=== PATIENT | female | born 1945 | race Caucasian/White ===

== ENCOUNTER 2016-03-05 17:52 | Emergency (ER) | payer MEDICARE ==
[2016-03-05 20:45] VITALS: TEMP 98.9
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
[2016-03-05] MEDS ORDERED: KETOROLAC TROMETHAMINE INJ 30 MG/ML VIAL IM ONE (21:00)
[2016-03-05] MEDS ORDERED: HYDROmorphone HCL INJ 2 MG/ML VIAL IM SCH (21:00)
--- NOTE | 2016-03-05 21:54 | ED.PDOC ---
History of Present Illness - General Chief Complaint: GI Problem Stated Complaint: LEFT GROIN PAIN Time Seen by Provider: 03/05/16 20:04 Source: patient Exam Limitations: no limitations - History of Present Illness Initial Comments: the patient is 70-year-old female presenting to the emergency room secondary to acute onset left inguinal and hip pain starting after she was trying to get from her wheelchair to her bed. She did not fall. The pain was immediate and excruciating. She now primarily has pain with attempting to adduct the left lower extremity. There is no crepitus. There is no bruising. There is no deformity. She does also have some discomfort with flexion at the knee at the hip. Timing/Duration: 1/2 hour Severity: severe Improving Factors: immobilization Worsening Factors: movement Associated Symptoms: denies symptoms Allergies/Adverse Reactions: Allergies Codeine Allergy (Verified 11/28/15 12:46) Home Medications: Ambulatory Orders Clonazepam 0.5 mg PO DAILY PRN 12/05/12 Losartan Potassium 50 mg PO BID #0 12/08/12 Metoprolol Tartrate 50 mg PO BID #0 12/08/12 Montelukast Sodium 10 mg PO HS #0 12/08/12 Venlafaxine HCl [Venlafaxine HCl ER] 150 mg PO BID #0 12/08/12 Atorvastatin Calcium [Lipitor] 10 mg PO BEDTIME 10/17/13 tiZANidine [Zanaflex] 4 mg PO TID PRN 10/17/13 HYDROcodone 5MG/APAP 325MG [[place] 5/325] 1 ea PO Q4H PRN 03/02/14 Folic Acid 1 mg PO DAILY 03/11/14 Furosemide 80 mg PO DAILY@1200 03/11/14 Immune Globulin (Human) IV or [Gammagard Liquid] 1 inj IJ WKLY 03/11/14 Levothyroxine Sodium 175 mcg PO ACBK 03/11/14 Mirtazapine 30 mg PO BEDTIME 03/11/14 [place]-3 Fatty Acids [Fish Oil 1200 mg] 1,200 mg PO BEDTIME 03/11/14 metOLazone [Zaroxolyn] 2.5 mg PO PRN PRN 03/11/14 Cholecalciferol [Vitamin D3] 1,000 unit PO DAILY 08/23/14 Metformin HCl 500 mg PO DAILYBK 08/23/14 Potassium Chloride [Micro-K] 40 meq PO DAILY 08/23/14 Vitamin E [E-400] 1,000 unit PO DAILY 08/23/14 Acetaminophen [Tylenol] 1 - 2 mg PO Q4H PRN 09/12/15 Albuterol Sulfate Nebs [Proventil Nebs] 2.5 mg INH Q1H PRN 09/12/15 Baclofen 5 mg PO TID PRN 09/12/15 Benzonatate 200 mg PO TID PRN 09/12/15 Cranberry-Vitamin C-Vitamin E [Cranberry Plus Vitamin C 140-100-3 mg-mg-Unit] 1 cap PO BID 09/12/15 Cyanocobalamin [B-12] 1,000 mcg PO DAILY 09/12/15 Diphenhydramine HCl 1 - 2 mg PO PRN PRN 09/12/15 Ipratropium Brom 0.03% Nasal [Atrovent Nasal [place] 0.03%] 1 spray BNAS Q4H PRN 09/12/15 Lidocaine 4% Topical [Xylocaine 4% Topical] 0 ml TOP PRN 09/12/15 Mirabegron [Myrbetriq] 25 mg PO DAILY 09/12/15 Mycostatin 30 gm TOP Q12H 09/12/15 Nitroglycerin 0.4 mg Tab [Nitrostat] 0.4 ea SL .Q5M PRN 09/12/15 Pantoprazole Sodium [Protonix] 40 mg PO ACBK 09/12/15 Potassium Chloride [Potassium Chloride ER] 30 meq PO 1200,2100 09/12/15 Prednisone 5 mg PO TID 09/12/15 Rizatriptan Benzoate 10 mg PO DAILY PRN 09/12/15 Sucralfate Tab [Carafate Tab] 1 gm PO AC 09/12/15 Triamcinolone Acetonide (Nasal [Nasacort Allergy 24Hr Chi] 2 spray NA DAILY PRN 09/12/15 Uloric 40 mg PO DAILY 09/12/15 Zaleplon [Sonata] 10 - 20 mg PO BEDTIME PRN 09/12/15 Albuterol Sulfate Nebs [Proventil Nebs] 2.5 mg INH QID #30 vial 09/15/15 Bumetanide [Bumex] 0.5 mg PO DAILY 11/28/15 Furosemide [Lasix Tab] 120 mg PO DAILY 11/28/15 Mupirocin Calcium (Topical) [Bactroban] 2 % EX BID 11/28/15 Pregabalin [Lyrica] 100 mg PO TID 11/28/15 Probiotic Product [Probiotic Daily] 1 cap PO BID 11/28/15 Guaifenesin [Mucinex] 600 mg PO BID 01/14/16 Insulin Lispro [Humalog] 0 u SUBCU ACHS #0 pen 01/19/16 Miconazole Nitrate Vag Supp [Monistat 7 Supp] 100 mg VAG BEDTIME #0 sup levoFLOXacin [Levaquin] 500 mg PO Q24H #27 tab 01/19/16 metroNIDAZOLE [Flagyl] 500 mg PO Q8H #81 tab 01/19/16 Xccomddxocsta-Bthl-Rfaspnofwe [Fioricet] 1 ea PO Q8H PRN #21 tab 03/05/16 Review of Systems - Review of Systems Review of Systems: 03/05/16 21:53 for new symptoms only Constitutional: States: no symptoms reported EENTM: States: no symptoms reported Respiratory: States: no symptoms reported Cardiology: States: no symptoms reported Gastrointestinal/Abdominal: States: no symptoms reported Genitourinary: States: no symptoms reported Musculoskeletal: States: see HPI Skin: States: no symptoms reported Neurological: States: no symptoms reported All other Systems: No Change from Baseline Past Medical History (General) - Patient Medical History Hx Seizures: No Hx Stroke: No Hx Dementia: No Hx Asthma: Yes Hx of COPD: Yes Hx Cardiac Disorders: Yes - CAD Hx Congestive Heart Failure: Yes Hx Pacemaker: No Hx Hypertension: Yes Hx Thyroid Disease: Yes - hypothyroidism Hx Diabetes: Yes Hx Gastroesophageal Reflux: Yes Hx Renal Disease: No Hx Cancer: No Hx of HIV: No Hx Hepatitis C: No Hx MRSA: Yes MRSA Source:: Wound - Vaccination History Hx Tetanus, Diphtheria Vaccination: No Hx Influenza Vaccination: Yes Hx Pneumococcal Vaccination: Yes - Social History Hx Tobacco Use: No Hx Chewing Tobacco Use: No Hx Alcohol Use: No Hx Substance Use: No Hx Substance Use Treatment: No Hx Depression: Yes Hx Physical Abuse: No Hx Emotional Abuse: No Hx Suspected Abuse: No - Female History Patient : No Family Medical History - Family History Father Living Status: Age at (years of age): 92 Cause of : [place], kidney failure Hx Family Hypertension: Yes Hx Family Diabetes: Yes Mother Family History: Unknown Living Status: Age at (years of age): 82 Cause of : leukemia and chf Hx Family Asthma: No Hx Family Congestive Heart Failure: Yes Hx Family Hypertension: Yes Hx Family Stroke: Yes Hx Cardiac Disease: Yes Hx Family Diabetes: No Hx Family Cancer: No Physical Exam - Physical Exam General Appearance: Alert, Anxious Eye Exam: bilateral normal Ears, Nose, Throat: normal ENT inspection, normal pharynx - nasal cannulas in place Neck: full range of motion, supple Respiratory: normal breath sounds, no respiratory distress, no accessory muscle use - nasal cannula in place Cardiovascular/Chest: normal peripheral pulses, no edema, other - regular rate Peripheral Pulses: radial,right: 2+, radial,left: 2+, dorsalis pedis,right: 2+, dorsalis pedis,left: 2+ Gastrointestinal/Abdominal: non tender, soft Rectal Exam: deferred Back Exam: normal inspection Extremity: normal inspection, no pedal edema, normal capillary refill, other - the patient has tenderness to palpation over the anterior proximal and medial thigh. On the left. No gross deformity. No bruising. Passive range of motion appears to be preserved. Active range of motion is severely limited due to pain. Neurologic: alert, normal mood/affect, oriented x 3 Skin Exam: normal color Comments: Vital Signs - 24 hr 03/05/16 03/05/16 20:40 21:10 Temperature 98.9 F Pulse Rate [LA] 93 H 84 Respiratory 20 24 Rate Blood Pressure 150/90 105/63 [LA] O2 Sat by Pulse 100 93 L Oximetry Progress - Progress Progress: 03/05/16 21:55 the patient is 70-year-old female that appears to have a left proximal thigh abductor muscle strain. [facility] this. She will be written for some additional Fioricet for pain control. She can otherwise use her chronic pain medications for this. She needs to not try and perform transfers on her own, she needs the help of the [facility] staff. ER warnings were given. - Results/Orders Results/Orders: x-ray of the pelvis and left hip are grossly within normal limits. Departure - Departure Clinical Impression: Injury of adductor muscle and tendon of left thigh Qualifiers: Encounter type: initial encounter Qualifier Code: (S76.202A) Unspecified injury of adductor muscle, fascia and tendon of left thigh, initial encounter Disposition: Discharge to Home or Self Care Condition: Fair Departure Forms: ED Discharge - Pt. Copy, Patient Portal Self Enrollment Instructions: Muscle Strain, DI for Muscle Strain Diet: diabetic diet Activity: increase activity as tolerated Referrals: Willard Butler MD [Primary Care Provider] - 1-2 Weeks Prescriptions: Odzlrdwwjwizh-Kklw-Fpexciayvy [Fioricet] 1 ea PO Q8H PRN #21 tab PRN Reason: Pain Home Medications: Ambulatory Orders Clonazepam 0.5 mg PO DAILY PRN 12/05/12 Losartan Potassium 50 mg PO BID #0 12/08/12 Metoprolol Tartrate 50 mg PO BID #0 12/08/12 Montelukast Sodium 10 mg PO HS #0 12/08/12 Venlafaxine HCl [Venlafaxine HCl ER] 150 mg PO BID #0 12/08/12 Atorvastatin Calcium [Lipitor] 10 mg PO BEDTIME 10/17/13 tiZANidine [Zanaflex] 4 mg PO TID PRN 10/17/13 HYDROcodone 5MG/APAP 325MG [[place] 5/325] 1 ea PO Q4H PRN 03/02/14 Folic Acid 1 mg PO DAILY 03/11/14 Furosemide 80 mg PO DAILY@1200 03/11/14 Immune Globulin (Human) IV or [Gammagard Liquid] 1 inj IJ WKLY 03/11/14 Levothyroxine Sodium 175 mcg PO ACBK 03/11/14 Mirtazapine 30 mg PO BEDTIME 03/11/14 [place]-3 Fatty Acids [Fish Oil 1200 mg] 1,200 mg PO BEDTIME 03/11/14 metOLazone [Zaroxolyn] 2.5 mg PO PRN PRN 03/11/14 Cholecalciferol [Vitamin D3] 1,000 unit PO DAILY 08/23/14 Metformin HCl 500 mg PO DAILYBK 08/23/14 Potassium Chloride [Micro-K] 40 meq PO DAILY 08/23/14 Vitamin E [E-400] 1,000 unit PO DAILY 08/23/14 Acetaminophen [Tylenol] 1 - 2 mg PO Q4H PRN 09/12/15 Albuterol Sulfate Nebs [Proventil Nebs] 2.5 mg INH Q1H PRN 09/12/15 Baclofen 5 mg PO TID PRN 09/12/15 Benzonatate 200 mg PO TID PRN 09/12/15 Cranberry-Vitamin C-Vitamin E [Cranberry Plus Vitamin C 140-100-3 mg-mg-Unit] 1 cap PO BID 09/12/15 Cyanocobalamin [B-12] 1,000 mcg PO DAILY 09/12/15 Diphenhydramine HCl 1 - 2 mg PO PRN PRN 09/12/15 Ipratropium Brom 0.03% Nasal [Atrovent Nasal [place] 0.03%] 1 spray BNAS Q4H PRN 09/12/15 Lidocaine 4% Topical [Xylocaine 4% Topical] 0 ml TOP PRN 09/12/15 Mirabegron [Myrbetriq] 25 mg PO DAILY 09/12/15 Mycostatin 30 gm TOP Q12H 09/12/15 Nitroglycerin 0.4 mg Tab [Nitrostat] 0.4 ea SL .Q5M PRN 09/12/15 Pantoprazole Sodium [Protonix] 40 mg PO ACBK 09/12/15 Potassium Chloride [Potassium Chloride ER] 30 meq PO 1200,2100 09/12/15 Prednisone 5 mg PO TID 09/12/15 Rizatriptan Benzoate 10 mg PO DAILY PRN 09/12/15 Sucralfate Tab [Carafate Tab] 1 gm PO AC 09/12/15 Triamcinolone Acetonide (Nasal [Nasacort Allergy 24Hr Chi] 2 spray NA DAILY PRN 09/12/15 Uloric 40 mg PO DAILY 09/12/15 Zaleplon [Sonata] 10 - 20 mg PO BEDTIME PRN 09/12/15 Albuterol Sulfate Nebs [Proventil Nebs] 2.5 mg INH QID #30 vial 09/15/15 Bumetanide [Bumex] 0.5 mg PO DAILY 11/28/15 Furosemide [Lasix Tab] 120 mg PO DAILY 11/28/15 Mupirocin Calcium (Topical) [Bactroban] 2 % EX BID 11/28/15 Pregabalin [Lyrica] 100 mg PO TID 11/28/15 Probiotic Product [Probiotic Daily] 1 cap PO BID 11/28/15 Guaifenesin [Mucinex] 600 mg PO BID 01/14/16 Insulin Lispro [Humalog] 0 u SUBCU ACHS #0 pen 01/19/16 Miconazole Nitrate Vag Supp [Monistat 7 Supp] 100 mg VAG BEDTIME #0 sup levoFLOXacin [Levaquin] 500 mg PO Q24H #27 tab 01/19/16 metroNIDAZOLE [Flagyl] 500 mg PO Q8H #81 tab 01/19/16 Qybytadhvlwtn-Ewoi-Ddrzsacfnc [Fioricet] 1 ea PO Q8H PRN #21 tab 03/05/16 Additional Instructions: the patient is 70-year-old female that appears to have a left proximal thigh abductor muscle strain. She [facility] to [facility] to work around this. She will be written for some additional Fioricet for pain control. She can otherwise use her chronic pain medications for this. She needs to not try and perform transfers on her own, she needs the help of the [facility] staff. ER warnings were given.
[2016-03-05] MEDS ORDERED: HYDROmorphone HCL INJ 2 MG/ML VIAL IM ONE (22:57)
[2016-03-05 23:23] VITALS: BP 123/80; O2SAT 99
== END 2016-03-05 23:20 ==
LOC: ER 17:52
DX: S76.202A Unspecified injury of adductor muscle, fascia and tendon of left thigh, initial encounter (principal); J44.9 Chronic obstructive pulmonary disease, unspecified; I11.0 Hypertensive heart disease with heart failure; I50.9 Heart failure, unspecified; I25.10 Atherosclerotic heart disease of native coronary artery without angina pectoris; E03.9 Hypothyroidism, unspecified; E11.9 Type 2 diabetes mellitus without complications; K21.9 Gastro-esophageal reflux disease without esophagitis; Z86.14 Personal history of Methicillin resistant Staphylococcus aureus infection; Z88.6 Allergy status to analgesic agent; Z79.899 Other long term (current) drug therapy; Z79.4 Long term (current) use of insulin; X58.XXXA Exposure to other specified factors, initial encounter; Y92.122 Bedroom in nursing home as the place of occurrence of the external cause
CPT/HCPCS: 72170; 73502; J1170; J1885

== ENCOUNTER 2016-03-08 16:52 | Emergency (ER) | payer MEDICARE ==
[2016-03-08 17:04] VITALS: TEMP 97.5
--- NOTE | 2016-03-08 17:14 | ED.PDOC ---
History of Present Illness - General Chief Complaint: Respiratory Problem Stated Complaint: shortness of breath Time Seen by Provider: 03/08/16 17:09 Source: patient, RN notes reviewed, Vital Signs reviewed, EMS, [facility] records Exam Limitations: no limitations - History of Present Illness Initial Comments: Patient reports that during physical therapy today she developed some chest tightness with SOB and her oxygen saturation dropped into the 50's. Reports it feels the same as when she has had pneumonia or fluid build up in her lungs in the past. EMS gave her a neb treatment and her O2 sats improved up tp 92% Timing/Duration: 4-6 hours Severity: moderate Activities at Onset: activity Possible Cause: chronic episodes Improving Factors: medication, rest Worsening Factors: movement Associated Symptoms: chest pain, cough, edema Respiratory Risk Factors: other - Hx of CHF and COPD Allergies/Adverse Reactions: Allergies Codeine Allergy (Verified 11/28/15 12:46) Home Medications: Ambulatory Orders Clonazepam 0.5 mg PO Q6H PRN 12/05/12 Montelukast Sodium 10 mg PO HS #0 12/08/12 Venlafaxine HCl [Venlafaxine HCl ER] 150 mg PO BID #0 12/08/12 tiZANidine [Zanaflex] 4 mg PO TID PRN 10/17/13 HYDROcodone 5MG/APAP 325MG [[place] 5/325] 1 ea PO Q4H PRN 03/02/14 Folic Acid 1 mg PO DAILY 03/11/14 Furosemide 80 mg PO NOON 03/11/14 Levothyroxine Sodium 175 mcg PO ACBK 03/11/14 Mirtazapine 30 mg PO BEDTIME 03/11/14 [place]-3 Fatty Acids [Fish Oil 1200 mg] 1,200 mg PO BEDTIME 03/11/14 metOLazone [Zaroxolyn] 2.5 mg PO PRN PRN 03/11/14 Metformin HCl 500 mg PO DAILYBK 08/23/14 Potassium Chloride [Micro-K] 40 meq PO DAILY 08/23/14 Vitamin E [E-400] 1,000 unit PO DAILY 08/23/14 Acetaminophen [Tylenol] 1 - 2 mg PO Q4H PRN 09/12/15 Albuterol Sulfate Nebs [Proventil Nebs] 2.5 mg INH Q4H PRN 09/12/15 Benzonatate 200 mg PO TID PRN 09/12/15 Cranberry-Vitamin C-Vitamin E [Cranberry Plus Vitamin C 140-100-3 mg-mg-Unit] 1 cap PO BID 09/12/15 Diphenhydramine HCl 1 - 2 mg PO PRN PRN 09/12/15 Ipratropium Brom 0.03% Nasal [Atrovent Nasal [place] 0.03%] 1 spray BNAS Q4H PRN 09/12/15 Mirabegron [Myrbetriq] 25 mg PO DAILY 09/12/15 Nitroglycerin 0.4 mg Tab [Nitrostat] 0.4 ea SL .Q5M PRN 09/12/15 Pantoprazole Sodium [Protonix] 40 mg PO ACBK 09/12/15 Potassium Chloride [Potassium Chloride ER] 30 meq PO 1200,2100 09/12/15 Prednisone 5 mg PO TID 09/12/15 Rizatriptan Benzoate 10 mg PO DAILY PRN 09/12/15 Sucralfate Tab [Carafate Tab] 1 gm PO .TIDAC 09/12/15 Triamcinolone Acetonide (Nasal [Nasacort Allergy 24Hr Chi] 2 spray NA DAILY PRN 09/12/15 Uloric 40 mg PO DAILY 09/12/15 Zaleplon [Sonata] 10 - 20 mg PO BEDTIME PRN 09/12/15 Albuterol Sulfate Nebs [Proventil Nebs] 2.5 mg INH QID #30 vial 09/15/15 Bumetanide [Bumex] 0.5 mg PO DAILY PRN 11/28/15 Furosemide [Lasix Tab] 120 mg PO DAILY 11/28/15 Pregabalin [Lyrica] 100 mg PO TID 11/28/15 Guaifenesin [Mucinex] 600 mg PO BID 01/14/16 Miconazole Nitrate Vag Supp [Monistat 7 Supp] 100 mg VAG BEDTIME #0 sup Azithromycin Tab [Zithromax] 250 mg PO QDPC #4 tab 03/08/16 Cholecalciferol [Vitamin D3] 1,000 unit PO DAILY 03/08/16 Cyanocobalamin [B12] 1,000 mcg PO DAILY 03/08/16 Lactobacillus [Acidophilus] 2 cap PO BID 03/08/16 Losartan Potassium 25 mg PO BID 03/08/16 Metoprolol Tartrate 25 mg PO BID 03/08/16 SITagliptin [Januvia] 50 mg PO DAILY 03/08/16 Review of Systems - Review of Systems Constitutional: Denies: chills, diaphoresis, fever, malaise, weakness EENTM: States: no symptoms reported Respiratory: States: see HPI, cough, short of breath. Denies: stridor, wheezing Cardiology: States: chest pain, edema. Denies: palpitations, syncope Gastrointestinal/Abdominal: States: diarrhea. Denies: abdominal pain, constipation, nausea, vomiting Genitourinary: States: no symptoms reported Musculoskeletal: States: no symptoms reported Skin: States: no symptoms reported Neurological: States: headache. Denies: numbness, paresthesia, tingling, tremors, weakness Endocrine: States: no symptoms reported Past Medical History (General) - Patient Medical History Hx Seizures: No Hx Stroke: No Hx Dementia: No Hx Asthma: Yes Hx of COPD: Yes Hx Cardiac Disorders: Yes - CAD Hx Congestive Heart Failure: Yes Hx Pacemaker: No Hx Hypertension: Yes Hx Thyroid Disease: Yes - hypothyroidism Hx Diabetes: Yes Hx Gastroesophageal Reflux: Yes Hx Renal Disease: No Hx Cancer: No Hx of HIV: No Hx Hepatitis C: No Hx MRSA: Yes MRSA Source:: Wound Surgical History: appendectomy, tonsillectomy, Hysterectomy - Vaccination History Hx Tetanus, Diphtheria Vaccination: No Hx Influenza Vaccination: Yes Hx Pneumococcal Vaccination: Yes - Social History Hx Tobacco Use: No Hx Chewing Tobacco Use: No Hx Alcohol Use: No Hx Substance Use: No Hx Substance Use Treatment: No Hx Depression: Yes Hx Physical Abuse: No Hx Emotional Abuse: No Hx Suspected Abuse: No - Activities of Daily Living [facility] (if applicable[facility]:: [facility] - Female History Patient : No Family Medical History - Family History Father Living Status: Age at (years of age): 92 Cause of : [place], kidney failure Hx Family Hypertension: Yes Hx Family Diabetes: Yes Mother Family History: Unknown Living Status: Age at (years of age): 82 Cause of : leukemia and chf Hx Family Asthma: No Hx Family Congestive Heart Failure: Yes Hx Family Hypertension: Yes Hx Family Stroke: Yes Hx Cardiac Disease: Yes Hx Family Diabetes: No Hx Family Cancer: No Physical Exam - Physical Exam General Appearance: Alert, Comfortable, No apparent distress, Well Developed, Well Groomed, Well Hydrated, Well Nourished Neck: non-tender, full range of motion, supple, normal inspection Respiratory: chest non-tender, no respiratory distress, decreased breath sounds - RLL, accessory muscle use, crackles - bilaterally, wheezing - LLL Cardiovascular/Chest: regular rate, rhythm, no gallop, no murmur Peripheral Pulses: dorsalis pedis,right: 2+, dorsalis pedis,left: 2+ Gastrointestinal/Abdominal: normal bowel sounds, non tender, soft Extremity: normal range of motion, non-tender, pedal edema - 2-3+ pitting edema Neurologic: no motor/sensory deficits, alert, normal mood/affect, oriented x 3 Skin Exam: normal color, warm/dry Lymphatic: no adenopathy Progress - Progress Progress: 03/08/16 19:27 Discussed results with patient. Overall things look good. Mildly elevated CK-MB and D Dimer can be explained by her recent fall. Elevated white count is most likely due to acute bronchitis and COPD exacerbation. She is maintaining her oxygen saturation much better here - consistently >92% on 3L. - EKG/XRAY/CT EKG: Sinus, no ST T wave changes Departure - Departure Clinical Impression: Acute bronchitis, COPD exacerbation Time of Disposition: 19:30 Disposition: Discharge to Rehab Facility Condition: Fair Departure Forms: ED Discharge - Pt. Copy, Patient Portal Self Enrollment Instructions: DI for Acute Bronchitis, DI for Chronic Obstructive Pulmonary Disease Diet: resume usual diet Activity: increase activity as tolerated Prescriptions: Azithromycin Tab [Zithromax] 250 mg PO QDPC #4 tab Home Medications: Ambulatory Orders Clonazepam 0.5 mg PO Q6H PRN 12/05/12 Montelukast Sodium 10 mg PO HS #0 12/08/12 Venlafaxine HCl [Venlafaxine HCl ER] 150 mg PO BID #0 12/08/12 tiZANidine [Zanaflex] 4 mg PO TID PRN 10/17/13 HYDROcodone 5MG/APAP 325MG [[place] 5/325] 1 ea PO Q4H PRN 03/02/14 Folic Acid 1 mg PO DAILY 03/11/14 Furosemide 80 mg PO NOON 03/11/14 Levothyroxine Sodium 175 mcg PO ACBK 03/11/14 Mirtazapine 30 mg PO BEDTIME 03/11/14 [place]-3 Fatty Acids [Fish Oil 1200 mg] 1,200 mg PO BEDTIME 03/11/14 metOLazone [Zaroxolyn] 2.5 mg PO PRN PRN 03/11/14 Metformin HCl 500 mg PO DAILYBK 08/23/14 Potassium Chloride [Micro-K] 40 meq PO DAILY 08/23/14 Vitamin E [E-400] 1,000 unit PO DAILY 08/23/14 Acetaminophen [Tylenol] 1 - 2 mg PO Q4H PRN 09/12/15 Albuterol Sulfate Nebs [Proventil Nebs] 2.5 mg INH Q4H PRN 09/12/15 Benzonatate 200 mg PO TID PRN 09/12/15 Cranberry-Vitamin C-Vitamin E [Cranberry Plus Vitamin C 140-100-3 mg-mg-Unit] 1 cap PO BID 09/12/15 Diphenhydramine HCl 1 - 2 mg PO PRN PRN 09/12/15 Ipratropium Brom 0.03% Nasal [Atrovent Nasal [place] 0.03%] 1 spray BNAS Q4H PRN 09/12/15 Mirabegron [Myrbetriq] 25 mg PO DAILY 09/12/15 Nitroglycerin 0.4 mg Tab [Nitrostat] 0.4 ea SL .Q5M PRN 09/12/15 Pantoprazole Sodium [Protonix] 40 mg PO ACBK 09/12/15 Potassium Chloride [Potassium Chloride ER] 30 meq PO 1200,2100 09/12/15 Prednisone 5 mg PO TID 09/12/15 Rizatriptan Benzoate 10 mg PO DAILY PRN 09/12/15 Sucralfate Tab [Carafate Tab] 1 gm PO .TIDAC 09/12/15 Triamcinolone Acetonide (Nasal [Nasacort Allergy 24Hr Chi] 2 spray NA DAILY PRN 09/12/15 Uloric 40 mg PO DAILY 09/12/15 Zaleplon [Sonata] 10 - 20 mg PO BEDTIME PRN 09/12/15 Albuterol Sulfate Nebs [Proventil Nebs] 2.5 mg INH QID #30 vial 09/15/15 Bumetanide [Bumex] 0.5 mg PO DAILY PRN 11/28/15 Furosemide [Lasix Tab] 120 mg PO DAILY 11/28/15 Pregabalin [Lyrica] 100 mg PO TID 11/28/15 Guaifenesin [Mucinex] 600 mg PO BID 01/14/16 Miconazole Nitrate Vag Supp [Monistat 7 Supp] 100 mg VAG BEDTIME #0 sup Azithromycin Tab [Zithromax] 250 mg PO QDPC #4 tab 03/08/16 Cholecalciferol [Vitamin D3] 1,000 unit PO DAILY 03/08/16 Cyanocobalamin [B12] 1,000 mcg PO DAILY 03/08/16 Lactobacillus [Acidophilus] 2 cap PO BID 03/08/16 Losartan Potassium 25 mg PO BID 03/08/16 Metoprolol Tartrate 25 mg PO BID 03/08/16 SITagliptin [Januvia] 50 mg PO DAILY 03/08/16 Additional Instructions: Continue Oxygen @ 3L
[2016-03-08] MEDS ORDERED: HYDROcodone 5MG/APAP 325MG 1 EA TAB PO ONE (17:50)
--- NOTE | 2016-03-08 18:00 | RAD ---
EXAM DESCRIPTION: X-RAY CHEST- TWO VIEW CLINICAL HISTORY: Shortness of breath. COMPARISON: 12/18/2015 and 12/23/2014 TECHNIQUE: 2.0 views of the chest. FINDINGS: There is presence of mild atelectasis/parenchymal scarring in the left lower lobe of the lung, unchanged since 12/18/2015. There are no airspace infiltrates. There is no pleural effusion. There are no pneumothoraces. The cardiomediastinal contour is stable. IMPRESSION: There is presence of mild atelectasis/parenchymal scarring in the left lower lobe of the lung, unchanged since 12/18/2015. Electronically signed by: Elio Hernandez MD 03/08/2016 17:59
[2016-03-08] MEDS ORDERED: LORazepam 0.5 MG TAB PO ONE (18:18)
[2016-03-08 18:24] VITALS: O2SAT 95
[2016-03-08] MEDS ORDERED: methylPREDNISolone SODIUM SUC 125 MG/2 ML VIAL IV ONE (18:43)
[2016-03-08] MEDS ORDERED: SODIUM CHLORIDE 0.9% 1000ML 1,000 ML IVS ONE (18:43)
[2016-03-08] MEDS ORDERED: AZITHROMYCIN 250 MG TAB PO ONE (19:29)
[2016-03-08 19:34] VITALS: BP 119/71
== END 2016-03-08 20:39 ==
LOC: ER 16:52
DX: J44.0 Chronic obstructive pulmonary disease with (acute) lower respiratory infection (principal); J20.9 Acute bronchitis, unspecified; J44.1 Chronic obstructive pulmonary disease with (acute) exacerbation; I11.0 Hypertensive heart disease with heart failure; I50.9 Heart failure, unspecified; K21.9 Gastro-esophageal reflux disease without esophagitis; E03.9 Hypothyroidism, unspecified; F32.9 Major depressive disorder, single episode, unspecified; E11.9 Type 2 diabetes mellitus without complications; Z86.14 Personal history of Methicillin resistant Staphylococcus aureus infection; Z79.899 Other long term (current) drug therapy; Z88.6 Allergy status to analgesic agent

== ENCOUNTER 2016-03-09 08:39 | Emergency (ER) | payer MEDICARE ==
--- NOTE | 2016-03-09 09:14 | ED.PDOC ---
History of Present Illness - General Chief Complaint: Laceration Stated Complaint: laceration to left lower leg Time Seen by Provider: 03/09/16 09:06 Source: patient Exam Limitations: no limitations - History of Present Illness Initial Comments: Patient presents after hitting her left leg against a railing at home opening up a laceration. Patient says that there is pain at the laceration site and in her left ribs, which she said she fell against. No other physical complaints. Patient is very irritable and when I asked her to point towards her injury, she asked "Are you blind?" I asked her to just tell me where the laceration was and she told me. Patient is in no apparent distress and is very annoyed at being interrupted during a text conversation on her phone. She would like pain medications as well. She claims to have had a tetanus booster in the last 5 years. Timing/Duration: 1-3 hours Severity: moderate Worsening Factors: nothing Associated Symptoms: denies symptoms Allergies/Adverse Reactions: Allergies Codeine Allergy (Verified 03/09/16 09:04) Home Medications: Ambulatory Orders Clonazepam 0.5 mg PO Q6H PRN 12/05/12 Montelukast Sodium 10 mg PO HS #0 12/08/12 Venlafaxine HCl [Venlafaxine HCl ER] 150 mg PO BID #0 12/08/12 tiZANidine [Zanaflex] 4 mg PO TID PRN 10/17/13 HYDROcodone 5MG/APAP 325MG [[place] 5/325] 1 ea PO Q4H PRN 03/02/14 Folic Acid 1 mg PO DAILY 03/11/14 Furosemide 80 mg PO NOON 03/11/14 Levothyroxine Sodium 175 mcg PO ACBK 03/11/14 Mirtazapine 30 mg PO BEDTIME 03/11/14 Malin-3 Fatty Acids [Fish Oil 1200 mg] 1,200 mg PO BEDTIME 03/11/14 metOLazone [Zaroxolyn] 2.5 mg PO PRN PRN 03/11/14 Metformin HCl 500 mg PO DAILYBK 08/23/14 Potassium Chloride [Micro-K] 40 meq PO DAILY 08/23/14 Vitamin E [E-400] 1,000 unit PO DAILY 08/23/14 Acetaminophen [Tylenol] 1 - 2 mg PO Q4H PRN 09/12/15 Albuterol Sulfate Nebs [Proventil Nebs] 2.5 mg INH Q4H PRN 09/12/15 Benzonatate 200 mg PO TID PRN 09/12/15 Cranberry-Vitamin C-Vitamin E [Cranberry Plus Vitamin C 140-100-3 mg-mg-Unit] 1 cap PO BID 09/12/15 Diphenhydramine HCl 1 - 2 mg PO PRN PRN 09/12/15 Ipratropium Brom 0.03% Nasal [Atrovent Nasal [place] 0.03%] 1 spray BNAS Q4H PRN 09/12/15 Mirabegron [Myrbetriq] 25 mg PO DAILY 09/12/15 Nitroglycerin 0.4 mg Tab [Nitrostat] 0.4 ea SL .Q5M PRN 09/12/15 Pantoprazole Sodium [Protonix] 40 mg PO ACBK 09/12/15 Potassium Chloride [Potassium Chloride ER] 30 meq PO 1200,2100 09/12/15 Prednisone 5 mg PO TID 09/12/15 Rizatriptan Benzoate 10 mg PO DAILY PRN 09/12/15 Sucralfate Tab [Carafate Tab] 1 gm PO .TIDAC 09/12/15 Triamcinolone Acetonide (Nasal [Nasacort Allergy 24Hr Chi] 2 spray NA DAILY PRN 09/12/15 Uloric 40 mg PO DAILY 09/12/15 Zaleplon [Sonata] 10 - 20 mg PO BEDTIME PRN 09/12/15 Albuterol Sulfate Nebs [Proventil Nebs] 2.5 mg INH QID #30 vial 09/15/15 Bumetanide [Bumex] 0.5 mg PO DAILY PRN 11/28/15 Furosemide [Lasix Tab] 120 mg PO DAILY 11/28/15 Pregabalin [Lyrica] 100 mg PO TID 11/28/15 Guaifenesin [Mucinex] 600 mg PO BID 01/14/16 Miconazole Nitrate Vag Supp [Monistat 7 Supp] 100 mg VAG BEDTIME #0 sup Azithromycin Tab [Zithromax] 250 mg PO QDPC #4 tab 03/08/16 Cholecalciferol [Vitamin D3] 1,000 unit PO DAILY 03/08/16 Cyanocobalamin [B12] 1,000 mcg PO DAILY 03/08/16 Lactobacillus [Acidophilus] 2 cap PO BID 03/08/16 Losartan Potassium 25 mg PO BID 03/08/16 Metoprolol Tartrate 25 mg PO BID 03/08/16 SITagliptin [Januvia] 50 mg PO DAILY 03/08/16 Cephalexin Monohydrate [Keflex] 500 mg PO BID #10 cap 03/09/16 Review of Systems - Review of Systems Constitutional: States: no symptoms reported EENTM: States: no symptoms reported Respiratory: States: no symptoms reported Cardiology: States: no symptoms reported Gastrointestinal/Abdominal: States: no symptoms reported Genitourinary: States: no symptoms reported Musculoskeletal: States: no symptoms reported Skin: States: see HPI Neurological: States: no symptoms reported Endocrine: States: no symptoms reported Hematologic/Lymphatic: States: no symptoms reported Past Medical History (General) - Patient Medical History Hx Seizures: No Hx Stroke: No Hx Dementia: No Hx Asthma: Yes Hx of COPD: Yes - oxygen dependent Hx Cardiac Disorders: Yes - CAD Hx Congestive Heart Failure: Yes Hx Pacemaker: No Hx Hypertension: Yes Hx Thyroid Disease: Yes - hypothyroidism Hx Diabetes: Yes Hx Gastroesophageal Reflux: Yes Hx Renal Disease: No Hx Cancer: No Hx of HIV: No Hx Hepatitis C: No Hx MRSA: Yes MRSA Source:: Wound - Vaccination History Hx Tetanus, Diphtheria Vaccination: No Hx Influenza Vaccination: Yes Hx Pneumococcal Vaccination: Yes - Social History Hx Tobacco Use: No Hx Chewing Tobacco Use: No Hx Alcohol Use: No Hx Substance Use: No Hx Substance Use Treatment: No Hx Depression: Yes Hx Physical Abuse: No Hx Emotional Abuse: No Hx Suspected Abuse: No - Female History Patient is a Female of Child Bearing Age (10 -59 yrs old): No Patient : No Family Medical History - Family History Father Living Status: Age at (years of age): 92 Cause of : [place], kidney failure Hx Family Hypertension: Yes Hx Family Diabetes: Yes Mother Family History: Unknown Living Status: Age at (years of age): 82 Cause of : leukemia and chf Hx Family Asthma: No Hx Family Congestive Heart Failure: Yes Hx Family Hypertension: Yes Hx Family Stroke: Yes Hx Cardiac Disease: Yes Hx Family Diabetes: No Hx Family Cancer: No Physical Exam - Physical Exam General Appearance: Agitated Respiratory: lungs clear Cardiovascular/Chest: regular rate, rhythm Gastrointestinal/Abdominal: normal bowel sounds, non tender, soft Extremity: pedal edema - 4+ bipedal edema Neurologic: no motor/sensory deficits Skin Exam: other - 10 cm V shaped laceration on the lateral lower left leg. Adipose tissue visible. Hemostatic. Lymphatic: no adenopathy Progress - Progress Progress: 03/09/16 11:02 Morphine 4 mg IV x one and benadryl 25 mg IV x one. Area was prepped and draped in a sterile fashion. 12 cc of lidocaine with epinephrine was used to gain good local anesthesia. 16 interrupted sutures with 4-0 proline were used to obtain good wound edge approximation. Areas was clean, dry and hemostatic at the end of the procedure. Patient tolerated procedure well. Sent home with keflex 500 mg po bid x 5 days for infection prophylaxis. Departure - Departure Clinical Impression: Laceration Disposition: Discharge to SNF Condition: Good Departure Forms: ED Discharge - Pt. Copy, Patient Portal Self Enrollment Diet: resume usual diet Activity: increase activity as tolerated Prescriptions: Cephalexin Monohydrate [Keflex] 500 mg PO BID #10 cap Home Medications: Ambulatory Orders Clonazepam 0.5 mg PO Q6H PRN 12/05/12 Montelukast Sodium 10 mg PO HS #0 12/08/12 Venlafaxine HCl [Venlafaxine HCl ER] 150 mg PO BID #0 12/08/12 tiZANidine [Zanaflex] 4 mg PO TID PRN 10/17/13 HYDROcodone 5MG/APAP 325MG [[place] 5/325] 1 ea PO Q4H PRN 03/02/14 Folic Acid 1 mg PO DAILY 03/11/14 Furosemide 80 mg PO NOON 03/11/14 Levothyroxine Sodium 175 mcg PO ACBK 03/11/14 Mirtazapine 30 mg PO BEDTIME 03/11/14 Malin-3 Fatty Acids [Fish Oil 1200 mg] 1,200 mg PO BEDTIME 03/11/14 metOLazone [Zaroxolyn] 2.5 mg PO PRN PRN 03/11/14 Metformin HCl 500 mg PO DAILYBK 08/23/14 Potassium Chloride [Micro-K] 40 meq PO DAILY 08/23/14 Vitamin E [E-400] 1,000 unit PO DAILY 08/23/14 Acetaminophen [Tylenol] 1 - 2 mg PO Q4H PRN 09/12/15 Albuterol Sulfate Nebs [Proventil Nebs] 2.5 mg INH Q4H PRN 09/12/15 Benzonatate 200 mg PO TID PRN 09/12/15 Cranberry-Vitamin C-Vitamin E [Cranberry Plus Vitamin C 140-100-3 mg-mg-Unit] 1 cap PO BID 09/12/15 Diphenhydramine HCl 1 - 2 mg PO PRN PRN 09/12/15 Ipratropium Brom 0.03% Nasal [Atrovent Nasal [place] 0.03%] 1 spray BNAS Q4H PRN 09/12/15 Mirabegron [Myrbetriq] 25 mg PO DAILY 09/12/15 Nitroglycerin 0.4 mg Tab [Nitrostat] 0.4 ea SL .Q5M PRN 09/12/15 Pantoprazole Sodium [Protonix] 40 mg PO ACBK 09/12/15 Potassium Chloride [Potassium Chloride ER] 30 meq PO 1200,2100 09/12/15 Prednisone 5 mg PO TID 09/12/15 Rizatriptan Benzoate 10 mg PO DAILY PRN 09/12/15 Sucralfate Tab [Carafate Tab] 1 gm PO .TIDAC 09/12/15 Triamcinolone Acetonide (Nasal [Nasacort Allergy 24Hr Chi] 2 spray NA DAILY PRN 09/12/15 Uloric 40 mg PO DAILY 09/12/15 Zaleplon [Sonata] 10 - 20 mg PO BEDTIME PRN 09/12/15 Albuterol Sulfate Nebs [Proventil Nebs] 2.5 mg INH QID #30 vial 09/15/15 Bumetanide [Bumex] 0.5 mg PO DAILY PRN 11/28/15 Furosemide [Lasix Tab] 120 mg PO DAILY 11/28/15 Pregabalin [Lyrica] 100 mg PO TID 11/28/15 Guaifenesin [Mucinex] 600 mg PO BID 01/14/16 Miconazole Nitrate Vag Supp [Monistat 7 Supp] 100 mg VAG BEDTIME #0 sup Azithromycin Tab [Zithromax] 250 mg PO QDPC #4 tab 03/08/16 Cholecalciferol [Vitamin D3] 1,000 unit PO DAILY 03/08/16 Cyanocobalamin [B12] 1,000 mcg PO DAILY 03/08/16 Lactobacillus [Acidophilus] 2 cap PO BID 03/08/16 Losartan Potassium 25 mg PO BID 03/08/16 Metoprolol Tartrate 25 mg PO BID 03/08/16 SITagliptin [Januvia] 50 mg PO DAILY 03/08/16 Cephalexin Monohydrate [Keflex] 500 mg PO BID #10 cap 03/09/16 Additional Instructions: Take prescription medications as directed. Return to your primary doctor in 10 days for suture removal. Return to ER for increased bleeding, pain, or fever.
[2016-03-09] MEDS ORDERED: MORPHINE SULFATE INJ 10 MG/ML VIAL IV ONE (09:17)
[2016-03-09] MEDS ORDERED: diphenhydrAMINE HCL 50 MG/ML VIAL IV ONE (09:19)
[2016-03-09] MEDS ORDERED: LIDOCAINE 1% 10 ML VIAL INJ ONE (09:24)
--- NOTE | 2016-03-09 09:54 | RAD ---
EXAM DESCRIPTION: XR RIBS 2 VIEWS UNILATERAL CLINICAL HISTORY: 70 y/o F, fall with rib pain COMPARISON: 08 March 2016. TECHNIQUE: Three views. FINDINGS: No pneumothorax is detected. No rib fracturing is seen. IMPRESSION: Normal left rib detail. Electronically signed by: Reagan Shelton MD 03/09/2016 09:52
[2016-03-09] MEDS ORDERED: LIDOCAINE 1% W/ EPINEPHRINE 20 ML VIAL INJ ONE ×2 (10:15→10:45)
[2016-03-09] MEDS ORDERED: POVIDONE IODINE 10 % 15 ML UD TOP ONE (10:17)
[2016-03-09] MEDS ORDERED: POVIDONE IODINE 5% TOP ONE (11:14)
[2016-03-09] MEDS ORDERED: POVIDONE IODINE 10% TOP ONE (11:20)
[2016-03-09 13:14] VITALS: BP 152/79; TEMP 98.5; O2SAT 92
== END 2016-03-09 12:50 ==
LOC: ER 08:39
DX: S81.812A Laceration without foreign body, left lower leg, initial encounter (principal); J44.9 Chronic obstructive pulmonary disease, unspecified; E03.9 Hypothyroidism, unspecified; I11.0 Hypertensive heart disease with heart failure; I50.9 Heart failure, unspecified; E11.9 Type 2 diabetes mellitus without complications; K21.9 Gastro-esophageal reflux disease without esophagitis; Z99.81 Dependence on supplemental oxygen; Z88.6 Allergy status to analgesic agent; Z86.14 Personal history of Methicillin resistant Staphylococcus aureus infection; Z79.899 Other long term (current) drug therapy; W22.8XXA Striking against or struck by other objects, initial encounter; Y92.009 Unspecified place in unspecified non-institutional (private) residence as the place of occurrence of the external cause

== ENCOUNTER 2016-03-10 19:28 | Inpatient (IN) | payer MEDICARE ==
--- NOTE | 2016-03-10 20:22 | ED.PDOC ---
History of Present Illness - General Chief Complaint: Respiratory Problem Stated Complaint: SHORTNESS OF BREATH Time Seen by Provider: 03/10/16 20:21 Source: patient, RN notes reviewed, Vital Signs reviewed, EMS notes reviewed Exam Limitations: no limitations - History of Present Illness Initial Comments: She stated that she had productive cough for the last several weeks and had been using her bronchodilator treatment as needed as well as her o2 at 2l/min by nc at home but starting yesterday getting more sob despite using her breathing treatment every hour also had sharp left sided chest pain for several minutes but gone on arrival at er. Also fell yesterday but did not come to er. Timing/Duration: other - yesterday Severity: moderate Improving Factors: nothing Worsening Factors: movement Associated Symptoms: chest pain - gone on arrival er, shortness of breath Allergies/Adverse Reactions: Allergies Codeine Allergy (Verified 03/09/16 09:04) Home Medications: Ambulatory Orders Clonazepam 0.5 mg PO Q6H PRN 12/05/12 Montelukast Sodium 10 mg PO HS #0 12/08/12 Venlafaxine HCl [Venlafaxine HCl ER] 150 mg PO BID #0 12/08/12 tiZANidine [Zanaflex] 4 mg PO TID PRN 10/17/13 HYDROcodone 5MG/APAP 325MG [[place] 5/325] 1 ea PO Q4H PRN 03/02/14 Folic Acid 1 mg PO DAILY 03/11/14 Furosemide 80 mg PO NOON 03/11/14 Levothyroxine Sodium 175 mcg PO ACBK 03/11/14 Mirtazapine 30 mg PO BEDTIME 03/11/14 [place]-3 Fatty Acids [Fish Oil 1200 mg] 1,200 mg PO BEDTIME 03/11/14 metOLazone [Zaroxolyn] 2.5 mg PO PRN PRN 03/11/14 Metformin HCl 500 mg PO DAILYBK 08/23/14 Potassium Chloride [Micro-K] 40 meq PO DAILY 08/23/14 Vitamin E [E-400] 1,000 unit PO DAILY 08/23/14 Acetaminophen [Tylenol] 1 - 2 mg PO Q4H PRN 09/12/15 Albuterol Sulfate Nebs [Proventil Nebs] 2.5 mg INH Q4H PRN 09/12/15 Benzonatate 200 mg PO TID PRN 09/12/15 Cranberry-Vitamin C-Vitamin E [Cranberry Plus Vitamin C 140-100-3 mg-mg-Unit] 1 cap PO BID 09/12/15 Diphenhydramine HCl 1 - 2 mg PO PRN PRN 09/12/15 Ipratropium Brom 0.03% Nasal [Atrovent Nasal [place] 0.03%] 1 spray BNAS Q4H PRN 09/12/15 Mirabegron [Myrbetriq] 25 mg PO DAILY 09/12/15 Nitroglycerin 0.4 mg Tab [Nitrostat] 0.4 ea SL .Q5M PRN 09/12/15 Pantoprazole Sodium [Protonix] 40 mg PO ACBK 09/12/15 Potassium Chloride [Potassium Chloride ER] 30 meq PO 1200,2100 09/12/15 Prednisone 5 mg PO TID 09/12/15 Rizatriptan Benzoate 10 mg PO DAILY PRN 09/12/15 Sucralfate Tab [Carafate Tab] 1 gm PO .TIDAC 09/12/15 Triamcinolone Acetonide (Nasal [Nasacort Allergy 24Hr Chi] 2 spray NA DAILY PRN 09/12/15 Uloric 40 mg PO DAILY 09/12/15 Zaleplon [Sonata] 10 - 20 mg PO BEDTIME PRN 09/12/15 Albuterol Sulfate Nebs [Proventil Nebs] 2.5 mg INH QID #30 vial 09/15/15 Bumetanide [Bumex] 0.5 mg PO DAILY PRN 11/28/15 Furosemide [Lasix Tab] 120 mg PO DAILY 11/28/15 Pregabalin [Lyrica] 100 mg PO TID 11/28/15 Guaifenesin [Mucinex] 600 mg PO BID 01/14/16 Miconazole Nitrate Vag Supp [Monistat 7 Supp] 100 mg VAG BEDTIME #0 sup Azithromycin Tab [Zithromax] 250 mg PO QDPC #4 tab 03/08/16 Cholecalciferol [Vitamin D3] 1,000 unit PO DAILY 03/08/16 Cyanocobalamin [B12] 1,000 mcg PO DAILY 03/08/16 Lactobacillus [Acidophilus] 2 cap PO BID 03/08/16 Losartan Potassium 25 mg PO BID 03/08/16 Metoprolol Tartrate 25 mg PO BID 03/08/16 SITagliptin [Januvia] 50 mg PO DAILY 03/08/16 Cephalexin Monohydrate [Keflex] 500 mg PO BID #10 cap 03/09/16 Review of Systems - Review of Systems Constitutional: States: no symptoms reported EENTM: States: no symptoms reported Respiratory: States: cough, short of breath Cardiology: States: chest pain Gastrointestinal/Abdominal: States: no symptoms reported Genitourinary: States: other - oab wears diapers Musculoskeletal: States: joint pain Skin: States: dryness Neurological: States: no symptoms reported Endocrine: States: no symptoms reported Hematologic/Lymphatic: States: no symptoms reported Past Medical History (General) - Patient Medical History Hx Seizures: No Hx Stroke: No Hx Dementia: No Hx Asthma: Yes Hx of COPD: Yes - oxygen dependent Hx Cardiac Disorders: Yes - CAD Hx Congestive Heart Failure: Yes Hx Pacemaker: No Hx Hypertension: Yes Hx Thyroid Disease: Yes - hypothyroidism Hx Diabetes: Yes Hx Gastroesophageal Reflux: Yes Hx Renal Disease: No Hx Cancer: No Hx of HIV: No Hx Hepatitis C: No Hx MRSA: Yes MRSA Source:: Wound Surgical History: appendectomy Other Surgeries:: ,hysterctomy,cts,shoulder,t& a - Vaccination History Hx Tetanus, Diphtheria Vaccination: No Hx Influenza Vaccination: Yes Hx Pneumococcal Vaccination: Yes - Social History Hx Tobacco Use: No Hx Chewing Tobacco Use: No Hx Alcohol Use: No Hx Substance Use: No Hx Substance Use Treatment: No Hx Depression: Yes Hx Physical Abuse: No Hx Emotional Abuse: No Hx Suspected Abuse: No - Activities of Daily Living Shelter/Assisted Living (if applicable):: [place] Grooming Ability: Standby Assistance Eating (Feeding) Ability: Standby Assistance Toileting Ability: Standby Assistance - Female History Patient : No Family Medical History - Family History Father Living Status: Age at (years of age): 92 Cause of : AR, kidney failure Hx Family Hypertension: Yes Hx Family Diabetes: Yes Hx Family Cancer: Yes - leukemia-mom;kidney-dad Mother Family History: Unknown Living Status: Age at (years of age): 82 Cause of : leukemia and chf Hx Family Asthma: No Hx Family Congestive Heart Failure: Yes Hx Family Hypertension: Yes Hx Family Stroke: Yes Hx Cardiac Disease: Yes Hx Family Diabetes: No Hx Family Cancer: No Physical Exam - Physical Exam General Appearance: Alert, Comfortable, No apparent distress Eye Exam: bilateral normal Ears, Nose, Throat: hearing grossly normal, normal ENT inspection, normal pharynx Neck: non-tender, supple Respiratory: no respiratory distress, no accessory muscle use, rales - bases Cardiovascular/Chest: no gallop, no murmur, tachycardia - heart rate 103/min Gastrointestinal/Abdominal: non tender, soft, no organomegaly Extremity: no calf tenderness, pedal edema - 2+ Neurologic: alert, normal mood/affect, oriented x 3 Skin Exam: warm/dry, other - sutured laceration left leg clear intact, rash - rightleg Lymphatic: no adenopathy Progress - Results/Orders Results/Orders: 03/10/16 20:22 INFLUENZA A & B ANTIGEN Stat 03/10/16 20:30 EKG STAT 03/10/16 21:41 BLOOD CULTURE Stat Laboratory Results WBC 15.9 K/mm3 (4.8-10.8) H 03/10/16 20:50 RBC 4.35 M/mm3 (4.20-5.40) 03/10/16 20:50 Hgb 9.5 gm/dL (12.0-16.0) L 03/10/16 20:50 Hct 31.1 % (36.0-47.0) L 03/10/16 20:50 MCV 71.4 fl (81.0-99.0) L 03/10/16 20:50 MCH 21.8 pg (27.0-31.0) L 03/10/16 20:50 MCHC 30.7 g/dL (33.0-37.0) L 03/10/16 20:50 RDW 20.7 % (11.5-14.5) H 03/10/16 20:50 Plt Count 225 K/mm3 (130-400) 03/10/16 20:50 MPV 10.2 fl (7.40-10.4) 03/10/16 20:50 Absolute Neuts (auto) Not Reportable 03/10/16 20:50 Absolute Lymphs (auto) Not Reportable 03/10/16 20:50 Absolute Monos (auto) Not Reportable 03/10/16 20:50 Absolute Eos (auto) Not Reportable 03/10/16 20:50 Neutrophils % Not Reportable 03/10/16 20:50 Neutrophils % (Manual) 79.0 % 03/10/16 20:50 Lymphocytes % Not Reportable 03/10/16 20:50 Lymphocytes % (Manual) 11.0 % 03/10/16 20:50 Monocytes % Not Reportable 03/10/16 20:50 Monocytes % (Manual) 5.0 % 03/10/16 20:50 Eosinophils % Not Reportable 03/10/16 20:50 Basophils % Not Reportable 03/10/16 20:50 Band Neutrophils 3.0 % 03/10/16 20:50 Eosinophils 2.0 % 03/10/16 20:50 Platelet Estimate Normal (NORMAL) 03/10/16 20:50 Anisocytosis 2+ 03/10/16 20:50 Microcytosis 2+ 03/10/16 20:50 PT 10.6 SECONDS (9.4-12.5) 03/10/16 20:50 INR 0.940 03/10/16 20:50 PTT (SP) 26.4 SECONDS (25.1-36.5) 03/10/16 20:50 D-Dimer, Quantitative 275 ng/mL (0-230) H* 03/10/16 20:50 Sodium 137 mmol/L (135-145) 03/10/16 20:50 Potassium 3.1 mmol/L (3.6-5.0) L 03/10/16 20:50 Chloride 89 mmol/L (101-111) L 03/10/16 20:50 Carbon Dioxide 36 mmol/L (21-31) H 03/10/16 20:50 Anion Gap 15.1 (12-18) 03/10/16 20:50 BUN 49 mg/dL (7-18) H 03/10/16 20:50 Creatinine 1.66 mg/dL (0.6-1.3) H 03/10/16 20:50 BUN/Creatinine Ratio 29.5 (10-20) H 03/10/16 20:50 Random Glucose 211 mg/dL (70-105) H D 03/10/16 20:50 Serum Osmolality 293.0 mOsm/L (275-295) 03/10/16 20:50 Lactic Acid 3.3 mmol/L (0.5-2.2) H* 03/10/16 20:50 Calcium 9.7 mg/dL (8.4-10.2) 03/10/16 20:50 Magnesium 1.8 mg/dL (1.8-2.5) 03/10/16 20:50 Total Bilirubin 0.5 mg/dL (0.2-1.0) 03/10/16 20:50 Direct Bilirubin < 0.1 mg/dL (0-0.2) 03/10/16 20:50 Indirect Bilirubin 0.4 mg/dL (0.2-0.8) 03/10/16 20:50 AST 31 IU/L (10-42) 03/10/16 20:50 ALT 30 IU/L (10-60) 03/10/16 20:50 Alkaline Phosphatase 67 IU/L (42-121) 03/10/16 20:50 Creatine Kinase 32 IU/L (26-140) 03/10/16 20:50 CK-MB (CK-2) 3.7 ng/mL (0.0-4.4) 03/10/16 20:50 CK-MB (CK-2) % Not Reportable 03/10/16 20:50 Troponin I 0.07 ng/mL (0.01-0.05) H* 03/10/16 20:50 B-Natriuretic Peptide 221.0 pg/ml (0-100) H* 03/10/16 20:50 Serum Total Protein 7.2 gm/dL (6.4-8.2) 03/10/16 20:50 Albumin 3.5 g/dl (3.2-5.5) 03/10/16 20:50 Globulin Cancelled 03/10/16 20:50 Albumin/Globulin Ratio Cancelled 03/10/16 20:50 03/10/16 20:30 EKG STAT 03/10/16 22:10 BLOOD CULTURE Stat 03/11/16 00:10 Catheter:[place] QSHIFT 03/11/16 01:28 CARDIAC ENZYME GROUP Stat Laboratory Results WBC 15.9 K/mm3 (4.8-10.8) H 03/10/16 20:50 RBC 4.35 M/mm3 (4.20-5.40) 03/10/16 20:50 Hgb 9.5 gm/dL (12.0-16.0) L 03/10/16 20:50 Hct 31.1 % (36.0-47.0) L 03/10/16 20:50 MCV 71.4 fl (81.0-99.0) L 03/10/16 20:50 MCH 21.8 pg (27.0-31.0) L 03/10/16 20:50 MCHC 30.7 g/dL (33.0-37.0) L 03/10/16 20:50 RDW 20.7 % (11.5-14.5) H 03/10/16 20:50 Plt Count 225 K/mm3 (130-400) 03/10/16 20:50 MPV 10.2 fl (7.40-10.4) 03/10/16 20:50 Absolute Neuts (auto) Not Reportable 03/10/16 20:50 Absolute Lymphs (auto) Not Reportable 03/10/16 20:50 Absolute Monos (auto) Not Reportable 03/10/16 20:50 Absolute Eos (auto) Not Reportable 03/10/16 20:50 Neutrophils % Not Reportable 03/10/16 20:50 Neutrophils % (Manual) 79.0 % 03/10/16 20:50 Lymphocytes % Not Reportable 03/10/16 20:50 Lymphocytes % (Manual) 11.0 % 03/10/16 20:50 Monocytes % Not Reportable 03/10/16 20:50 Monocytes % (Manual) 5.0 % 03/10/16 20:50 Eosinophils % Not Reportable 03/10/16 20:50 Basophils % Not Reportable 03/10/16 20:50 Band Neutrophils 3.0 % 03/10/16 20:50 Eosinophils 2.0 % 03/10/16 20:50 Platelet Estimate Normal (NORMAL) 03/10/16 20:50 Anisocytosis 2+ 03/10/16 20:50 Microcytosis 2+ 03/10/16 20:50 PT 10.6 SECONDS (9.4-12.5) 03/10/16 20:50 INR 0.940 03/10/16 20:50 PTT (SP) 26.4 SECONDS (25.1-36.5) 03/10/16 20:50 D-Dimer, Quantitative 275 ng/mL (0-230) H* 03/10/16 20:50 Sodium 137 mmol/L (135-145) 03/10/16 20:50 Potassium 3.1 mmol/L (3.6-5.0) L 03/10/16 20:50 Chloride 89 mmol/L (101-111) L 03/10/16 20:50 Carbon Dioxide 36 mmol/L (21-31) H 03/10/16 20:50 Anion Gap 15.1 (12-18) 03/10/16 20:50 BUN 49 mg/dL (7-18) H 03/10/16 20:50 Creatinine 1.66 mg/dL (0.6-1.3) H 03/10/16 20:50 BUN/Creatinine Ratio 29.5 (10-20) H 03/10/16 20:50 Random Glucose 211 mg/dL (70-105) H D 03/10/16 20:50 Serum Osmolality 293.0 mOsm/L (275-295) 03/10/16 20:50 Lactic Acid 3.3 mmol/L (0.5-2.2) H* 03/10/16 20:50 Calcium 9.7 mg/dL (8.4-10.2) 03/10/16 20:50 Magnesium 1.8 mg/dL (1.8-2.5) 03/10/16 20:50 Total Bilirubin 0.5 mg/dL (0.2-1.0) 03/10/16 20:50 Direct Bilirubin < 0.1 mg/dL (0-0.2) 03/10/16 20:50 Indirect Bilirubin 0.4 mg/dL (0.2-0.8) 03/10/16 20:50 AST 31 IU/L (10-42) 03/10/16 20:50 ALT 30 IU/L (10-60) 03/10/16 20:50 Alkaline Phosphatase 67 IU/L (42-121) 03/10/16 20:50 Creatine Kinase 32 IU/L (26-140) 03/10/16 20:50 CK-MB (CK-2) 3.7 ng/mL (0.0-4.4) 03/10/16 20:50 CK-MB (CK-2) % Not Reportable 03/10/16 20:50 Troponin I 0.07 ng/mL (0.01-0.05) H* 03/10/16 20:50 B-Natriuretic Peptide 221.0 pg/ml (0-100) H* 03/10/16 20:50 Serum Total Protein 7.2 gm/dL (6.4-8.2) 03/10/16 20:50 Albumin 3.5 g/dl (3.2-5.5) 03/10/16 20:50 Globulin Cancelled 03/10/16 20:50 Albumin/Globulin Ratio Cancelled 03/10/16 20:50 Urine Color Yellow (Yellow) 03/11/16 00:15 Urine Appearance Clear (Clear) 03/11/16 00:15 Urine pH 6.5 (4.5-7.8) 03/11/16 00:15 Ur Specific [place] 1.010 (1.005-1.030) 03/11/16 00:15 Urine Protein Negative mg/dL 03/11/16 00:15 Urine Glucose (UA) Negative mg/dL (Negative) 03/11/16 00:15 Urine Ketones Negative mg/dL (NEGATIVE) 03/11/16 00:15 Urine Blood Negative (Negative) 03/11/16 00:15 Urine Nitrite Negative 03/11/16 00:15 Urine Bilirubin Negative (NEGATIVE) 03/11/16 00:15 Urine Urobilinogen 0.2 mg/dL (0.2-1.0) 03/11/16 00:15 Ur Leukocyte Esterase Negative (Negative) 03/11/16 00:15 Urine RBC 0 /hpf 03/11/16 00:15 Urine WBC 0 /hpf 03/11/16 00:15 Ur Epithelial Cells 0 /hpf 03/11/16 00:15 Urine Bacteria 0 03/11/16 00:15 Stool Occult Blood Negative 03/10/16 23:50 - EKG/XRAY/CT EKG: Sinus, Tachy - heart rate 107,occ pvc XRAY: chest - no acute cardiopulmonary abnormalities Departure - Departure Clinical Impression: COPD (chronic obstructive pulmonary disease) with chronic bronchitis, Diastolic CHF, acute on chronic, Renal insufficiency, mild, Anemia of chronic illness, Oxygen dependent, Diabetes 1.5, managed as type 2 Time of Disposition: 02:21 - D/W ANDERS Sarkar-Hospitalist Disposition: Admit Patient Condition: Fair Departure Forms: ED Discharge - Pt. Copy, Patient Portal Self Enrollment Referrals: Willard Butler MD [Primary Care Provider] - 1-2 Weeks Home Medications: Ambulatory Orders Clonazepam 0.5 mg PO Q6H PRN 12/05/12 Montelukast Sodium 10 mg PO HS #0 12/08/12 Venlafaxine HCl [Venlafaxine HCl ER] 150 mg PO BID #0 12/08/12 tiZANidine [Zanaflex] 4 mg PO TID PRN 10/17/13 HYDROcodone 5MG/APAP 325MG [[place] 5/325] 1 ea PO Q4H PRN 03/02/14 Folic Acid 1 mg PO DAILY 03/11/14 Furosemide 80 mg PO NOON 03/11/14 Levothyroxine Sodium 175 mcg PO ACBK 03/11/14 Mirtazapine 30 mg PO BEDTIME 03/11/14 [place]-3 Fatty Acids [Fish Oil 1200 mg] 1,200 mg PO BEDTIME 03/11/14 metOLazone [Zaroxolyn] 2.5 mg PO PRN PRN 03/11/14 Metformin HCl 500 mg PO DAILYBK 08/23/14 Potassium Chloride [Micro-K] 40 meq PO DAILY 08/23/14 Vitamin E [E-400] 1,000 unit PO DAILY 08/23/14 Acetaminophen [Tylenol] 1 - 2 mg PO Q4H PRN 09/12/15 Albuterol Sulfate Nebs [Proventil Nebs] 2.5 mg INH Q4H PRN 09/12/15 Benzonatate 200 mg PO TID PRN 09/12/15 Cranberry-Vitamin C-Vitamin E [[place]ranberry Plus Vitamin C 140-100-3 mg-mg-Unit] 1 cap PO BID 09/12/15 Diphenhydramine HCl 1 - 2 mg PO PRN PRN 09/12/15 Ipratropium Brom 0.03% Nasal [Atrovent Nasal [place] 0.03%] 1 spray BNAS Q4H PRN 09/12/15 Mirabegron [Myrbetriq] 25 mg PO DAILY 09/12/15 Nitroglycerin 0.4 mg Tab [Nitrostat] 0.4 ea SL .Q5M PRN 09/12/15 Pantoprazole Sodium [Protonix] 40 mg PO ACBK 09/12/15 Potassium Chloride [Potassium Chloride ER] 30 meq PO 1200,2100 09/12/15 Prednisone 5 mg PO TID 09/12/15 Rizatriptan Benzoate 10 mg PO DAILY PRN 09/12/15 Sucralfate Tab [Carafate Tab] 1 gm PO .TIDAC 09/12/15 Triamcinolone Acetonide (Nasal [Nasacort Allergy 24Hr Chi] 2 spray NA DAILY PRN 09/12/15 Uloric 40 mg PO DAILY 09/12/15 Zaleplon [Sonata] 10 - 20 mg PO BEDTIME PRN 09/12/15 Albuterol Sulfate Nebs [Proventil Nebs] 2.5 mg INH QID #30 vial 09/15/15 Bumetanide [Bumex] 0.5 mg PO DAILY PRN 11/28/15 Furosemide [Lasix Tab] 120 mg PO DAILY 11/28/15 Pregabalin [Lyrica] 100 mg PO TID 11/28/15 Guaifenesin [Mucinex] 600 mg PO BID 01/14/16 Miconazole Nitrate Vag Supp [Monistat 7 Supp] 100 mg VAG BEDTIME #0 sup Azithromycin Tab [Zithromax] 250 mg PO QDPC #4 tab 03/08/16 Cholecalciferol [Vitamin D3] 1,000 unit PO DAILY 03/08/16 Cyanocobalamin [B12] 1,000 mcg PO DAILY 03/08/16 Lactobacillus [Acidophilus] 2 cap PO BID 03/08/16 Losartan Potassium 25 mg PO BID 03/08/16 Metoprolol Tartrate 25 mg PO BID 03/08/16 SITagliptin [Januvia] 50 mg PO DAILY 03/08/16 Cephalexin Monohydrate [Keflex] 500 mg PO BID #10 cap 03/09/16
[2016-03-10] MEDS ORDERED: IPRATROPIUM/ALBUTEROL 3 ML VIAL NEB ONE (20:56)
--- NOTE | 2016-03-10 21:02 | RAD ---
EXAM DESCRIPTION: XR CHEST 1 VIEW CLINICAL HISTORY: 70-year-old female with cough. COMPARISON: 03/08/2016. TECHNIQUE: Single AP view of the chest was obtained portably. FINDINGS: The cardiac mediastinal silhouette is within normal limits. Heart size is normal. Low lung volumes grossly clear without discrete focal opacity, pleural effusion or pneumothorax. Hazy bilateral linear basilar opacity suggest subsegmental atelectasis similar in comparison to the previous examination versus scarring. The osseous structures are within normal limits. IMPRESSION: No acute cardiopulmonary abnormalities. Electronically signed by: Ly Salas MD 03/10/2016 21:00
[2016-03-11] MEDS ORDERED: cefTRIAXone SODIUM 1 GM in SODIUM CHL 0.9% 50ML MIN-BAG+ 50 ML IVPB ONE (01:43)
[2016-03-11] MEDS ORDERED: SODIUM CHL 0.9% 50ML MIN-BAG+ 50 ML IVPB ONE (01:52)
[2016-03-11] MEDS ORDERED: cefTRIAXone SODIUM 1 GM VIAL ONE (01:52)
[2016-03-11] MEDS ORDERED: ALBUTEROL SULFATE 2.5 MG/3 ML VIAL NEB PRN (02:30)
[2016-03-11] MEDS ORDERED: GLUCAGON INJ 1 MG VIAL SUBCU PRN (02:30)
[2016-03-11] MEDS ORDERED: DEXTROSE 50% 25 GM/50 ML SYG IV PRN (02:30)
[2016-03-11] MEDS ORDERED: ACETAMINOPHEN 325 MG TAB PO PRN (02:30)
[2016-03-11] MEDS ORDERED: AZITHROMYCIN IV 500 MG in SODIUM CHLORIDE 0.9% 250ML 250 ML IVPB SCH (02:30)
[2016-03-11] MEDS ORDERED: ONDANSETRON INJ 4 MG/2 ML VIAL IV PRN (02:30)
[2016-03-11] MEDS: IPRATROPIUM/ALBUTEROL 3 ML VIAL INH SCH ×2 (02:45→07:55)
--- NOTE | 2016-03-11 03:00 | HP ---
SUPERVISING PHYSICIAN: José Miguel Palacios MD CHIEF COMPLAINT: Worsening shortness of breath. HISTORY OF PRESENT ILLNESS: Ms. Wei is a 70 year-old female patient that was seen in the Emergency Department on 03/10 initially complaining of worsening shortness of breath with a productive cough for the last several weeks and increased use of bronchodilator treatments as well as 02. She developed severe shortness of breath yesterday requiring her to take her breathing treatments every hour and also noted development of a left sharp chest pain. The pain lasted for several minutes but was gone on arrival to the Emergency Room. It was also noted that the patient had been seen in the Emergency Room multiple times this past several days in the past week for falls and shortness of breath. She was seen on 03/08/16 complaining of shortness of breath and was treated for exacerbation of chronic obstructive pulmonary disease with acute bronchitis and given a Z-pack at time of discharge. Today in the Emergency Department, laboratory studies showed she had an elevated white count of 15.9 with a left shift with 79% neutrophils and 3% bands. She also had an elevated lactic acid of 3.3 and a troponin level elevated at 0.07 with a BNP of 221. Initially in the Emergency Department, her oxygen saturations were 82% on room air with increased respiratory efforts, shortness of breath, shallow and tachypneic at 25 breaths per minute. After several breathing treatments she haad some improvement initially with Spo2 of 86% on nasal cannula at 2 liters and after additional breathing treatments her SpO2 improved to 96% via nasal cannula at rest. Given that the patient had recently been treated for acute bronchitis with exacerbation of chronic obstructive pulmonary disease and started on antibiotics but failed to show and significant improvement as evidenced worsening shortness of breath with a production cough and purulent sputum,Ms Wei was admitted to the medical/ surgical floor. Diagnosis of chronic obstructive pulmonary disease with acute exacerbation concerning for early pneumonia having failed to respond to outpatient treatment plan. She was admitted in stable condition. PAST MEDICAL HISTORY: 1. Chronic renal insufficiency, stage 3. 2. Chronic hypoxia requiring 02 chronically. 3. History of myocarditis in 2008. 4. History of congestive heart failure with a diastolic dysfunction grade 1 with ejection fraction of 55% last documented in February 2015. 5. Chronic lymphedema, especially of lower extremities for 40 to 50 years after giving to 2 sons. 6. Chronic migraines. 7. Gamekeeper's thumb from a previous fall in the last year treated and followed by Dr. Harris Warren. 8. Depression and anxiety. 9. Hypertension. 10. Rheumatoid arthritis. 11. Morbid obesity. 12. Hyperlipidemia. 13. Gastroesophageal reflux disease. 14. History of coronary artery disease. 15. History of psoriasis. 16. Type 2 diabetes on oral therapy. 17. Multiple recent Emergency Room visits for shortness of breath and falls with a laceration to the left lower leg requiring suturing on 03/09/16 as well as treatment for exacerbation of COPD on 03/08/16. 18. Chronic obstructive pulmonary disease with a history of bronchiectasis and multiple exacerbations requiring hospitalization within the last year and failing to responded to recent outpatient treatment. 19. History of chronic respiratory failure with hypoxia. 20. History of MRSA infections with MRSA surveillance cultures 2016 and sputum culture in 2013 showing positive. PAST SURGICAL HISTORY: 1. Appendectomy. 2. Exploratory laparotomy. 3. Caesarean section x2. 4. Hysterectomy with a total salpingo-oophorectomy. 5. Left carpal tunnel release. 6. Tonsillectomy. CURRENT MEDICATIONS: Please refer to electronic medical records and admission notes for updated list of medications. ALLERGIES: CODEINE. FAMILY HISTORY: High blood pressure, coronary artery disease, diabetes, leukemia, heart failure and brain tumor. SOCIAL HISTORY: The patient has never smoked but she did live with who smoked cigars daily and who in the last 5 years from pancreatic cancer. She lives currently at [facility] and denies any alcohol or illicit drug use. REVIEW OF SYSTEMS: CONSTITUTIONAL: Denies any chills or fever or unintentional weight gain. HEENT: Denies visual disturbance, blurred vision, ear pain, discharge, rhinorrhea or epistaxis. She does note that she has a yeast infection chronically from antibiotic usage. CARDIOVASCULAR: As noted in the History of Present Illness. Sharp chest pain prior to arrival in the Emergency Department resolving without intervention prior to admission to the Emergency Department with a history of chronic pedal edema and lymphedema. RESPIRATORY: As per History of Present Illness, worsening shortness of breath requiring bronchodilator every hour with a history of significant limited ability of activity secondary to congestive heart failure, chronic obstructive pulmonary disease and morbid obesity. Denies any hemoptysis or wheezing but notes that she is having a more productive cough purulent in nature. GASTROINTESTINAL: She denies any nausea or vomiting, abdominal pain but notes that she is having some issues with constipation since admission to [facility] and does have a history of recent antibiotics within the last 90 days, specifically Keflex, doxycycline, vancomycin and Zithromax. GENITOURINARY: Denies hematuria or incontinence but does have some itching secondary to the yeast injection. It is currently treated with Monistat 7. INTEGUMENTARY: Multiple ecchymotic areas to both upper and lower extremities from recent falls with a laceration to the left lateral lower extremity requiring sutures on 03/09 having been started on Keflex at time of discharge. NEUROLOGICAL: Denies any numbness or dysesthesias, but does have a history of migraines but no headaches on admission. She denies any recent loss of consciousness, is unsure why she has been falling, but does not feel like she had any loss of consciousness, just some weakness and dizziness and increasing shortness of breath. MUSCULOSKELETAL: Acute laceration with sutures on 03/09/16 after a same level fall with a history of right elbow cellulitis and swelling, and a left ankle fracture requiring hospitalization as well as a left gamekeeper's thumb from a fall. PHYSICAL EXAMINATION: VITAL SIGNS: Temperature 99.4, pulse 108, blood pressure 125/79, respirations 24 to 25, 02 saturation showing 82% on room air. After breathing treatments and 2 liters nasal cannula showing improvement to 95 to 96% on 2 liters at rest. Admission weight 120.1 kg which is stable compared to previous admissions showing last admission of 120.2 with a previous weight of 121.3 prior to admission on 01/13/16. GENERAL: On exam on the Medical/Surgical floor, the patient is resting and appears to be in no acute distress. She is alert and oriented. Denies any chest pains. Notes that she just has a little bit of shortness of breath, but is in no distress. HEENT: Tympanic membranes are clear bilaterally. Oropharynx is pink. Mucosal membranes are dry without any lesions. There is some note of whitish plaque on the posterior pharynx and tongue consistent with thrush. NECK: No jugular venous distention. CHEST: Diminished throughout with some notable rhonchi on the left lower posterior, but no wheezing or rales noted. CARDIOVASCULAR: Regular rate and rhythm without any appreciable murmurs, rubs , or gallops. ABDOMEN: Obese but soft, non-tender, positive bowel sounds. EXTREMITIES: She has notable chronic lymphedema to the lower extremities which appears to be near her baseline compared to previous admissions. There is note of a new skin laceration to the left lateral lower leg with multiple sutures in place from a previous fall on 03/09/16. There is also note of multiple areas of old ecchymosis to both lower extremities. Pulses distally are 1+ bilaterally. NEUROLOGICAL: She is alert and oriented x 3. Cranial nerves II through XII are grossly intact. Facial features are symmetrical. Extraocular movements are within normal limits. No nystagmus is noted. There are no notable motor or sensory deficits on exam. LABORATORY: White count 15.9, hemoglobin 9.5, hematocrit 31.1, platelet count 225. Differential does show a left shift with 79% neutrophils with 3% bands. Coagulation studies show a normal PT and PTT but an elevated D-dimer at 275 consistent with the patient having multiple falls and bruises, and current laceration. Chemistries on admission show potassium 3.1, sodium was normal at 137, anion gap 15.1, carbon dioxide was elevated at 36 with BUN 49, creatinine 1.6. Glucose 211, serum osmolality 293, lactic acid 3.3, magnesium 1.8, calcium 9.7. Liver functions all show to be within normal limits. CPK was normal at 32. Troponin was elevated initially on admission of 0.07 with an elevated BNP of 221. Troponins repeated 6 hours after admission to the Emergency Department showed troponin to be normalized at 0.06 and at time of admission to the Medical/Surgical floor showed normalization to 0.05. Catheterized urine showed to be within normal limits. She had 1 stool occult blood that was negative. MICROBIOLOGY: MRSA surveillance is pending. Nasal swab for Influenza A and B by PCR shows to be negative. She has 2 blood cultures that are pending. She has a sputum culture pending. RADIOLOGY: Chest x-ray in the Emergency Department per radiology interpretation showed some hazy bilateral linear basilar opacities suggestive of subsegmental atelectasis similar in comparison to the previous examination versus scarring. Lung volumes are noted to be grossly clear without discrete focal opacities, pleural effusions or pneumothorax. The cardiac mediastinal silhouette was within normal limits. Heart size is normal size. ASSESSMENT: 1. Acute exacerbation of chronic obstructive pulmonary disease with a history of bronchiectasis having failed to respond to recent outpatient treatment plan with concerns for left lower lobe pneumonia likely community acquired with sputum cultures pending with the patient being started on Rocephin and Azithromycin. 2. Chronic renal insufficiency likely secondary to prerenal azotemia with the patient having high-doses of diuretics on a daily basis for treatment of lower extremity edema and chronic congestive heart failure. 3. Leukocytosis likely secondary to left lower pneumonia. 4. Chest pains on admission with an elevated BNP in a patient requiring chronic O2 having chest pains that resolved prior to admission without any intervention showing normalization of her troponins prior to admission to the Medical/ Surgical floor. Chest pains were likely secondary to stressed induced ischaemia with troponin being elevated secondary to mild anemia and congestive heart failure in the presence of and acute exacerbation of chronic obstructive pulmonary disease. 5. Chronic congestive heart failure with a diastolic dysfunction grade 1 with ejection fraction of 55% last documented in February 2015 with a noted elevated BNP on admission. 6. Chronic lymphedema of the lower extremities, stable. 7. History of recent falls without any mention of loss of consciousness resulting in multiple bruises and a laceration to the left lower extremity requiring sutures on 03/09/16. 8. Type 2 diabetes mellitus on p.o. medication. 9. History of depression and anxiety. 10. Chronic morbid obesity. 11. History of chronic psoriasis. 12. Chronic history of lower back pain. 13. History of MRSA infections in the past, MRSA sputum culture in 2013 and a MRSA surveillance culture in November 2015. 14. Oral Candidiasis/thrush secondary to multiple antibiotic administration within the last 90 days. 15. Vaginitis secondary to yeast infection secondary to multiple antibiotic administration within the last 90 days. 16. 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 PLAN: The patient is admitted to the Medical/Surgical floor for continued treatment and evaluation. She will be placed on telemetry with close monitoring and serial enzymes to further rule out an acute myocardial event. She is not having any chest pains on admission and most likely chest pains were related to ischaemia with troponin being elevated secondary to mild anemia and congestive heart failure in the presence of exacerbation of chronic obstructive pulmonary disease. In regards to exacerbation of her COPD and concern for early pneumonia on the left lower lobe, will start her on Azithromycin and Rocephin parenterally, and await sputum cultures. She will also be started on some Solu-Medrol 80 mg loading dose to be followed-up with 60 mg every 6 hours times 3 doses with the patient having a significant decrease in lung volume and some wheezing on admission to the Emergency Department. She will be started on Lovenox for DVT prophylaxis and early ambulation as able to safely ambulate. In regards to constipation/obstipation, will give her some Milk of Magnesia. Will start her on some Nystatin swish and swallow for the thrush as well as give her 150 mg of Diflucan times 1 in efforts to treat the vaginal Candidiasis secondary to complications from multiple rounds of antibiotics. Will closely monitor her chest x-ray clinically as she has in the past had MRSA infections and has been recently admitted to a intermediate designer care facility at [facility], as well as has a remote history of Pseudomonas in a wound and having been on multiple antibiotics within the last 90 days. At this point, she is stable and has shown good improvement from admission, but again will continue to monitor this before we further change any antibiotic therapy, and await final culture results of her sputum. Will start her on some Align given the history of multiple antibiotics and current antibiotic therapy. Once her medications have been reviewed and updated in the electronic medical records, will start as appropriate, but at this time will hold her Metformin given her renal insufficiency on admission and plan to start her on insulin 8 units a.c. along with sliding scale in anticipation of elevation of blood sugars secondary to corticosteroids. Will give her DuoNeb breathing treatments q.i.d. as well as aggressive pulmonary toiletry, including incentive spirometry. Will plan to repeat a chest x-ray and laboratory studies in the morning. Anticipate length of stay to be 2 to 3 days. Until discharge, will continue to monitor the patient closely and treat appropriately. #[id number] [facility]
[2016-03-11] MEDS ORDERED: SODIUM CHLORIDE 0.9% 250ML 250 ML ONE (03:48)
[2016-03-11] MEDS ORDERED: AZITHROMYCIN IV 500 MG VIAL IVPB ONE (03:49)
[2016-03-11] MEDS: SODIUM CHLORIDE 0.9% (FLUSH) 10 ML SYG IV PRN ×2 (03:57→06:26)
[2016-03-11] MEDS: IV SET AND CAP CHANGE INJ INJ SCH (04:02)
[2016-03-11] MEDS: HYDROcodone 5MG/APAP 325MG 1 EA TAB PO PRN (04:49)
[2016-03-11] MEDS: PANTOPRAZOLE SODIUM IV 40 MG VIAL IV SCH (06:25)
[2016-03-11] MEDS: INSULIN LISPRO 100 UNITS/ML PEN SUBCU SCH ×6 (07:18→21:22)
[2016-03-11] MEDS: IPRATROPIUM/ALBUTEROL 3 ML VIAL NEB SCH ×3 (08:15→20:15)
[2016-03-11] MEDS ORDERED: tiZANidine 4 MG TAB PO PRN (08:55)
[2016-03-11] MEDS ORDERED: [UNRECOGNIZED DRUG - REMARK] NAS PRN (08:55)
[2016-03-11] MEDS ORDERED: ZALEPLON PO PRN (09:02)
[2016-03-11] MEDS ORDERED: MAGNESIUM HYDROXIDE 30 ML UD PO ONE (09:16)
[2016-03-11] MEDS ORDERED: methylPREDNISolone SODIUM SUC 125 MG/2 ML VIAL IV ONE (09:23)
[2016-03-11] MEDS ORDERED: BACITRACIN 0.9 GM UD PCKT ONE (09:38)
[2016-03-11] MEDS: METOPROLOL TARTRATE 50 MG TAB PO SCH ×2 (09:44→17:12)
[2016-03-11] MEDS: PREGABALIN 100 MG CAP PO SCH ×3 (09:44→21:06)
[2016-03-11] MEDS: BISACODYL TAB 5 MG TAB PO SCH (09:44)
[2016-03-11] MEDS: LOSARTAN POTASSIUM 25 MG TAB PO SCH ×2 (09:44→21:07)
[2016-03-11] MEDS: CYANOCOBALAMIN 1,000 MCG TAB PO SCH (09:45)
[2016-03-11] MEDS: SITagliptin 50 MG TAB PO SCH (09:45)
[2016-03-11] MEDS: FOLIC ACID 1 MG TAB PO SCH (09:45)
[2016-03-11] MEDS: POTASSIUM CHLORIDE 20 MEQ TAB PO SCH (09:45)
[2016-03-11] MEDS: guaiFENesin ER TAB 600 MG TAB PO SCH ×2 (09:45→20:57)
[2016-03-11] MEDS: SUCRALFATE 1 GM TAB PO SCH ×3 (09:45→17:12)
--- NOTE | 2016-03-11 09:48 | PCM.CORE ---
Physician DVT/VTE - Nurse DVT Assessment & Total Each Risk Factor Represents 3 Points: Medical PT with Hx of CT, CHF, Severe infection/sepsis Each Risk Factor Represents 2 Points: Age 60-74, Confined to bed >72 hours Each Risk Factor Represents 1 Point: Medical PT at Bed Rest Each Risk Factor is 1 Point: Varicose Veins/Edema Legs, Obesity (BMI >25), Serious Lung disease (pnemonia <1month, COPD, emphysema,etc) DVT Assessment Score: 11 - 5 or more Very High Risk Treatments: Early Ambulation * Pharmacological: Enoxaparin 40mg SQ Daily
[2016-03-11] MEDS ORDERED: FLUCONAZOLE 150 MG TAB PO ONE (09:59)
[2016-03-11] MEDS ORDERED: IPRATROPIUM BROM 0.03% NASAL 30 ML BTTL BNAS PRN (10:00)
[2016-03-11] MEDS: ENOXAPARIN SODIUM 40 MG/0.4 ML SYG SUBCU SCH (10:40)
[2016-03-11] MEDS: BACITRACIN 0.9 GM UD PCKT TOP SCH ×2 (10:42→21:07)
[2016-03-11] MEDS: ULORIC 40 MG PO SCH (11:24)
[2016-03-11] MEDS: MIRABEGRON 25 MG PO SCH (11:24)
[2016-03-11] MEDS: FUROSEMIDE 40 MG TAB PO SCH (11:28)
[2016-03-11] MEDS: metOLazone 2.5 MG TAB PO SCH (11:28)
[2016-03-11] MEDS: NYSTATIN SUSPENSION 5 ML UD MT SCH ×3 (12:27→20:57)
[2016-03-11] MEDS: methylPREDNISolone SODIUM SUC 125 MG/2 ML VIAL IV SCH ×2 (15:40→21:42)
[2016-03-11] MEDS: MAGNESIUM HYDROXIDE 30 ML UD PO SCH (21:06)
[2016-03-11] MEDS: MIRTAZAPINE 15 MG TAB PO SCH (21:06)
[2016-03-11] MEDS: DULoxetine HCL 30 MG CAP PO SCH (21:06)
[2016-03-11] MEDS: MONTELUKAST SODIUM 10 MG TAB PO SCH (21:07)
[2016-03-12] MEDS ORDERED: cefTRIAXone SODIUM 1 GM VIAL ONE (01:39)
[2016-03-12] MEDS ORDERED: SODIUM CHL 0.9% 50ML MIN-BAG+ 50 ML IVPB ONE (01:39)
[2016-03-12] MEDS: cefTRIAXone SODIUM 1 GM in SODIUM CHL 0.9% 50ML MIN-BAG+ 50 ML IVPB SCH (01:42)
[2016-03-12] MEDS: ACETAMINOPHEN-CAFF-BUTALBITAL 1 EA TAB PO PRN (02:23)
[2016-03-12] MEDS ORDERED: SODIUM CHLORIDE 0.9% 250ML 250 ML ONE (04:22)
[2016-03-12] MEDS ORDERED: AZITHROMYCIN IV 500 MG VIAL IVPB ONE (04:22)
[2016-03-12] MEDS: methylPREDNISolone SODIUM SUC 125 MG/2 ML VIAL IV SCH ×2 (04:26→21:31)
[2016-03-12] MEDS: AZITHROMYCIN IV 500 MG in SODIUM CHLORIDE 0.9% 250ML 250 ML IVPB SCH (04:27)
[2016-03-12] MEDS ORDERED: LEVOTHYROXINE SODIUM 0.1 MG TAB ONE (06:01)
[2016-03-12] MEDS ORDERED: LEVOTHYROXINE SODIUM 0.075 MG TAB ONE (06:01)
[2016-03-12] MEDS: HYDROcodone 5MG/APAP 325MG 1 EA TAB PO PRN (06:25)
[2016-03-12] MEDS: PANTOPRAZOLE SODIUM IV 40 MG VIAL IV SCH (06:26)
[2016-03-12] MEDS: LEVOTHYROXINE SODIUM 0.1 MG, LEVOTHYROXINE SODIUM 0.075 MG PO SCH ×2 (06:27)
[2016-03-12] MEDS: SUCRALFATE 1 GM TAB PO SCH ×3 (06:29→16:48)
[2016-03-12] MEDS ORDERED: NON-FORMULARY MEDICATION 1 EA MIS (Levothyroxine Sodium [Levothyroxine Sodium] 175 MCG) PO SCH (07:00)
--- NOTE | 2016-03-12 07:17 | RAD ---
EXAM DESCRIPTION: XR CHEST 1 VIEW CLINICAL HISTORY: 70 y/o ,F, Pneumonia COMPARISON: March 10 IMPRESSION: There is vascular congestion. Lung volumes are small. Normal heart size. Slightly prominent mediastinum. Slightly improved lung bases. No lobar consolidation. No large effusion. Upright PA and lateral films would be useful when possible. Electronically signed by: Rocky Cuba MD 03/12/2016 07:15
[2016-03-12] MEDS: INSULIN LISPRO 100 UNITS/ML PEN SUBCU SCH ×7 (07:38→21:06)
[2016-03-12] MEDS: METOPROLOL TARTRATE 50 MG TAB PO SCH ×2 (07:39→16:49)
[2016-03-12] MEDS: POTASSIUM CHLORIDE 20 MEQ TAB PO SCH (07:39)
[2016-03-12] MEDS: IPRATROPIUM/ALBUTEROL 3 ML VIAL NEB SCH ×4 (08:37→20:51)
[2016-03-12] MEDS: CYANOCOBALAMIN 1,000 MCG TAB PO SCH (09:08)
[2016-03-12] MEDS: SITagliptin 50 MG TAB PO SCH (09:08)
[2016-03-12] MEDS: PREGABALIN 100 MG CAP PO SCH ×3 (09:08→21:31)
[2016-03-12] MEDS: BISACODYL TAB 5 MG TAB PO SCH (09:08)
[2016-03-12] MEDS: guaiFENesin ER TAB 600 MG TAB PO SCH ×2 (09:08→21:31)
[2016-03-12] MEDS: FOLIC ACID 1 MG TAB PO SCH (09:08)
[2016-03-12] MEDS: LOSARTAN POTASSIUM 25 MG TAB PO SCH ×2 (09:09→21:30)
[2016-03-12] MEDS: NYSTATIN SUSPENSION 5 ML UD MT SCH ×4 (09:09→21:31)
[2016-03-12] MEDS: ULORIC 40 MG PO SCH (09:09)
[2016-03-12] MEDS: MIRABEGRON 25 MG PO SCH (09:09)
[2016-03-12] MEDS: BACITRACIN 0.9 GM UD PCKT TOP SCH ×2 (09:21→20:12)
--- NOTE | 2016-03-12 10:27 | CT ---
Study: CT of the Head. Indication: SMALL with hx of multiple falls Technique: Axial CT images of the head were acquired without intravenous contrast. Comparison: None. Findings: On axial image 13 at the peripheral margin of the anterior left frontal region there is a 17 mm rounded focus abutting the calvarium. It is unclear if this reflects normal brain parenchyma or possibly an extra-axial mass lesion. No CT evidence of acute ischemia, acute hemorrhage, midline shift, or extra-axial fluid collection. Ventricles are normal in configuration without hydrocephalus. Paranasal sinuses are adequately aerated. Mastoid air cells are adequately aerated. Osseous structures and soft tissues are unremarkable. Impression: 1. Questionable left frontal extra-axial mass lesion without mass effect. Further characterization with dedicated MRI brain with and without intravenous contrast recommended. Electronically signed by: Itz Blevins MD 03/12/2016 10:26
[2016-03-12] MEDS: ENOXAPARIN SODIUM 40 MG/0.4 ML SYG SUBCU SCH (10:30)
[2016-03-12] MEDS: metOLazone 2.5 MG TAB PO SCH (11:56)
[2016-03-12] MEDS: FUROSEMIDE 40 MG TAB PO SCH (11:57)
--- NOTE | 2016-03-12 19:34 | PN ---
DATE: 03/12/16 SUPERVISING PHYSICIAN: Willard Butler M.D. SUBJECTIVE: The patient is sitting in the bedside chair today. She is quite tearful and anxious. She notes that she has had a migraine throughout the night and is worried that she is not getting any better. She remains afebrile. OBJECTIVE: VITAL SIGNS: T max 98.0, pulse 98, blood pressure 120/75, respirations 20, O2 sat showing 96% on nasal cannula at 2 liters. I's and O's are showing a negative balance of 3040 with 1210 in, 4250 out. Weight is 120.1 kg. CHEST: Breath sounds are equal bilaterally with some rhonchi heard towards the lateral posterior aspect of the left lower lobe but just very mild expiratory wheezing. HEART: Regular rate and rhythm. ABDOMEN: Obese but soft, non-tender. Positive bowel sounds. EXTREMITIES: Continued chronic lymphedema with no notable edema to the feet. NEUROLOGIC: She is alert and oriented times three. LABORATORY: White count now is 10.4 with hemoglobin 9.8, hematocrit 32.6, platelet count 207,000. Differential shows continued left shift with 3% bands. Chemistries show potassium 3.5, carbon dioxide 40, BUN 44, creatinine 1.53, glucoses have been 188 to 284, calcium 9.1. MICROBIOLOGY: MRSA surveillance culture shows no growth. Blood cultures remain negative after 24 hours. RADIOLOGY: Repeat chest x-ray today per radiology interpretation shows vascular congestion, lung volumes to be small, slightly prominent mediastinum but slightly improved lung bases with no lobar consolidations or large effusions. CT of the head without contrast shows a questionable left frontal extra-axial mass lesion without mass effect with recommendations per radiology for MRI with and without contrast for further characterization. There is no mention of any other acute findings, acute ischemic, acute hemorrhage or any extra-axial fluid collection. The patient did have an MRI of the brain on 05/12 and per that radiology interpretation showed a 2 cm smoothly marginated extra-axial nodule in the left parietal region with appearance that would favor meningioma. Please refer to that report for full details. ASSESSMENT: 1. Acute exacerbation of chronic obstructive pulmonary disease with a history of bronchiectasis having failed to respond to recent outpatient treatment plan with concerns for left lower lobe pneumonia likely community acquired with current sputum cultures pending at reference lab secondary to some mild hemoptysis. The patient has been started on Rocephin and Azithromycin. 2. Chronic renal insufficiency likely secondary to prerenal azotemia with the patient having high dosage of diuretics on a daily basis for treatment of lower extremity edema and chronic congestive heart failure with no notable exacerbation. 3. Leukocytosis likely secondary to left lower lobe pneumonia having improved after starting on parenteral antibiotics. 4. Chest pains on admission with now normalized troponins. No more reported chest pains likely secondary to some ischemia and mild anemia with congestive heart failure in the presence of acute exacerbation of chronic obstructive pulmonary disease. 5. Chronic congestive heart failure with a diastolic dysfunction grade 1 with an ejection fraction of 55% last documented February 2015 with a noted elevated BNP on admission. 6. Chronic lymphedema of the lower extremities, stable. 7. History of recent falls without any mention of loss of consciousness resulting in multiple bruises, laceration and a small hematoma to the left parietal area on the head and a laceration to the left lower extremity requiring sutures on 03/09/[address] of the head showing no acute findings. Please refer to CT report for full details. 8. CT findings of questionable left frontal extra-axial mass lesion without mass effects measuring 17 mm round focus per radiology interpretation which is being monitored by Dr. Butler with the previous MRI in April of 2015 showing similar findings on MRI measuring 2 cm. 9. Type 2 diabetes mellitus on p.o. medication requiring insulin during hospitalization secondary to corticosteroid administration. 10. History of depression and anxiety. 11. Chronic morbid obesity. 12. History of chronic psoriasis. 13. Chronic history of lower back pain. 14. History of previous MRSA infections with sputum culture and an MRSA surveillance culture in November 2015. 15. Oral Candidiasis thrush secondary to multiple antibiotic administrations within the last 90 days with the patient currently on Nystatin swish and swallow. 16. Vaginitis secondary to yeast infection secondary to multiple antibiotic administrations within the last 90 days having been given Diflucan. 17. Chronic obstipation secondary to chronic opioids showing improvement after given Milk of Magnesia. PLAN: The patient will continue with antibiotic therapy to include Azithromycin and Rocephin as she does clinically appear to be improving. Will continue with Solu-Medrol at a continued dose of 60 mg but every 12 hours for an additional 2 doses and reevaluate in the morning. Will continue with Milk of Magnesia p.r.n. as needed to help with constipation. Will continue with aggressive pulmonary hygiene, DuoNeb treatments q.i.d. and repeat a chest x-ray and laboratory studies in the morning. Until discharge, will continue to monitor the patient closely and treat appropriately. #[id number] [facility]
[2016-03-12] MEDS ORDERED: CHLORHEXIDINE GLUCONATE 4 % 15 ML UD TOP ONE (20:30)
[2016-03-12] MEDS: MONTELUKAST SODIUM 10 MG TAB PO SCH (21:30)
[2016-03-12] MEDS: MIRTAZAPINE 15 MG TAB PO SCH (21:30)
[2016-03-12] MEDS: DULoxetine HCL 30 MG CAP PO SCH (21:30)
[2016-03-12] MEDS: MAGNESIUM HYDROXIDE 30 ML UD PO SCH ×2 (21:31→22:23)
[2016-03-12] MEDS: SODIUM CHLORIDE 0.9% (FLUSH) 10 ML SYG IV PRN (21:32)
[2016-03-12] MEDS ORDERED: BACITRACIN 0.9 GM UD PCKT TOP SCH (22:00)
[2016-03-13] MEDS ORDERED: SODIUM CHL 0.9% 50ML MIN-BAG+ 50 ML IVPB ONE ×2 (02:11→23:27)
[2016-03-13] MEDS ORDERED: cefTRIAXone SODIUM 1 GM VIAL ONE ×2 (02:11→23:27)
[2016-03-13] MEDS ORDERED: SODIUM CHLORIDE 0.9% 250ML 250 ML ONE ×2 (02:15→23:27)
[2016-03-13] MEDS ORDERED: AZITHROMYCIN IV 500 MG VIAL IVPB ONE ×2 (02:16→23:27)
[2016-03-13] MEDS: cefTRIAXone SODIUM 1 GM in SODIUM CHL 0.9% 50ML MIN-BAG+ 50 ML IVPB SCH (02:19)
[2016-03-13] MEDS: SODIUM CHLORIDE 0.9% (FLUSH) 10 ML SYG IV PRN ×3 (02:20→08:51)
[2016-03-13] MEDS ORDERED: LEVOTHYROXINE SODIUM 0.075 MG TAB ONE (03:26)
[2016-03-13] MEDS ORDERED: PANTOPRAZOLE SODIUM TAB 40 MG PO ONE (03:26)
[2016-03-13] MEDS ORDERED: LEVOTHYROXINE SODIUM 0.1 MG TAB ONE (03:26)
[2016-03-13] MEDS: AZITHROMYCIN IV 500 MG in SODIUM CHLORIDE 0.9% 250ML 250 ML IVPB SCH (04:19)
[2016-03-13] MEDS: HYDROcodone 5MG/APAP 325MG 1 EA TAB PO PRN (05:46)
[2016-03-13] MEDS: LEVOTHYROXINE SODIUM 0.1 MG, LEVOTHYROXINE SODIUM 0.075 MG PO SCH ×2 (06:06)
[2016-03-13] MEDS: PANTOPRAZOLE SODIUM TAB 40 MG PO SCH (06:06)
[2016-03-13] MEDS: SUCRALFATE 1 GM TAB PO SCH ×3 (06:38→16:18)
[2016-03-13] MEDS: INSULIN LISPRO 100 UNITS/ML PEN SUBCU SCH ×7 (06:55→20:58)
--- NOTE | 2016-03-13 07:27 | RAD ---
EXAM: Two view chest. INDICATION: Chest pain. COMPARISON: Chest x-ray: 03/12/2016. FINDINGS: Cardiac silhouette: Unremarkable. [place]: There is mild peribronchial thickening Lobar consolidation: None.Pleural effusion: None.Pneumothorax: None.Other: There is elevation of the right hemidiaphragm. Bones: Unremarkable. Other: None. IMPRESSION: Peribronchial thickening
--- NOTE | 2016-03-13 07:45 | RAD ---
EXAM: Two view chest. INDICATION: Chest pain. COMPARISON: Chest x-ray: 03/12/2016. FINDINGS: Cardiac silhouette: Unremarkable. [place]: There is mild peribronchial thickening Lobar consolidation: None.Pleural effusion: None.Pneumothorax: None.Other: There is elevation of the right hemidiaphragm. Bones: Unremarkable. Other: None. IMPRESSION: Peribronchial thickening Electronically signed by: Elio Yin MD 03/13/2016 7:45 AM [employer]
[2016-03-13] MEDS: POTASSIUM CHLORIDE 20 MEQ TAB PO SCH (08:07)
[2016-03-13] MEDS: METOPROLOL TARTRATE 50 MG TAB PO SCH ×2 (08:09→16:40)
[2016-03-13] MEDS: PREGABALIN 100 MG CAP PO SCH ×3 (08:45→20:54)
[2016-03-13] MEDS: CYANOCOBALAMIN 1,000 MCG TAB PO SCH (08:45)
[2016-03-13] MEDS: SITagliptin 50 MG TAB PO SCH (08:45)
[2016-03-13] MEDS: FOLIC ACID 1 MG TAB PO SCH (08:45)
[2016-03-13] MEDS: BISACODYL TAB 5 MG TAB PO SCH (08:45)
[2016-03-13] MEDS: ULORIC 40 MG PO SCH (08:46)
[2016-03-13] MEDS: MIRABEGRON 25 MG PO SCH (08:46)
[2016-03-13] MEDS: guaiFENesin ER TAB 600 MG TAB PO SCH ×2 (08:46→20:54)
[2016-03-13] MEDS: NYSTATIN SUSPENSION 5 ML UD MT SCH ×4 (08:48→20:54)
[2016-03-13] MEDS: LOSARTAN POTASSIUM 25 MG TAB PO SCH ×2 (08:48→20:54)
[2016-03-13] MEDS: methylPREDNISolone SODIUM SUC 125 MG/2 ML VIAL IV SCH ×2 (08:48→20:55)
[2016-03-13] MEDS: BACITRACIN 0.9 GM UD PCKT TOP SCH ×2 (09:39→22:22)
[2016-03-13] MEDS: ENOXAPARIN SODIUM 40 MG/0.4 ML SYG SUBCU SCH (09:40)
[2016-03-13] MEDS: IPRATROPIUM/ALBUTEROL 3 ML VIAL NEB SCH ×5 (10:00→22:17)
[2016-03-13] MEDS: BIFIDOBACTERIUM INFANTIS 4 MG CAP PO SCH (11:00)
[2016-03-13] MEDS: metOLazone 2.5 MG TAB PO SCH (11:26)
[2016-03-13] MEDS: FUROSEMIDE 40 MG TAB PO SCH (11:26)
[2016-03-13] MEDS: ACETAMINOPHEN-CAFF-BUTALBITAL 1 EA TAB PO PRN (19:53)
--- NOTE | 2016-03-13 20:15 | PN ---
SUPERVISING PHYSICIAN: Melody Butler MD DATE: 03/13/16 SUBJECTIVE: The patient is doing well this morning. She did have an episode last night of choking after eating a cracker and had a panic attack, but this resolved after some calming down and giving some Ativan. This morning, she is doing fine, sitting in a chair coloring. OBJECTIVE: VITAL SIGNS: T-max 98.9. Pulse 94. Blood pressure 150/76. Respirations 20. O2 saturation 94% on nasal cannula at rest. I&Os show continued negative balance of 1604 with 2222 in and 3626 out. She has had 2 bowel movements. Weight is stable. CHEST: Lungs are much better aerated today with no rhonchi or wheezing noted. They still are diminished towards the left base, more noted on the posterior aspect. HEART: Regular rate and rhythm. ABDOMEN: Obese but soft, nontender. Positive bowel sounds. EXTREMITIES: No inguinal edema. NEUROLOGIC: She is alert and oriented times three. LABORATORY: White count 8.9, hemoglobin 9.2, hematocrit 31.1, platelet count 196,000. Differential continues to show a left shift. Chemistries show normal electrolytes with potassium 4.1, carbon dioxide 36, BUN 51, creatinine 1.61, glucoses still remain in the 200s from 197 to 277. Calcium 9.2, serum osmolality 306. MICROBIOLOGY: MRSA surveillance culture shows no growth. Blood cultures remain negative after 48 hours. RADIOLOGY: Repeat chest x-ray today per radiology interpretation shows peribronchial thickening with no lobar consolidation. ASSESSMENT: 1. Acute exacerbation of chronic obstructive pulmonary disease with a history of bronchiectasis having failed to respond to recent outpatient treatment plan with concerns for left lower lobe pneumonia likely community acquired with current antibiotic therapy to include azithromycin and Rocephin. The patient is showing good clinical improvement today. 2. Chronic renal insufficiency with continued prerenal azotemia secondary to high doses of diuretics on a daily basis for treatment of lower extremity edema with chronic congestive heart failure with no notable exacerbation at this time. 3. Leukocytosis likely secondary to left lower lobe pneumonia as well as high dose corticosteroids. 4. Chronic congestive heart failure with a diastolic dysfunction, grade 1, with an ejection fraction of 55% last documented February 2015 with a noted elevated BNP on admission. 5. Chronic lymphedema of the lower extremities, stable. 6. History of recent falls without any mention of loss of consciousness resulting in multiple bruises, laceration and a small hematoma to the left parietal area on the head and a laceration to the left lower extremity requiring sutures on 03/09/[address] of the head showing no acute findings. 7. CT findings of questionable left frontal extraaxial mass lesion without mass effect, measuring 17 mm in diameter with the previous MRI in April of 2015 showing similar findings and being current in the outpatient setting by Dr. Butler. 8. Type 2 diabetes mellitus on p.o. medication requiring insulin during hospitalization secondary to corticosteroid administration. 9. History of depression and anxiety. 10. Chronic morbid obesity. 11. History of chronic psoriasis. 12. Chronic history of lower back pain. 13. History of previous MRSA infections in the past with current MRSA surveillance culture negative. 14. Oral Candidiasis thrush secondary to multiple antibiotic in the last 90 days , currently on Nystatin swish and swallow. 15. Vaginitis on admission, secondary to yeast infection from multiple antibiotic administrations with the patient being given Diflucan on admission. 16. Chronic obstipation secondary to chronic opioids, showing improvement after given Milk of Magnesia. PLAN: The patient is doing much better today. She will benefit from additional 24 hours of IV antibiotics including azithromycin and Rocephin. We will continue to provide high dose Solu-Medrol and plan to taper accordingly. We will [facility] Until then, we will continue to monitor the patient closely and treat appropriately. #[id number] [facility]
[2016-03-13] MEDS: MIRTAZAPINE 15 MG TAB PO SCH (20:54)
[2016-03-13] MEDS: DULoxetine HCL 30 MG CAP PO SCH (20:54)
[2016-03-13] MEDS: MONTELUKAST SODIUM 10 MG TAB PO SCH (20:54)
[2016-03-13] MEDS: MAGNESIUM HYDROXIDE 30 ML UD PO SCH (20:54)
[2016-03-13] MEDS: RIZATRIPTAN BENZOATE 10 MG PO PRN (21:00)
[2016-03-14] MEDS: cefTRIAXone SODIUM 1 GM in SODIUM CHL 0.9% 50ML MIN-BAG+ 50 ML IVPB SCH (01:50)
[2016-03-14] MEDS: IV SET AND CAP CHANGE INJ INJ SCH (02:30)
[2016-03-14] MEDS: AZITHROMYCIN IV 500 MG in SODIUM CHLORIDE 0.9% 250ML 250 ML IVPB SCH (03:41)
[2016-03-14] MEDS: SODIUM CHLORIDE 0.9% (FLUSH) 10 ML SYG IV PRN ×2 (04:48→21:20)
[2016-03-14] MEDS ORDERED: LEVOTHYROXINE SODIUM 0.1 MG TAB ONE ×2 (05:14→06:16)
[2016-03-14] MEDS ORDERED: LEVOTHYROXINE SODIUM 0.075 MG TAB ONE (05:14)
[2016-03-14] MEDS: LEVOTHYROXINE SODIUM 0.1 MG, LEVOTHYROXINE SODIUM 0.075 MG PO SCH ×2 (06:14)
[2016-03-14] MEDS: PANTOPRAZOLE SODIUM TAB 40 MG PO SCH (06:16)
[2016-03-14] MEDS: SUCRALFATE 1 GM TAB PO SCH ×3 (06:16→16:54)
[2016-03-14] MEDS: INSULIN LISPRO 100 UNITS/ML PEN SUBCU SCH ×7 (07:45→21:15)
[2016-03-14] MEDS: POTASSIUM CHLORIDE 20 MEQ TAB PO SCH (07:46)
[2016-03-14] MEDS: METOPROLOL TARTRATE 50 MG TAB PO SCH ×2 (07:47→16:54)
[2016-03-14] MEDS: ULORIC 40 MG PO SCH (09:13)
[2016-03-14] MEDS: MIRABEGRON 25 MG PO SCH (09:13)
[2016-03-14] MEDS: BIFIDOBACTERIUM INFANTIS 4 MG CAP PO SCH (09:15)
[2016-03-14] MEDS: BISACODYL TAB 5 MG TAB PO SCH (09:15)
[2016-03-14] MEDS: PREGABALIN 100 MG CAP PO SCH ×3 (09:15→21:13)
[2016-03-14] MEDS: IPRATROPIUM/ALBUTEROL 3 ML VIAL NEB SCH ×6 (09:15→20:50)
[2016-03-14] MEDS: NYSTATIN SUSPENSION 5 ML UD MT SCH ×4 (09:15→21:12)
[2016-03-14] MEDS: guaiFENesin ER TAB 600 MG TAB PO SCH ×2 (09:15→21:14)
[2016-03-14] MEDS: LOSARTAN POTASSIUM 25 MG TAB PO SCH ×2 (09:16→21:15)
[2016-03-14] MEDS: CYANOCOBALAMIN 1,000 MCG TAB PO SCH (09:16)
[2016-03-14] MEDS: SITagliptin 50 MG TAB PO SCH (09:16)
[2016-03-14] MEDS: FOLIC ACID 1 MG TAB PO SCH (09:16)
[2016-03-14] MEDS: methylPREDNISolone SODIUM SUC 125 MG/2 ML VIAL IV SCH ×2 (09:21→21:12)
[2016-03-14] MEDS: AZITHROMYCIN 250 MG TAB PO SCH (09:21)
[2016-03-14] MEDS: ENOXAPARIN SODIUM 40 MG/0.4 ML SYG SUBCU SCH (10:31)
[2016-03-14] MEDS: BACITRACIN 0.9 GM UD PCKT TOP SCH ×2 (10:31→22:12)
[2016-03-14] MEDS: metOLazone 2.5 MG TAB PO SCH (11:34)
--- NOTE | 2016-03-14 11:43 | RAD ---
EXAM DESCRIPTION: XR CHEST 2 VIEWS CLINICAL HISTORY: pneumonia COMPARISON: None Available. TECHNIQUE: PA/lateral FINDINGS: Query left retrocardiac opacity which is stable when compared to the prior study. The bronchovascular bundle thickening is also noted and unchanged. Heart size is stable. No pneumothorax. Chronic blunting of the right costophrenic angle. IMPRESSION: All findings are unchanged when compared to March 13, 2016. Electronically signed by: Manuel Chung MD 03/14/2016 11:41
[2016-03-14] MEDS: FUROSEMIDE 40 MG TAB PO SCH (12:14)
--- NOTE | 2016-03-14 17:54 | PN ---
DATE: 03/14/16 SUPERVISING PHYSICIAN: José Miguel Palacios M.D. SUBJECTIVE: The patient is sitting up in her bed. She is doing much better today. She has had several panic attacks as well as having 2 episodes of shortness of breath but at this time she is sitting up in her bed and she is watching television. OBJECTIVE: VITAL SIGNS: She is afebrile, pulse rate 104, blood pressure 131/79 , respiratory rate 20, O2 sat 89% on 2 liters nasal cannula. Intake and output for the last 24 hours is negative 1,480 mL. She has diuresed about 5 liters since admission. GENERAL: This is a 70 year-old obese female patient who is sitting up in her hospital bed. She is mildly tachypneic but in no acute distress. RESPIRATORY: Diminished bilaterally but essentially clear to auscultation. HEART: Regular rate and rhythm. ABDOMEN: Round, soft, nondistended. Bowel sounds are positive. EXTREMITIES: No edema noted. There is a dressing to her left lateral lower leg that is dry and intact. NEUROLOGIC : She is awake, alert and oriented times three. SKIN: She has scattered ecchymotic areas all over bilateral arms and legs as well as her lower left chin area. LABORATORY: WBCs have normalized but she continues to have a left shift. Hemoglobin 9.7, hemoglobin 32.4. Sodium 144, potassium 3.9, chloride 94, CO2 40 , BUN 53, creatinine 1.48, glucose 257. Chest x-ray shows unchanged compared to 03/13/16. All other labs and films have been reviewed via the EMR. ASSESSMENT: 1. Acute exacerbation of chronic obstructive pulmonary disease with a history of bronchiectasis having failed to respond to recent outpatient treatment with concerns for left lower lobe pneumonia community versus healthcare associated. She is currently on Azithromycin and Rocephin. 2. Chronic renal insufficiency with continued prerenal azotemia. 3. Left lower lobe pneumonia, improving. 4. Leukocytosis most likely secondary to left lower lobe pneumonia as well as high dose corticosteroids. 5. Congestive heart failure with diastolic dysfunction and an ejection fraction of 55% last documented on February 2015 with noted elevated BNP on admission that is improving with approximately 5 liters diuresed since admission. 6. Chronic lymphedema of the lower extremities that is stable. 7. History of recent falls without any mention of loss of consciousness resulting in multiple bruises, lacerations and a small hematoma to the left parietal area on the head and a laceration to the left lower extremity requiring sutures on 03/09/[address] of the head showing no acute findings. 8. Type 2 diabetes mellitus. 9. History of depression and anxiety. 10. Chronic morbid obesity. 11. CT findings of questionable left frontal extra-axial mass lesion without mass effect currently being followed in the outpatient setting by Dr. Butler. 12. History of chronic psoriasis. 13. Chronic history of lower back pain. 14. History of previous Methicillin resistant Staphylococcus aureus infections with current MRSA surveillance culture negative. 15. Oral Candidiasis/thrush. 16. Vaginitis on admission that has improved. 17. Chronic constipation. PLAN: We will continue with present supportive care. I have changed her Azithromycin to oral medication. I will repeat her chest x-ray and lab in the morning. She should be able to be discharged to [facility] tomorrow. Dr. Palacios is the collaborating physician and available for consultation. #[id number] [facility]
[2016-03-14] MEDS: DULoxetine HCL 30 MG CAP PO SCH (21:12)
[2016-03-14] MEDS: MONTELUKAST SODIUM 10 MG TAB PO SCH (21:13)
[2016-03-14] MEDS: MAGNESIUM HYDROXIDE 30 ML UD PO SCH (21:14)
[2016-03-14] MEDS: MIRTAZAPINE 15 MG TAB PO SCH (21:14)
[2016-03-14] MEDS: HYDROcodone 5MG/APAP 325MG 1 EA TAB PO PRN (22:21)
[2016-03-15] MEDS ORDERED: SODIUM CHL 0.9% 50ML MIN-BAG+ 50 ML IVPB ONE (02:00)
[2016-03-15] MEDS ORDERED: cefTRIAXone SODIUM 1 GM VIAL ONE (02:00)
[2016-03-15] MEDS: cefTRIAXone SODIUM 1 GM in SODIUM CHL 0.9% 50ML MIN-BAG+ 50 ML IVPB SCH (02:03)
[2016-03-15] MEDS: SODIUM CHLORIDE 0.9% (FLUSH) 10 ML SYG IV PRN (02:08)
[2016-03-15] MEDS ORDERED: LEVOTHYROXINE SODIUM 0.075 MG TAB ONE (05:07)
[2016-03-15] MEDS ORDERED: LEVOTHYROXINE SODIUM 0.1 MG TAB ONE (05:07)
[2016-03-15] MEDS: PANTOPRAZOLE SODIUM TAB 40 MG PO SCH (06:03)
[2016-03-15] MEDS: SUCRALFATE 1 GM TAB PO SCH ×2 (06:03→15:50)
[2016-03-15] MEDS: LEVOTHYROXINE SODIUM 0.1 MG, LEVOTHYROXINE SODIUM 0.075 MG PO SCH ×2 (06:04)
[2016-03-15] MEDS: RIZATRIPTAN BENZOATE 10 MG PO PRN (06:05)
[2016-03-15] MEDS: INSULIN LISPRO 100 UNITS/ML PEN SUBCU SCH ×4 (08:11→11:30)
[2016-03-15] MEDS: IPRATROPIUM/ALBUTEROL 3 ML VIAL NEB SCH ×3 (08:31→17:25)
--- NOTE | 2016-03-15 09:01 | RAD ---
EXAM DESCRIPTION: XR CHEST 2 VIEWS CLINICAL HISTORY: pna chest pain, shortness of Breath COMPARISON: March 14, 2016 FINDINGS: Two-view chest x-ray shows enlargement of the cardiac silhouette without pulmonary vascular congestion. Lungs are mildly hypo aerated. Interstitial thickening in the perihilar region is again seen with mild increased interstitial markings in the lingula of the left upper lobe and left lower lobe similar to previous exam. No obvious pleural effusion. Mild disc degenerative changes of the spine. IMPRESSION: Poor inspiratory effort with persistent prominent bronchovascular markings in the perihilar region. Possible infiltrate or atelectasis in the lingula of the left upper lobe and left lower lobe. Electronically signed by: Nehemias Cervantes MD 03/15/2016 08:59
[2016-03-15] MEDS: METOPROLOL TARTRATE 50 MG TAB PO SCH (09:04)
[2016-03-15] MEDS: BISACODYL TAB 5 MG TAB PO SCH (09:06)
[2016-03-15] MEDS: POTASSIUM CHLORIDE 20 MEQ TAB PO SCH (09:06)
[2016-03-15] MEDS: FOLIC ACID 1 MG TAB PO SCH (09:06)
[2016-03-15] MEDS: BIFIDOBACTERIUM INFANTIS 4 MG CAP PO SCH (09:06)
[2016-03-15] MEDS: SITagliptin 50 MG TAB PO SCH (09:07)
[2016-03-15] MEDS: PREGABALIN 100 MG CAP PO SCH ×2 (09:07→15:25)
[2016-03-15] MEDS: LOSARTAN POTASSIUM 25 MG TAB PO SCH (09:07)
[2016-03-15] MEDS: MIRABEGRON 25 MG PO SCH (09:14)
[2016-03-15] MEDS: ENOXAPARIN SODIUM 40 MG/0.4 ML SYG SUBCU SCH (09:36)
[2016-03-15] MEDS: guaiFENesin ER TAB 600 MG TAB PO SCH (09:36)
[2016-03-15] MEDS: AZITHROMYCIN 250 MG TAB PO SCH (09:36)
[2016-03-15] MEDS: CYANOCOBALAMIN 1,000 MCG TAB PO SCH (09:36)
[2016-03-15] MEDS: ULORIC 40 MG PO SCH (09:37)
[2016-03-15] MEDS: BACITRACIN 0.9 GM UD PCKT TOP SCH (09:44)
[2016-03-15 10:30] VITALS: TEMP 97.9
--- NOTE | 2016-03-15 13:45 | DS ---
SUPERVISING PHYSICIAN: José Miguel Palacios MD DISCHARGE DIAGNOSIS: 1. Acute exacerbation of chronic obstructive pulmonary disease with a history of bronchiectasis having failed to respond to recent outpatient treatment with concerns for left lower lobe pneumonia, community versus health care associated. She was on azithromycin and Rocephin in the hospital and she has been converted to p.o. azithromycin. 2. Chronic renal insufficiency with continued prerenal azotemia. 3. Left lower lobe pneumonia, improved. 4. Leukocytosis, most likely secondary to left lower lobe pneumonia as well as high dose corticosteroids. 5. Congestive heart failure with diastolic dysfunction and ejection fraction of 55% last documented in February of 2015 with a noted elevated BNP on admission that is improving. She has had 5 liters diuresed since admission. 6. Chronic lymphedema of the lower extremities, stable. 7. History of recent falls with no mention of loss of consciousness, resulting in multiple bruises, lacerations and a small hematoma to the left parietal area on the head and a laceration to the left lower extremity requiring sutures on 03/09/[address] of the head showing no acute findings. 8. Type 2 diabetes mellitus. 9. History of depression and anxiety. 10. Chronic morbid obesity. 11. CT findings of questionable left frontal extraaxial mass lesions without mass effect, currently being followed in the outpatient setting by Dr. Butler. 12. History of chronic psoriasis. 13. History of chronic lower back pain. 14. History of previous methicillin-resistant Staphylococcus aureus infections with current MRSA surveillance being negative. 15. Oral candidiasis/thrush. 16. Vaginitis on admission, improved. 17. Chronic constipation. HISTORY OF PRESENT ILLNESS: This is a 70-year-old, female patient who is a resident of [facility]. On the date of admission, she was seen in the Emergency Room for worsening shortness of breath with a productive cough over the last several weeks. She had had to increase the use of her bronchodilator as well as needing higher dosing of O2. She had been seen in the Emergency Room several times over the previous two weeks prior to admission. The shortness of breath worsened the day before admission and finally developed into left sharp chest pain. The chest pain had subsided by the time she arrived to the Emergency Room. She has also had multiple falls and shortness of breath over the last few weeks. On 03/08/16, she was diagnosed with bronchitis and given a Z-Alphonse. On the date of admission in the Emergency Room, she has an elevated white count of 15.9 with a left shift with 79% neutrophils and 3% bands. Her lactic acid was 3.3 and she had a troponin that was elevated at 0.07 and BNP 221. Oxygen saturations in the Emergency Room initially were 82% on room air. She was tachypneic with shallow respiratory effort. Her respiratory rate was 25 breaths per minute. She received several breathing treatments and her O2 saturations improved to 86% on 2 liters nasal cannula. By the time she was admitted to the Floor, her O2 saturation had improved to 96%. It is to be noted that she had laceration to her left lateral lower leg with stitches that had been placed due to a fall at [facility]. HOSPITAL COURSE: During her stay, her white count normalized to 9.4, although her neutrophils remained slightly elevated. Hemoglobin and hematocrit are stable around 9.3 and 30.5. Her metabolic panel resumed to her normal baseline including her creatinine at 1.36. Today, her BNP is 114. With continued aggressive pulmonary toilet and antibiotic therapy as well as steroids and breathing treatments, she has progressed to the point where she can be discharged back to [facility]. Her chest x-ray today shows a questionable infiltrate in the lingula of the left upper lobe and the left lower lobe. Clinically, she is much improved. She has no complaints of shortness of breath and she will have close followup with Dr. Butler next week. DISCHARGE PLAN: The patient will be discharged back to [facility]. She will resume her previous medications. She has had a five day course of azithromycin as well as Rocephin. She gets immunoglobulin therapy once weekly at [facility] and she has missed the last two treatments. [facility] has called me and told me that they we will reschedule treatment this week to tomorrow and the patient was informed about her treatment tomorrow. Her activity will be per physical therapy. She will have an appointment with Dr. Butler on 03/21/16 at 11 AM. She needs a repeat chest x-ray at that time at [facility]. She is to return to the Emergency Room or call Dr. Butler's office for any complications or problems. Dr. Palacios is the collaborating physician and available for consultation. DISCHARGE MEDICATIONS: 1. Clonazepam. 2. Singulair. 3. Zanaflex. 4. Hydrocodone. 5. Folic acid. 6. Furosemide. 7. Metolazone. 8. Fish oil. 9. Levothyroxine. 10. Mirtazapine. 11. Vitamin E. 12. Potassium chloride. 13. Metformin. 14. Albuterol sulfate nebulizers. 15. Benzonatate. 16. Ipratropium. 17. Diphenhydramine. 18. Cranberry plus vitamin C. 19. Myrbetriq. 20. Rizatriptan. 21. Sonata. 22. Triamcinolone. 23. Nitroglycerin. 24. Acetaminophen. 25. Uloric acid. 26. Pantoprazole. 27. Prednisone. 28. Carafate. 29. Proventil nebulizers. 30. Lyrica. 31. Bumex. 32. Guaifenesin. 33. Miconazole nitrate vaginal suppositories. 34. Januvia. 35. Vitamin D3. 36. Cyanocobalamin. 37. Acidophilus. 38. Metoprolol tartrate. 39. Losartan. 40. Nystatin suspension. 41. Cymbalta. #[id number] [facility]
[2016-03-15 14:16] VITALS: BP 160/80; O2SAT 99
[2016-03-15] MEDS: NYSTATIN SUSPENSION 5 ML UD MT SCH ×2 (15:17→15:24)
[2016-03-15] MEDS: FUROSEMIDE 40 MG TAB PO SCH (15:25)
[2016-03-15] MEDS: metOLazone 2.5 MG TAB PO SCH (15:25)
[2016-03-15] MEDS: methylPREDNISolone SODIUM SUC 125 MG/2 ML VIAL IV SCH (15:49)
== END 2016-03-15 17:10 | DRG 190 ==
LOC: ER 19:28 → OBSVTOIN 03-11 02:59 → MS 03-11 02:59
PROVIDERS: ADMIT Nurse Practitioner Family; ATTEND Nurse Practitioner Acute Care
DX: J44.0 Chronic obstructive pulmonary disease with (acute) lower respiratory infection (principal); J18.9 Pneumonia, unspecified organism; I50.33 Acute on chronic diastolic (congestive) heart failure; I13.0 Hypertensive heart and chronic kidney disease with heart failure and stage 1 through stage 4 chronic kidney disease, or unspecified chronic kidney disease; B37.0 Candidal stomatitis; Z68.43 Body mass index [BMI] 50.0-59.9, adult; J44.1 Chronic obstructive pulmonary disease with (acute) exacerbation; N18.3 Chronic kidney disease, stage 3 (moderate); R09.02 Hypoxemia; B37.3 Candidiasis of vulva and vagina; K59.03 Drug induced constipation; F41.0 Panic disorder [episodic paroxysmal anxiety]; I89.0 Lymphedema, not elsewhere classified; K31.9 Disease of stomach and duodenum, unspecified; T40.2X5A Adverse effect of other opioids, initial encounter; S81.812D Laceration without foreign body, left lower leg, subsequent encounter; S63.649D Sprain of metacarpophalangeal joint of unspecified thumb, subsequent encounter; F41.9 Anxiety disorder, unspecified; F32.9 Major depressive disorder, single episode, unspecified; M06.9 Rheumatoid arthritis, unspecified; E66.01 Morbid (severe) obesity due to excess calories; E78.5 Hyperlipidemia, unspecified; K21.9 Gastro-esophageal reflux disease without esophagitis; I25.10 Atherosclerotic heart disease of native coronary artery without angina pectoris; E11.9 Type 2 diabetes mellitus without complications; Y92.9 Unspecified place or not applicable; Z66 Do not resuscitate; Z79.84 Long term (current) use of oral hypoglycemic drugs; Z86.14 Personal history of Methicillin resistant Staphylococcus aureus infection; Z88.5 Allergy status to narcotic agent

== ENCOUNTER → 2016-04-13 | Outpatient (CLI) | payer MEDICARE | END | disposition home or self-care (01) | LOC: EDSTATUS 13:50 → GT 18:24 → GMA 18:24 → LAB.O 18:24 | PROVIDERS: ATTEND Nurse Practitioner Family | DX: S81.802A Unspecified open wound, left lower leg, initial encounter (principal) ==

== ENCOUNTER 2016-04-20 11:37 | Inpatient (IN) | payer MEDICARE ==
--- NOTE | 2016-04-20 13:06 | RAD ---
EXAM DESCRIPTION: Chest,2 Views CLINICAL HISTORY: 70 yearsFemale, sob COMPARISON: March 15, 2016. IMPRESSION: Low lung volumes. Prominence of the bilateral génesis noted. Poor visualization of bilateral medial hemidiaphragms. This has worsened when compared to the prior study. These findings may be compatible with worsening pulmonary edema or pneumonia. Electronically signed by: Manuel Chung MD 04/20/2016 1:05 PM STAFFING PROGRAM MANAGER
--- NOTE | 2016-04-20 14:05 | CT ---
EXAM DESCRIPTION: Chest w/o Contrast CLINICAL HISTORY: 70 years Female, hilar changes, sob COMPARISON: Chest radiograph obtained earlier same day TECHNIQUE: Chest CT was performed without IV contrast FINDINGS: Coronary artery calcifications are noted. There is no thoracic aortic aneurysm. Sensitivity for detection of adenopathy is limited by lack of IV contrast, but no mediastinal or hilar adenopathy is seen. No pleural or pericardial effusion. The central airways are clear. There is a small irregular area of abnormal density posteriorly in the right lower lobe which could represent either atelectasis or developing pneumonia. No additional airspace consolidation. Visualized portions of the upper abdomen are unremarkable except for malrotation of the right kidney, doubtful clinical significance. There is no suspicious bone lesion. IMPRESSION: Atelectasis versus developing pneumonia involving a portion of the right lower lobe. Coronary artery disease. Electronically signed by: Rigoberto Bonilla MD 04/20/2016 2:05 PM [employer]
[2016-04-20] MEDS ORDERED: POTASSIUM CHLORIDE ELIXIR 20 MEQ/15 ML UD PO ONE (14:13)
[2016-04-20] MEDS ORDERED: CEFEPIME 1 GM in SODIUM CHLORIDE 0.9% 50ML 50 ML IVPB ONE (14:14)
[2016-04-20] MEDS ORDERED: SODIUM CHLORIDE 0.9% 1000ML 500 ML IVS ONE (14:14)
[2016-04-20] MEDS ORDERED: AZITHROMYCIN IV 500 MG in SODIUM CHLORIDE 0.9% 250ML 250 ML IVPB ONE (14:14)
--- NOTE | 2016-04-20 14:43 | ED.PDOC ---
History of Present Illness - General Chief Complaint: Respiratory Problem Stated Complaint: shortness of breath Time Seen by Provider: 04/20/16 11:51 Source: patient Exam Limitations: no limitations - History of Present Illness Initial Comments: the patient is a 70-year-old female presenting to the urgency room secondary to worsening shortness of breath over the last few days. Mildly productive sputum. Mild chest pain with cough only. No syncopal or near syncope. She thinks that she has had fevers. No vomiting. She does have some chronic constipation issues. She is feeling generally weak and having hard time getting around. Timing/Duration: 1 week Severity: moderate Improving Factors: nothing Worsening Factors: nothing Associated Symptoms: cough, malaise, shortness of breath Allergies/Adverse Reactions: Allergies Codeine Allergy (Verified 04/20/16 12:10) Home Medications: Ambulatory Orders Clonazepam 0.5 mg PO Q6H PRN 12/05/12 Montelukast Sodium 10 mg PO HS #0 12/08/12 tiZANidine [Zanaflex] 4 mg PO TID PRN 10/17/13 HYDROcodone 5MG/APAP 325MG [Clyde 5/325] 1 ea PO Q4H PRN 03/02/14 Folic Acid 1 mg PO DAILY 03/11/14 Furosemide 80 mg PO NOON 03/11/14 Levothyroxine Sodium 175 mcg PO ACBK 03/11/14 Mirtazapine 30 mg PO BEDTIME 03/11/14 Hardy-3 Fatty Acids [Fish Oil 1200 mg] 1,200 mg PO BEDTIME 03/11/14 metOLazone [Zaroxolyn] 2.5 mg PO DAILY 03/11/14 Metformin HCl 500 mg PO DAILYBK 08/23/14 Potassium Chloride [Micro-K] 40 meq PO DAILY 08/23/14 Vitamin E [E-400] 1,000 unit PO DAILY 08/23/14 Acetaminophen [Tylenol] 1 - 2 mg PO Q4H PRN 09/12/15 Albuterol Sulfate Nebs [Proventil Nebs] 2.5 mg INH Q4H PRN 09/12/15 Benzonatate 200 mg PO TID PRN 09/12/15 Cranberry-Vitamin C-Vitamin E [Cranberry Plus Vitamin C 140-100-3 mg-mg-Unit] 1 cap PO DAILY 09/12/15 Diphenhydramine HCl 1 - 2 mg PO PRN PRN 09/12/15 Ipratropium Brom 0.03% Nasal [Atrovent Nasal Golden 0.03%] 1 spray BNAS Q4H PRN 09/12/15 Mirabegron [Myrbetriq] 25 mg PO DAILY 09/12/15 Nitroglycerin 0.4 mg Tab [Nitrostat] 0.4 ea SL .Q5M PRN 09/12/15 Pantoprazole Sodium [Protonix] 40 mg PO ACBK 09/12/15 Potassium Chloride [Potassium Chloride ER] 30 meq PO 1200,2100 09/12/15 Prednisone 5 mg PO TID 09/12/15 Rizatriptan Benzoate 10 mg PO DAILY PRN 09/12/15 Sucralfate Tab [Carafate Tab] 1 gm PO .TIDAC 09/12/15 Triamcinolone Acetonide (Nasal [Nasacort Allergy 24Hr Chi] 2 spray NA DAILY PRN 09/12/15 Uloric 40 mg PO DAILY 09/12/15 Zaleplon [Sonata] 20 mg PO BEDTIME PRN 09/12/15 Albuterol Sulfate Nebs [Proventil Nebs] 2.5 mg INH QID #30 vial 09/15/15 Bumetanide [Bumex] 0.5 mg PO DAILY PRN 11/28/15 Furosemide [Lasix Tab] 120 mg PO DAILY 11/28/15 Pregabalin [Lyrica] 100 mg PO TID 11/28/15 Guaifenesin [Mucinex] 600 mg PO BID 01/14/16 Cholecalciferol [Vitamin D3] 1,000 unit PO DAILY 03/08/16 Cyanocobalamin [B12] 1,000 mcg PO DAILY 03/08/16 Lactobacillus [Acidophilus] 2 cap PO BID 03/08/16 Losartan Potassium 25 mg PO BID 03/08/16 Metoprolol Tartrate 25 mg PO BID 03/08/16 SITagliptin [Januvia] 50 mg PO DAILY 03/08/16 Duloxetine HCl [Cymbalta] 60 mg PO BEDTIME 03/11/16 Nystatin Suspension 10 ml PO TID 03/11/16 Review of Systems - Review of Systems Constitutional: States: fever, malaise EENTM: States: no symptoms reported Respiratory: States: cough, short of breath Cardiology: States: edema - chronic Gastrointestinal/Abdominal: States: no symptoms reported Genitourinary: States: no symptoms reported Musculoskeletal: States: no symptoms reported - chronic back problems Skin: States: no symptoms reported Neurological: States: no symptoms reported Endocrine: States: no symptoms reported All other Systems: No Change from Baseline Past Medical History (General) - Patient Medical History Hx Seizures: No Hx Stroke: No Hx Dementia: No Hx Asthma: Yes Hx of COPD: Yes - oxygen dependent Hx Cardiac Disorders: Yes - CAD Hx Congestive Heart Failure: Yes Hx Pacemaker: No Hx Hypertension: Yes Hx Thyroid Disease: Yes - hypothyroidism Hx Diabetes: Yes Hx Gastroesophageal Reflux: Yes Hx Renal Disease: No Hx Cancer: No Hx of HIV: No Hx Hepatitis C: No Hx MRSA: Yes MRSA Source:: Wound - Vaccination History Hx Tetanus, Diphtheria Vaccination: No Hx Influenza Vaccination: Yes Hx Pneumococcal Vaccination: Yes - Social History Hx Tobacco Use: No Hx Chewing Tobacco Use: No Hx Alcohol Use: No Hx Substance Use: No Hx Substance Use Treatment: No Hx Depression: Yes Hx Physical Abuse: No Hx Emotional Abuse: No Hx Suspected Abuse: No - Activities of Daily Living Senior Care/Assisted Living (if applicable):: [address] - Female History Patient : No Family Medical History - Family History Father Living Status: Age at (years of age): 92 Cause of : AR, kidney failure Hx Family Hypertension: Yes Hx Family Diabetes: Yes Hx Family Cancer: Yes - leukemia-mom;kidney-dad Mother Family History: Unknown Living Status: Age at (years of age): 82 Cause of : leukemia and chf Hx Family Asthma: No Hx Family Congestive Heart Failure: Yes Hx Family Hypertension: Yes Hx Family Stroke: Yes Hx Cardiac Disease: Yes Hx Family Diabetes: No Hx Family Cancer: No Physical Exam - Physical Exam General Appearance: Alert, Comfortable, No apparent distress Eye Exam: bilateral normal Ears, Nose, Throat: normal ENT inspection, normal pharynx Neck: non-tender, full range of motion, supple, normal inspection Respiratory: chest non-tender, no respiratory distress, no accessory muscle use , other - right lower lobe rales Cardiovascular/Chest: normal peripheral pulses, other - regular rate Peripheral Pulses: radial,right: 2+, radial,left: 2+, dorsalis pedis,right: 2+, dorsalis pedis,left: 2+ Gastrointestinal/Abdominal: non tender, soft - morbidly obese Rectal Exam: deferred Back Exam: normal inspection, no CVA tenderness Extremity: normal range of motion, no calf tenderness, normal capillary refill Neurologic: alert, oriented x 3 - anxious Skin Exam: normal color, other - 2+ edema to bilateral lower extremities. Bruising to bilateral lower extremities. Comments: Vital Signs - 24 hr 04/20/16 12:04 Temperature 97.5 F L Pulse Rate [ 84 Right Radial] Respiratory 36 H Rate Blood Pressure 120/81 [Right Arm] O2 Sat by Pulse 89 L Oximetry Progress - Progress Progress: 04/20/16 14:46 the patient is a 70-year-old female with a multitude of long-standing medical problems presenting with what appears to be the start of the right lower lobe pneumonia. She does have some mild desaturations down into the high 80s periodically. She states she does not have obstructive sleep apnea though with her body habitus I do find it hard to believe. She does need to be monitored. Blood cultures have been done. The patient is being started on cefepime and azithromycin. The patient also has significant hypokalemia and B is being given oral potassium currently. This will be followed. She does also have some mild hyponatremia hypochloremia likely due to diuretic use. Easily be corrected. She does have some acute renal failure likely due to the diuretic requirement. This also needs to be followed given the antibiotics required. The patient is being admitted for problems as listed above. She does have a very high chance of rapid deterioration with the detrimental results if sent home. - Results/Orders Results/Orders: 04/20/16 12:10 Telemetry .CONTINUOUS 04/20/16 14:14 Azithromycin IV [Zithromax IV] 500 mg Sodium Chloride 0.9% 250Ml [NS 250ml] 250 ml IVPB ONCE INFLUENZA A & B ANTIGEN Stat 04/20/16 14:22 UA [URINALYSIS] Stat 04/20/16 14:37 BLOOD CULTURE Stat Laboratory Results - last 24 hr 04/20/16 12:25 WBC 16.2 H RBC 4.80 Hgb 10.5 L Hct 33.6 L MCV 70.0 L MCH 21.8 L MCHC 31.3 L RDW 20.5 H Plt Count 226 MPV 10.6 H Absolute Neuts (auto) 13.10 H Absolute Lymphs (auto) 1.30 Absolute Monos (auto) 1.40 H Absolute Eos (auto) 0.40 Absolute Basos (auto) 0.10 Neutrophils % 80.4 H Lymphocytes % 7.8 L Monocytes % 8.7 Eosinophils % 2.3 Basophils % 0.8 PT 10.5 INR 0.930 PTT (SP) 24.1 L Sodium 131 L Potassium 2.5 L Chloride 83 L Carbon Dioxide 34 H Anion Gap 16.5 BUN 73 H Creatinine 1.86 H BUN/Creatinine Ratio 39.2 H Random Glucose 144 H Serum Osmolality 286.7 Calcium 9.2 Total Bilirubin 0.5 AST 23 ALT 35 Alkaline Phosphatase 75 Creatine Kinase 22 L CK-MB (CK-2) 4.8 H* CK-MB (CK-2) % Not Reportable Troponin I 0.05 B-Natriuretic Peptide 61.2 Serum Total Protein 7.2 Albumin 3.5 Globulin 3.7 H Albumin/Globulin Ratio 0.9 L chest x-ray shows concern for perihilar infiltrates. CT scan of the chest shows a right lower lobe infiltrate. EKG shows normal sinus rhythm with PVCs. Significant motion artifact is present making it somewhat difficult to interpret. I see no definite ST segment changes concerning for immediate ischemia. There is a borderline long QT syndrome Departure - Departure Clinical Impression: Hypokalemia, Chronic hyponatremia Pneumonia Qualifiers: Pneumonia type: due to unspecified organism Laterality: right Lung location: lower lobe of lung Qualifier Code: (J18.9) Pneumonia, unspecified organism Acute renal failure Qualifiers: Acute renal failure type: unspecified Qualifier Code: (N17.9) Acute kidney failure, unspecified Disposition: Admit Patient Departure Forms: ED Discharge - Pt. Copy, Patient Portal Self Enrollment Home Medications: Ambulatory Orders Clonazepam 0.5 mg PO Q6H PRN 12/05/12 Montelukast Sodium 10 mg PO HS #0 12/08/12 tiZANidine [Zanaflex] 4 mg PO TID PRN 10/17/13 HYDROcodone 5MG/APAP 325MG [Clyde 5/325] 1 ea PO Q4H PRN 03/02/14 Folic Acid 1 mg PO DAILY 03/11/14 Furosemide 80 mg PO NOON 03/11/14 Levothyroxine Sodium 175 mcg PO ACBK 03/11/14 Mirtazapine 30 mg PO BEDTIME 03/11/14 Hardy-3 Fatty Acids [Fish Oil 1200 mg] 1,200 mg PO BEDTIME 03/11/14 metOLazone [Zaroxolyn] 2.5 mg PO DAILY 03/11/14 Metformin HCl 500 mg PO DAILYBK 08/23/14 Potassium Chloride [Micro-K] 40 meq PO DAILY 08/23/14 Vitamin E [E-400] 1,000 unit PO DAILY 08/23/14 Acetaminophen [Tylenol] 1 - 2 mg PO Q4H PRN 09/12/15 Albuterol Sulfate Nebs [Proventil Nebs] 2.5 mg INH Q4H PRN 09/12/15 Benzonatate 200 mg PO TID PRN 09/12/15 Cranberry-Vitamin C-Vitamin E [Cranberry Plus Vitamin C 140-100-3 mg-mg-Unit] 1 cap PO DAILY 09/12/15 Diphenhydramine HCl 1 - 2 mg PO PRN PRN 09/12/15 Ipratropium Brom 0.03% Nasal [Atrovent Nasal Golden 0.03%] 1 spray BNAS Q4H PRN 09/12/15 Mirabegron [Myrbetriq] 25 mg PO DAILY 09/12/15 Nitroglycerin 0.4 mg Tab [Nitrostat] 0.4 ea SL .Q5M PRN 09/12/15 Pantoprazole Sodium [Protonix] 40 mg PO ACBK 09/12/15 Potassium Chloride [Potassium Chloride ER] 30 meq PO 1200,2100 09/12/15 Prednisone 5 mg PO TID 09/12/15 Rizatriptan Benzoate 10 mg PO DAILY PRN 09/12/15 Sucralfate Tab [Carafate Tab] 1 gm PO .TIDAC 09/12/15 Triamcinolone Acetonide (Nasal [Nasacort Allergy 24Hr Chi] 2 spray NA DAILY PRN 09/12/15 Uloric 40 mg PO DAILY 09/12/15 Zaleplon [Sonata] 20 mg PO BEDTIME PRN 09/12/15 Albuterol Sulfate Nebs [Proventil Nebs] 2.5 mg INH QID #30 vial 09/15/15 Bumetanide [Bumex] 0.5 mg PO DAILY PRN 11/28/15 Furosemide [Lasix Tab] 120 mg PO DAILY 11/28/15 Pregabalin [Lyrica] 100 mg PO TID 11/28/15 Guaifenesin [Mucinex] 600 mg PO BID 01/14/16 Cholecalciferol [Vitamin D3] 1,000 unit PO DAILY 03/08/16 Cyanocobalamin [B12] 1,000 mcg PO DAILY 03/08/16 Lactobacillus [Acidophilus] 2 cap PO BID 03/08/16 Losartan Potassium 25 mg PO BID 03/08/16 Metoprolol Tartrate 25 mg PO BID 03/08/16 SITagliptin [Januvia] 50 mg PO DAILY 03/08/16 Duloxetine HCl [Cymbalta] 60 mg PO BEDTIME 03/11/16 Nystatin Suspension 10 ml PO TID 03/11/16 Decision To Admit - Decistion To Admit Decision to Admit Reason: Medical Nature Decision to Admit Date: 04/20/16 Decision to Admit Time: 14:49
--- NOTE | 2016-04-20 15:54 | HP ---
SUPERVISING PHYSICIAN: José Miguel Palacios MD CHIEF COMPLAINT: Shortness of breath. HISTORY OF PRESENT ILLNESS: This is a 70 year-old female patient who lives at [facility]. She has an extensive history of chronic obstructive pulmonary disease with hypoxia and she requires 02 chronically. She was actually playing dominoes today and her oxygen saturation decreased and she states she has had increased shortness of breath for over a week with some congestion. She also said she has some difficulty swallowing and her throat was sore. She was brought to the Emergency Room. Per CT she was found to have the start of a right lower lobe pneumonia and she has some desaturations into the high 80s. She also has a wound on her lateral left leg, she has been seeing Dr. Kathia Butler , her primary care physician for this. She was also found to have hypokalemia with a potassium of 2.5 and received some potassium in the Emergency Room. She was also given azithromycin and Cefepime. She is also on quite high doses of diuretics. She has some chronic renal insufficiency and her baseline creatinine is about 1.5, in the Emergency Room it was 1.86. I was called for admission to the hospital. PAST MEDICAL HISTORY: 1. Chronic renal insufficiency, stage 3. 2. Chronic hypoxia, on 02 chronically. 3. History of myocarditis in 2008. 4. History of congestive heart failure with diastolic dysfunction and ejection fraction of 55% last documented in February 2015. 5. Chronic lymphedema, especially to lower extremities for 40 to 50 years.. 6. Chronic migraines. 7. History of gamekeeper's thumb.. 8. Depression and anxiety. 9. Hypertension. 10. Rheumatoid arthritis. 11. Morbid obesity. 12. Hyperlipidemia. 13. Gastroesophageal reflux disease. 14. Coronary artery disease. 15. Psoriasis. 16. Type 2 diabetes on oral therapy. 17. Chronic obstructive pulmonary disease. 18. History of chronic respiratory failure with hypoxia. 19. History of MRSA infections with MRSA surveillance cultures 2016 and sputum culture in 2013 showing positive. PAST SURGICAL HISTORY: 1. Appendectomy. 2. Exploratory laparotomy. 3. Caesarean section x2. 4. Hysterectomy. 5. Left carpal tunnel release. 6. Tonsillectomy. CURRENT MEDICATIONS: As per the EMR and awaiting verification. ALLERGIES: CODEINE. FAMILY HISTORY: Positive for high blood pressure, coronary artery disease, diabetes, leukemia, heart failure and brain tumor. SOCIAL HISTORY: The patient denies any smoking, ETOH or illicit drug use. She lives at [facility]. She has 2 children. She is . REVIEW OF SYSTEMS: GENERAL: Denies fever or chills, complains of fatigue. HEENT: Complains of a sore throat. Denies sinus symptoms, ear pain or vision changes. RESPIRATORY: Complains of coughing and congestion with some wheezing as well as dyspnea times one week. CARDIAC Denies chest pain, palpitations or tachycardia.:. ABDOMEN: Denies abdominal pain, nausea, vomiting, diarrhea. GENITOURINARY: Denies hematuria, dysuria or polyuria.. SKIN: She complains of a wound to the left lateral lower leg. NEUROLOGICAL: Denies dizziness, headaches or seizures. PHYSICAL EXAMINATION: VITAL SIGNS: She is afebrile. Heart rate 98, blood pressure 134/83, 02 saturation 89% on 2 liters nasal cannula. GENERAL: This is a 70 year-old obese female who is lying in her hospital bed. HEENT: Normocephalic and atraumatic. Pupils are equal and reactive. Oropharynx is clear. Oral mucous membranes are moist. NECK: Supple without masses. There is no jugular venous distention. CHEST: Bilateral rhonchi throughout. She is diminished at the bases. CARDIOVASCULAR: Regular rate and rhythm. ABDOMEN: Large, rounded and obese. Bowel sounds are positive. Non-tender. EXTREMITIES: Bilateral pedal pulses are palpable at +2. SKIN: Her bilateral lower extremities are ecchymotic. There is edema noted from the ankles to the knees that is a normal finding for her. NEUROLOGIC: She is awake, alert, and oriented x3. LABORATORY: WBC 16.2, hemoglobin 10.5, hematocrit 33.6. Sodium 131, potassium 2.5, chloride 83, C02 is 34, BUN 73, creatinine 1.86, blood glucose 259. Urine is within normal limits. Chest x-ray shows low lung volumes, prominence of bilateral génesis noted. Poor visualization of bilateral medial hemidiaphragms. This has worsened when compared to prior studies. These findings may be compatible with worsening pulmonary edema or pneumonia. Chest CT shows atelectasis versus developing pneumonia involving a portion of the right lower lobe and coronary artery disease. All other labs and films have been reviewed via the EMR. ASSESSMENT: 1. Right lower lobe pneumonia, most likely healthcare acquired a she lives in [facility]. 2. Hypokalemia. 3. Hyponatremia. 4. Chronic obstructive pulmonary disease with multiple exacerbations and presently on chronic 02. 5. Leukocytosis that is most likely related to #1. 6. Chronic congestive heart failure with diastolic dysfunction and ejection fraction of 55% in February of 2015. 7. Chronic lymphedema of the lower extremities. 8. Wound to the left lateral lower leg. 9. Type 2 diabetes mellitus. 10. Chronic morbid obesity. 11. History of MRSA infections in the past. PLAN: We will admit the patient to the hospital. I will continue her Cefepime and her azithromycin. I have also ordered lab for in the morning. We will restart her home medications, also have given her breathing treatments, started sliding scale insulin protocol. Will need wound care to that left lower extremity. We will continue to monitor the patient closely and followup as needed. Dr. Palacios is the collaborating physician available for consultation. #[id number] [facility]
[2016-04-20] MEDS ORDERED: POTASSIUM CHLORIDE ELIXIR 20 MEQ/15 ML UD ONE (16:22)
[2016-04-20] MEDS ORDERED: SODIUM CHLORIDE 0.9% 1000ML 1,000 ML ONE (16:33)
[2016-04-20] MEDS ORDERED: CEFEPIME 2 GM VIAL IVPB ONE (16:35)
[2016-04-20] MEDS ORDERED: SODIUM CHLORIDE 0.9% 50ML 50 ML ONE (16:35)
[2016-04-20] MEDS ORDERED: AZITHROMYCIN IV 500 MG VIAL IVPB ONE (17:01)
[2016-04-20] MEDS ORDERED: SODIUM CHLORIDE 0.9% 250ML 250 ML ONE (17:01)
[2016-04-20] MEDS ORDERED: GLUCAGON INJ 1 MG VIAL SUBCU PRN ×2 (18:11→23:27)
[2016-04-20] MEDS ORDERED: DEXTROSE 50% 25 GM/50 ML SYG IV PRN ×2 (18:11→23:27)
[2016-04-20] MEDS ORDERED: ZALEPLON PO PRN (18:20)
[2016-04-20] MEDS ORDERED: tiZANidine 4 MG TAB PO PRN (18:20)
[2016-04-20] MEDS: IPRATROPIUM/ALBUTEROL 3 ML VIAL INH SCH (20:46)
[2016-04-20] MEDS ORDERED: NON-FORMULARY MEDICATION 1 EA MIS (Duloxetine Hcl [Cymbalta] 60 MG) PO SCH (21:00)
[2016-04-20] MEDS ORDERED: POTASSIUM CHLORIDE 30 MEQ PO SCH (21:00)
[2016-04-20] MEDS ORDERED: DULoxetine HCL 30 MG CAP PO ONE (21:07)
[2016-04-20] MEDS ORDERED: predniSONE 10 MG TAB ONE (21:07)
[2016-04-20] MEDS ORDERED: POTASSIUM CHLORIDE 10 MEQ TAB PO ONE ×2 (21:08)
[2016-04-20] MEDS ORDERED: POTASSIUM CHLORIDE 20 MEQ TAB PO ONE (21:08)
[2016-04-20] MEDS ORDERED: POTASSIUM CHLORIDE 20 MEQ TAB ONE (21:08)
[2016-04-20] MEDS: PREGABALIN 100 MG CAP PO SCH (21:26)
[2016-04-20] MEDS: MIRTAZAPINE 15 MG TAB PO SCH (21:27)
[2016-04-20] MEDS: guaiFENesin ER TAB 600 MG TAB PO SCH (21:28)
[2016-04-20] MEDS: SUCRALFATE 1 GM TAB PO SCH (21:28)
[2016-04-20] MEDS: MONTELUKAST SODIUM 10 MG TAB PO SCH (21:28)
[2016-04-20] MEDS: LOSARTAN POTASSIUM 25 MG TAB PO SCH (21:29)
[2016-04-20] MEDS: predniSONE 5 MG TAB PO SCH (21:30)
[2016-04-20] MEDS: IV SET AND CAP CHANGE INJ INJ SCH (21:35)
[2016-04-20] MEDS: INSULIN LISPRO 100 UNITS/ML PEN SUBCU SCH (22:07)
[2016-04-20] MEDS: NYSTATIN SUSPENSION 5 ML UD MT SCH (22:10)
[2016-04-21] MEDS ORDERED: SODIUM CHL 0.9% 50ML MIN-BAG+ 50 ML IVPB ONE ×2 (04:59→18:35)
[2016-04-21] MEDS ORDERED: CEFEPIME 2 GM VIAL IVPB ONE ×2 (05:00→18:36)
[2016-04-21] MEDS ORDERED: LEVOTHYROXINE SODIUM 0.075 MG TAB ONE (05:00)
[2016-04-21] MEDS ORDERED: LEVOTHYROXINE SODIUM 0.1 MG TAB ONE (05:00)
[2016-04-21] MEDS: CEFEPIME 2 GM in SODIUM CHL 0.9% 50ML MIN-BAG+ 50 ML IVPB SCH ×2 (05:58→18:57)
[2016-04-21] MEDS: LEVOTHYROXINE SODIUM 0.1 MG, LEVOTHYROXINE SODIUM 0.075 MG PO SCH ×2 (05:59)
[2016-04-21] MEDS: SODIUM CHLORIDE 0.9% (FLUSH) 10 ML SYG IV PRN ×3 (06:00→21:20)
[2016-04-21] MEDS ORDERED: POTASSIUM CHLORIDE 20 MEQ TAB ONE (06:04)
[2016-04-21] MEDS: SUCRALFATE 1 GM TAB PO SCH ×4 (06:44→21:22)
[2016-04-21] MEDS ORDERED: INSULIN LISPRO 100 UNITS/ML PEN SUBCU SCH (07:00)
[2016-04-21] MEDS: IPRATROPIUM/ALBUTEROL 3 ML VIAL INH SCH (07:40)
[2016-04-21] MEDS: METOPROLOL TARTRATE 50 MG TAB PO SCH ×2 (08:26→17:16)
[2016-04-21] MEDS: INSULIN LISPRO 100 UNITS/ML PEN SUBCU SCH ×4 (08:26→21:25)
[2016-04-21] MEDS: IPRATROPIUM/ALBUTEROL 3 ML VIAL NEB SCH ×3 (11:45→20:21)
[2016-04-21] MEDS: guaiFENesin ER TAB 600 MG TAB PO SCH ×2 (11:48→21:23)
[2016-04-21] MEDS: NYSTATIN SUSPENSION 5 ML UD MT SCH ×3 (11:48→21:21)
[2016-04-21] MEDS: FUROSEMIDE 40 MG TAB PO SCH ×2 (11:48→12:13)
[2016-04-21] MEDS: PREGABALIN 100 MG CAP PO SCH ×3 (11:48→21:22)
[2016-04-21] MEDS: predniSONE 5 MG TAB PO SCH ×3 (11:48→21:23)
[2016-04-21] MEDS: SITagliptin 50 MG TAB PO SCH (11:48)
[2016-04-21] MEDS: LOSARTAN POTASSIUM 25 MG TAB PO SCH ×2 (11:48→21:22)
[2016-04-21] MEDS: POTASSIUM CHLORIDE 20 MEQ TAB PO SCH (11:49)
[2016-04-21] MEDS: MIRABEGRON 25 MG PO SCH ×2 (12:09→12:20)
[2016-04-21] MEDS: ULORIC 40 MG PO SCH ×2 (12:09→12:21)
[2016-04-21] MEDS: POTASSIUM CHLORIDE 10 MEQ TAB PO SCH ×2 (12:16→21:23)
[2016-04-21] MEDS ORDERED: POTASSIUM CHLORIDE 20 MEQ TAB PO ONE (13:46)
[2016-04-21] MEDS ORDERED: CEFEPIME 2 GM in SODIUM CHL 0.9% 50ML MIN-BAG+ 50 ML IVPB ONE (18:00)
[2016-04-21] MEDS: HYDROcodone 5MG/APAP 325MG 1 EA TAB PO PRN ×2 (18:38→18:52)
[2016-04-21] MEDS ORDERED: ENOXAPARIN SODIUM 30 MG/0.3 ML SYG SUBCU SCH (19:00)
--- NOTE | 2016-04-21 19:00 | PCM.CORE ---
Physician DVT/VTE - Nurse DVT Assessment & Total Each Risk Factor Represents 2 Points: Age 60-74 Each Risk Factor is 1 Point: Serious Lung disease (pnemonia <1month, COPD, emphysema,etc) DVT Assessment Score: 3 - 5 or more Very High Risk Treatments: Early Ambulation *, Sequential Compression Device Pharmacological: Enoxaparin 30mg SQ BID
[2016-04-21] MEDS ORDERED: methylPREDNISolone SODIUM SUC 125 MG/2 ML VIAL IV ONE (19:27)
[2016-04-21] MEDS ORDERED: levoFLOXacin 500 MG TAB PO SCH (19:30)
[2016-04-21] MEDS ORDERED: CEFEPIME 2 GM in SODIUM CHL 0.9% 50ML MIN-BAG+ 50 ML IVPB SCH ×3 (19:30→20:37)
[2016-04-21] MEDS ORDERED: AZITHROMYCIN IV 500 MG in SODIUM CHLORIDE 0.9% 250ML 250 ML IVPB SCH (20:00)
[2016-04-21] MEDS ORDERED: SODIUM CHLORIDE 0.9% 250ML 250 ML ONE (20:48)
[2016-04-21] MEDS ORDERED: AZITHROMYCIN IV 500 MG VIAL IVPB ONE (20:51)
[2016-04-21] MEDS: AZITHROMYCIN IV 500 MG in SODIUM CHLORIDE 0.9% 250ML 250 ML IVPB SCH (21:20)
[2016-04-21] MEDS: DULoxetine HCL 30 MG CAP PO SCH (21:22)
[2016-04-21] MEDS: MONTELUKAST SODIUM 10 MG TAB PO SCH (21:22)
[2016-04-21] MEDS: BENZONATATE PERLES 100 MG CAP PO SCH (21:22)
[2016-04-21] MEDS: MIRTAZAPINE 15 MG TAB PO SCH (21:23)
[2016-04-21] MEDS: ZOLPIDEM TARTRATE 10 MG TAB PO PRN (21:27)
--- NOTE | 2016-04-21 22:01 | PN ---
DATE: 04/21/16 SUPERVISING PHYSICIAN: José Miguel Palacios M.D. SUBJECTIVE: The patient is lying in bed. She is watching a program on her telephone. She complains of shortness of breath, just feeling poorly all over, coughing and weakness. She denies any chest pain, nausea or vomiting, diarrhea or constipation. OBJECTIVE: VITAL SIGNS: She is afebrile, heart rate 91, blood pressure 130/65, respiratory rate 25. O2 sats are 96% on 2 liters nasal cannula. GENERAL: This is a 70 year-old obese female who is lying in her hospital bed. RESPIRATORY: Expiratory wheezing noted in the apices, otherwise coarse breath sounds throughout. She is somewhat diminished at the bases. CARDIAC: Regular rate and rhythm. ABDOMEN: Rounded. It is soft, nondistended. Bowel sounds are positive. NEUROLOGIC: She is awake, alert and oriented times three. She has the wound to the left lower lateral leg. It is approximately 6 to 7 cm in diameter. There is no erythema or edema. It has a small amount of drainage, but it is mostly dry. LABORATORY: Sodium 135, potassium 3, chloride 90, carbon dioxide 32, BUN 72, creatinine 1.68. Hemoglobin 9.2, hematocrit 30.5. WBCs have improved from 16.2 yesterday to 12.2 today. Preliminary blood cultures show no growth after 24 hours. All other labs and films have been reviewed via the EMR. ASSESSMENT: 1. Right lower lobe pneumonia most likely healthcare acquired as she lives at [facility]. She is frequently admitted for exacerbation of chronic obstructive pulmonary disease and pneumonia. 2. Hypokalemia. 3. Hyponatremia. 4. Chronic obstructive pulmonary disease with multiple exacerbations and presently on chronic steroid dosing daily as well as chronic O2. 5. Leukocytosis that is most likely related to number 1 and is improving. 6. Chronic congestive heart failure with diastolic dysfunction and an ejection fraction of 55% in February of 2015. 7. Chronic lymphedema to the lower extremities. 8. Wound to the left lateral lower leg. 9. Type 2 diabetes mellitus. 10. Chronic morbid obesity. 11. History of Methicillin resistant Staphylococcus aureus infections in the past. PLAN: We will continue present antibiotic therapy of Cefepime and Azithromycin. For now, I have ordered wound care with the wound spray and Telfa pads with Kerlix. We may consider consulting Dr. Helder as he was the one that got her previous wound on that leg healed up. I have given her an extra dose of potassium today. I have given her an extra dose of IV steroids today and will do a tapered down dose tomorrow as she has wheezing that is worsened since yesterday. She has the catheter because she complains of so much weakness and it will need to be discontinued in the next day or so. I will order an ambulation study for tomorrow. I will also order a Physical Therapy consultation for Saturday. We will continue to monitor the patient closely and followup as needed. Dr. Palacios is the collaborating physician and available for consultation. #[id number] [facility]ITAL[facility]
[2016-04-22] MEDS: ALBUTEROL SULFATE 2.5 MG/3 ML VIAL NEB PRN (00:48)
[2016-04-22] MEDS ORDERED: SODIUM CHL 0.9% 50ML MIN-BAG+ 50 ML IVPB ONE ×2 (05:09→17:05)
[2016-04-22] MEDS ORDERED: LEVOTHYROXINE SODIUM 0.075 MG TAB ONE (05:10)
[2016-04-22] MEDS ORDERED: LEVOTHYROXINE SODIUM 0.1 MG TAB ONE (05:10)
[2016-04-22] MEDS ORDERED: CEFEPIME 2 GM VIAL IVPB ONE ×2 (05:10→17:05)
[2016-04-22] MEDS ORDERED: methylPREDNISolone SODIUM SUC 40 MG/ML VIAL IV SCH (06:00)
[2016-04-22] MEDS: SODIUM CHLORIDE 0.9% (FLUSH) 10 ML SYG IV PRN ×4 (06:18→20:50)
[2016-04-22] MEDS: CEFEPIME 2 GM in SODIUM CHL 0.9% 50ML MIN-BAG+ 50 ML IVPB SCH ×2 (06:19→17:40)
[2016-04-22] MEDS: LEVOTHYROXINE SODIUM 0.1 MG, LEVOTHYROXINE SODIUM 0.075 MG PO SCH ×2 (06:20)
[2016-04-22] MEDS: SUCRALFATE 1 GM TAB PO SCH ×4 (06:21→20:56)
[2016-04-22] MEDS: IPRATROPIUM/ALBUTEROL 3 ML VIAL NEB SCH ×4 (08:18→20:24)
[2016-04-22] MEDS: INSULIN LISPRO 100 UNITS/ML PEN SUBCU SCH ×4 (08:25→21:30)
[2016-04-22] MEDS: POTASSIUM CHLORIDE 20 MEQ TAB PO SCH (08:30)
[2016-04-22] MEDS: PREGABALIN 100 MG CAP PO SCH ×3 (08:30→20:55)
[2016-04-22] MEDS: predniSONE 5 MG TAB PO SCH ×3 (08:30→20:55)
[2016-04-22] MEDS: FUROSEMIDE 40 MG TAB PO SCH ×2 (08:30→12:17)
[2016-04-22] MEDS: LOSARTAN POTASSIUM 25 MG TAB PO SCH ×2 (08:30→20:55)
[2016-04-22] MEDS: SITagliptin 50 MG TAB PO SCH (08:30)
[2016-04-22] MEDS: BENZONATATE PERLES 100 MG CAP PO SCH ×3 (08:30→20:55)
[2016-04-22] MEDS: METOPROLOL TARTRATE 50 MG TAB PO SCH ×2 (08:30→16:48)
[2016-04-22] MEDS: guaiFENesin ER TAB 600 MG TAB PO SCH ×2 (08:30→20:55)
[2016-04-22] MEDS: ULORIC 40 MG PO SCH (08:31)
[2016-04-22] MEDS: MIRABEGRON 25 MG PO SCH (08:31)
[2016-04-22] MEDS: NYSTATIN SUSPENSION 5 ML UD MT SCH ×3 (09:00→20:53)
--- NOTE | 2016-04-22 10:25 | RAD ---
PROCEDURE: XR CHEST 1 VIEW HISTORY: pna COMPARISON: 04/20/2016 TECHNIQUE: Single projection of the chest was done. FINDINGS: There is presence of stable left basilar infiltrate/atelectasis . There are no pneumothoraces or pleural effusions. Stable elevation of the right hemidiaphragm is noted. The pulmonary vascularity is normal. The cardiomediastinal contour is stable . IMPRESSION: There is presence of stable left basilar infiltrate/atelectasis . Location of Interpretation: Teleradiology Electronically signed by: Elio Hernandez MD 04/22/2016 10:25 AM RENTAL REPRESENTATIVE
[2016-04-22] MEDS: methylPREDNISolone SODIUM SUC 40 MG/ML VIAL IV SCH ×2 (12:17→20:51)
[2016-04-22] MEDS: POTASSIUM CHLORIDE 10 MEQ TAB PO SCH ×2 (12:18→20:53)
[2016-04-22] MEDS ORDERED: SODIUM CHLORIDE 0.9% 250ML 250 ML ONE (19:33)
[2016-04-22] MEDS ORDERED: ENOXAPARIN SODIUM 30 MG/0.3 ML SYG SUBCU ONE (19:35)
[2016-04-22] MEDS ORDERED: AZITHROMYCIN IV 500 MG VIAL IVPB ONE (19:37)
[2016-04-22] MEDS: KCL 40MEQ/NS 1,000 ML IVS PRN (19:55)
[2016-04-22] MEDS: HYDROcodone 5MG/APAP 325MG 1 EA TAB PO PRN (19:56)
--- NOTE | 2016-04-22 20:27 | PN ---
DATE: 04/22/16 SUBJECTIVE: The patient is lying in the bed with head elevated. She is noticeably slightly dyspneic but is able to speak in sentences. Still complaining of fairly significant prominence of edema of the lower extremities. Past history does reveal that the patient's significant edema of her legs started after having a baby several decades ago. Whether increased diuresis is going to be able to help this swelling is doubtful, but it is contributing somewhat to a decreased renal function. OBJECTIVE: Afebrile, pulse 94, blood pressure 136/84, pulse oximetry 94% nasal cannula. LUNGS: Have diminished breath sounds. HEART: Tones are regular. ABDOMEN: Very obese with slightly diminished bowel tones noted. She does have a healing laceration with sutures removed lateral left knee with dressing change to continue and wound care. LABORATORY: Potassium is up to 3.6, CO2 of 32, BUN 72 while creatinine is 1.68 and BUN/creatinine ratio is up to 43. Glucose 125, albumin 2.9. Blood cultures are negative. Repeat chest x-ray today does show persistence of the left lower lobe infiltrate with atelectasis. The patient up to this point has refused SCDs in an attempt to prevent DVT formation. We are encouraging her to try the SCDs again at this time since many years ago she had an SCD that rubbed a hole in her skin. This will be observed for closely. Unable to find adequate EMA hose for compression dressing to her lower extremities. ASSESSMENT: 1. Acute right lower lobe infiltrative pneumonia most likely healthcare acquired with the patient residing at [facility]. 2. Chronic obstructive pulmonary disease with an acute exacerbation presently on chronic steroid dosings with chronic O2 supplementation and pulmonary hygiene. 3. Hypokalemia requiring supplementation. 4. Hyponatremia, improved. 5. Leukocytosis, improved. 6. Chronic congestive heart failure with diastolic dysfunction and an ejection fraction of 55% in February 2015. 7. Chronic lymphedema to the lower extremities. 8. Wound healing after sutures placed left lateral lower leg with wound care continuing. 9. Diabetes mellitus type 2. 10. Chronic morbid obesity. 11. History of Methicillin resistant Staphylococcus aureus infections in the past. PLAN: The patient will continue on Cefepime and the Azithromycin. Close followup of the pneumonia is necessary. Continue wound care to the lateral left leg. Try SCDs and observe to make sure skin stays intact. Add potassium and some fluid intake because of a possible prerenal azotemia with elevated BUN/ creatinine ratio. Reevaluate in the morning. Anticipate return to [facility] when stable. #[id number] MTDD
[2016-04-22] MEDS: AZITHROMYCIN IV 500 MG in SODIUM CHLORIDE 0.9% 250ML 250 ML IVPB SCH (20:51)
[2016-04-22] MEDS: ZOLPIDEM TARTRATE 10 MG TAB PO PRN (20:55)
[2016-04-22] MEDS: MONTELUKAST SODIUM 10 MG TAB PO SCH (20:55)
[2016-04-22] MEDS: DULoxetine HCL 30 MG CAP PO SCH (20:56)
[2016-04-22] MEDS: MIRTAZAPINE 15 MG TAB PO SCH (20:56)
[2016-04-22] MEDS ORDERED: ENOXAPARIN SODIUM 30 MG/0.3 ML SYG SUBCU SCH (21:00)
[2016-04-23] MEDS ORDERED: SODIUM CHL 0.9% 50ML MIN-BAG+ 50 ML IVPB ONE ×2 (05:28→19:02)
[2016-04-23] MEDS ORDERED: LEVOTHYROXINE SODIUM 0.1 MG TAB ONE (05:29)
[2016-04-23] MEDS ORDERED: CEFEPIME 2 GM VIAL IVPB ONE ×2 (05:29→19:02)
[2016-04-23] MEDS ORDERED: LEVOTHYROXINE SODIUM 0.075 MG TAB ONE (05:29)
[2016-04-23] MEDS: CEFEPIME 2 GM in SODIUM CHL 0.9% 50ML MIN-BAG+ 50 ML IVPB SCH ×2 (05:40→19:15)
[2016-04-23] MEDS: LEVOTHYROXINE SODIUM 0.1 MG, LEVOTHYROXINE SODIUM 0.075 MG PO SCH ×2 (06:20)
[2016-04-23] MEDS: SUCRALFATE 1 GM TAB PO SCH ×4 (06:20→21:00)
[2016-04-23] MEDS: INSULIN LISPRO 100 UNITS/ML PEN SUBCU SCH ×4 (08:09→21:25)
[2016-04-23] MEDS: METOPROLOL TARTRATE 50 MG TAB PO SCH ×2 (08:12→19:15)
[2016-04-23] MEDS: IPRATROPIUM/ALBUTEROL 3 ML VIAL NEB SCH ×3 (09:11→20:28)
[2016-04-23] MEDS: PREGABALIN 100 MG CAP PO SCH ×3 (10:31→21:00)
[2016-04-23] MEDS: methylPREDNISolone SODIUM SUC 40 MG/ML VIAL IV SCH (10:31)
[2016-04-23] MEDS: FUROSEMIDE 40 MG TAB PO SCH ×2 (10:32→17:12)
[2016-04-23] MEDS: LOSARTAN POTASSIUM 25 MG TAB PO SCH ×2 (10:32→21:00)
[2016-04-23] MEDS: predniSONE 5 MG TAB PO SCH ×3 (10:32→21:00)
[2016-04-23] MEDS: BENZONATATE PERLES 100 MG CAP PO SCH ×3 (10:32→21:00)
[2016-04-23] MEDS: POTASSIUM CHLORIDE 20 MEQ TAB PO SCH (10:32)
[2016-04-23] MEDS: MIRABEGRON 25 MG PO SCH (10:33)
[2016-04-23] MEDS: SITagliptin 50 MG TAB PO SCH (10:33)
[2016-04-23] MEDS: ULORIC 40 MG PO SCH (10:33)
[2016-04-23] MEDS: guaiFENesin ER TAB 600 MG TAB PO SCH ×2 (10:33→21:00)
[2016-04-23] MEDS: NYSTATIN SUSPENSION 5 ML UD MT SCH ×3 (10:34→21:02)
[2016-04-23] MEDS: BIFIDOBACTERIUM INFANTIS 4 MG CAP PO SCH (10:35)
[2016-04-23] MEDS ORDERED: SILVER SULFADIAZINE 1 % 25 GM TUBE TOP ONE ×2 (10:58→16:53)
[2016-04-23] MEDS ORDERED: CHLORHEXIDINE GLUCONATE 4 % 15 ML UD TOP ONE (10:59)
--- NOTE | 2016-04-23 11:15 | PN ---
DATE: 04/23/16 SUBJECTIVE: The patient was somewhat poorly responsive with difficulty awakening earlier today. She is on Ambien 10 mg, which is a large dose. When she awoke, she was quite anxious and had marked shaking of the upper extremities. Upon questioning, she was able to answer questions fairly appropriately, having somewhat of a stressful interaction with her son, who is also concerned about her tremors. As we talked with her, her tremors tended to lessen. No significant shortness of breath at this time according to the patient. OBJECTIVE: VITAL SIGNS: Afebrile. Pulse 81. Blood pressure 131/75. Pulse oximetry 99% on 2 liters and will try to titrate her oxygen down to a more physiologic level. LUNGS: Diminished breath sounds. HEART: Regular. ABDOMEN : Soft, though somewhat touchy and very obese. Will with very large legs for many years. She does have the wound on the lateral aspect of the left leg which dressing change are to continue. Dr. Pendleton will be to see later today to assist with ongoing wound care even after she returns to [facility]. ASSESSMENT: 1. Acute right lower lobe infiltrative pneumonia, most likely health care acquired with the patient residing in [facility], now on her third day of treatment with cefepime and azithromycin. 2. Chronic obstructive pulmonary disease with an acute exacerbation, currently on chronic steroid dosing with chronic oxygen supplementation and pulmonary hygiene. 3. Hypokalemia, requiring supplementation. 4. Hyponatremia, improved. 5. Leukocytosis, improved. 6. Chronic congestive heart failure with diastolic dysfunction and an ejection fraction of 55% in February of 2015. 7. Chronic lymphedema to the lower extremities. 8. Wound healing after sutures placed with a localized infection with wound care team approach to ongoing healing, especially with poor health of the skin with the associated lymphedema. 9. Diabetes mellitus, type 2. 10. Chronic morbid obesity. 11. History of methicillin-resistant Staphylococcus aureus infections in the past. PLAN: We will await wound care advice. Physical therapy to evaluate for possible rehab potential for increased activity and avoid falls. Reevaluation important. #[id number] [facility]
--- NOTE | 2016-04-23 11:27 | CONS ---
DATE OF CONSULTATION: 04/23/16 HISTORY OF PRESENT ILLNESS: The patient is a 70-year-old female with chronic obstructive pulmonary disease who was admitted with shortness of breath. This has been worked on with some diuresis and she is doing better from the point of view. She was also noted to be hypokalemic which is being replenished. She was started on antibiotics. I have been asked to see her because of a wound on her left leg that happened with an injury approximately three weeks ago that was said to be a flap. It was sutured, the sutures were removed and the wound has opened and has some purulent drainage. PAST MEDICAL HISTORY: 1. Renal insufficiency. 2. History of myocarditis. 3. History of congestive heart failure. 4. Chronic lymphedema in the lower extremities. 5. Migraines. 6. Gamekeeper's thumb. 7. Depression. 8. Anxiety. 9. Hypertension. 10. Rheumatoid arthritis. 11. Obesity. 12. Hyperlipidemia. 13. Gastroesophageal reflux. 14. Coronary artery disease. 15. Psoriasis. 16. Type 2 diabetes. 17. History of methicillin-resistant Staphylococcus . PAST SURGICAL HISTORY: 1. Appendectomy. 2. Laparotomy. 3. times two. 4. Hysterectomy. 5. Left carpal tunnel release. 6. Tonsillectomy. CURRENT MEDICATIONS: As listed in the medical record. ALLERGIES: CODEINE. FAMILY HISTORY: Positive for hypertension, coronary artery disease, diabetes, leukemia, heart failure, brain tumor of uncertain etiology. SOCIAL HISTORY: The patient has never smoked. She lives at [facility]. She is . She has two children. There is no history of alcohol or drug use. REVIEW OF SYSTEMS: The patient states that there is no increased edema in the leg. She denies pain currently in the leg. PHYSICAL EXAMINATION: VITAL SIGNS: Afebrile. Normotensive. EXTREMITIES: Her leg shows chronic, gross, pitting edema. It is nontender. There is ecchymosis over the lower leg on the upper aspect of the lateral aspect of the leg. There is a wound that is approximately 3 by 2 cm and has a small amount of purulent drainage. There is no significant surrounding erythema. There is no induration. It is nontender. There is no odor. LABORATORY: Potassium 3.4, creatinine 1.84. White blood cell count 12.6, it was 16 on admission. Segmented neutrophil count is 84. Platelet count 178,000 , hemoglobin 9.2. IMPRESSION: 1. Wound with flap loss, granulating okay, no signs of surrounding cellulitis or deep abscess. 2. Mild leukocytosis and left shift. 3. Anemia, probably of chronic disease. 4. Renal insufficiency. 5. Diabetes. 6. Chronic obstructive pulmonary disease. 7. Chronic edema. RECOMMENDATION: Local wound care with Eric Mendieta. We will have her shower on a daily basis to clean the wound. I will follow the patient intermittently with you. #[id number] [facility]
[2016-04-23] MEDS: POTASSIUM CHLORIDE 10 MEQ TAB PO SCH ×2 (12:59→21:01)
[2016-04-23] MEDS: KCL 40MEQ/NS 1,000 ML IVS PRN (13:08)
[2016-04-23] MEDS: IV SET AND CAP CHANGE INJ INJ SCH (19:19)
[2016-04-23] MEDS ORDERED: SODIUM CHLORIDE 0.9% 250ML 250 ML ONE (20:23)
[2016-04-23] MEDS ORDERED: AZITHROMYCIN IV 500 MG VIAL IVPB ONE (20:25)
[2016-04-23] MEDS: DULoxetine HCL 30 MG CAP PO SCH (21:00)
[2016-04-23] MEDS: MONTELUKAST SODIUM 10 MG TAB PO SCH (21:00)
[2016-04-23] MEDS: MIRTAZAPINE 15 MG TAB PO SCH (21:01)
[2016-04-23] MEDS: ENOXAPARIN SODIUM 40 MG/0.4 ML SYG SUBCU SCH (21:02)
[2016-04-23] MEDS: SODIUM CHLORIDE 0.9% (FLUSH) 10 ML SYG IV PRN (21:03)
[2016-04-23] MEDS: AZITHROMYCIN IV 500 MG in SODIUM CHLORIDE 0.9% 250ML 250 ML IVPB SCH (21:03)
[2016-04-23] MEDS: TEMAZEPAM 15 MG CAP PO PRN (21:08)
[2016-04-24] MEDS ORDERED: LEVOTHYROXINE SODIUM 0.075 MG TAB ONE (06:24)
[2016-04-24] MEDS ORDERED: LEVOTHYROXINE SODIUM 0.1 MG TAB ONE (06:24)
[2016-04-24] MEDS: SODIUM CHLORIDE 0.9% (FLUSH) 10 ML SYG IV PRN (06:24)
[2016-04-24] MEDS ORDERED: SODIUM CHL 0.9% 50ML MIN-BAG+ 50 ML IVPB ONE ×2 (06:24→14:51)
[2016-04-24] MEDS: CEFEPIME 2 GM in SODIUM CHL 0.9% 50ML MIN-BAG+ 50 ML IVPB SCH ×2 (06:25→17:33)
[2016-04-24] MEDS ORDERED: CEFEPIME 2 GM VIAL IVPB ONE ×2 (06:25→14:53)
[2016-04-24] MEDS: LEVOTHYROXINE SODIUM 0.1 MG, LEVOTHYROXINE SODIUM 0.075 MG PO SCH ×2 (06:26)
[2016-04-24] MEDS: SUCRALFATE 1 GM TAB PO SCH ×4 (06:26→21:04)
[2016-04-24] MEDS: INSULIN DETEMIR 100 UNITS/ML PEN SUBCU SCH ×2 (08:21→09:29)
[2016-04-24] MEDS: INSULIN LISPRO 100 UNITS/ML PEN SUBCU SCH ×4 (08:22→21:21)
[2016-04-24] MEDS: METOPROLOL TARTRATE 50 MG TAB PO SCH ×2 (08:22→16:37)
[2016-04-24] MEDS: KCL 40MEQ/NS 1,000 ML IVS PRN (08:23)
[2016-04-24] MEDS: IPRATROPIUM/ALBUTEROL 3 ML VIAL NEB SCH ×4 (09:15→20:40)
[2016-04-24] MEDS: MIRABEGRON 25 MG PO SCH (09:18)
[2016-04-24] MEDS: ULORIC 40 MG PO SCH (09:18)
[2016-04-24] MEDS: LOSARTAN POTASSIUM 25 MG TAB PO SCH ×2 (09:19→21:02)
[2016-04-24] MEDS: BIFIDOBACTERIUM INFANTIS 4 MG CAP PO SCH (09:19)
[2016-04-24] MEDS: POTASSIUM CHLORIDE 20 MEQ TAB PO SCH (09:20)
[2016-04-24] MEDS: FUROSEMIDE 40 MG TAB PO SCH ×2 (09:21→16:37)
[2016-04-24] MEDS: predniSONE 5 MG TAB PO SCH ×3 (09:22→21:03)
[2016-04-24] MEDS: PREGABALIN 100 MG CAP PO SCH ×3 (09:22→21:03)
[2016-04-24] MEDS: BENZONATATE PERLES 100 MG CAP PO SCH ×3 (09:22→21:03)
[2016-04-24] MEDS: guaiFENesin ER TAB 600 MG TAB PO SCH ×2 (09:23→21:02)
[2016-04-24] MEDS: NYSTATIN SUSPENSION 5 ML UD MT SCH ×3 (09:23→21:03)
[2016-04-24] MEDS: SITagliptin 50 MG TAB PO SCH (09:23)
[2016-04-24] MEDS: SILVER SULFADIAZINE 1 % 25 GM TUBE TOP SCH (09:25)
[2016-04-24] MEDS: CHLORHEXIDINE GLUCONATE 4 % 15 ML UD TOP SCH (09:31)
[2016-04-24] MEDS: POTASSIUM CHLORIDE 10 MEQ TAB PO SCH ×2 (12:00→21:02)
[2016-04-24] MEDS: SODIUM CHLORIDE 0.9% (FLUSH) 10 ML SYG IV SCH ×2 (15:05→21:04)
--- NOTE | 2016-04-24 15:34 | PN ---
DATE: 04/24/16 SUBJECTIVE: The patient is sitting in her bed and in many ways seems to be in less distress. Earlier she walked by transfer from the bed to the chair. She did have some dyspnea quite noticeably as well as some left sided chest pain. Of note is the significant tenderness even now with the chest pain gone within the left anterior chest wall which the patient states duplicates the pain she keeps having. OBJECTIVE: LUNGS: Still with some diminished breath sounds, still with some dyspnea upon exertion. HEART: Tones somewhat distant. ABDOMEN: Soft, yet obese. EXTREMITIES: Still with massive enlarged and increased circumference of the lower extremities, primarily with lymphedema and adipose infiltration of the tissues present for many years. LABORATORY: Sugars have been down to about 211 fasting this morning, but was up to 312 at 4 o'clock yesterday afternoon. For this reason, we are starting her on 10 of Levemir daily to see if it will assist with the hyperglycemia, which may have been contributed to by the recent corticosteroid administrations. ASSESSMENT: 1. Acute right lower lobe infiltrative pneumonia, most likely health care acquired with the patient residing in [facility], now on her third day of treatment with cefepime and azithromycin. 2. Chronic obstructive pulmonary disease with an acute exacerbation, currently on chronic steroid dosing with chronic oxygen supplementation and pulmonary hygiene. 3. Hypokalemia, requiring supplementation. 4. Hyponatremia, improved. 5. Leukocytosis, improved. 6. Chronic congestive heart failure with diastolic dysfunction and an ejection fraction of 55% in February of 2015. 7. Chronic lymphedema to the lower extremities. 8. Wound healing after sutures placed with a localized infection with wound care team approach to ongoing healing, especially with poor health of the skin with the associated lymphedema. 9. Diabetes mellitus, type 2. 10. Chronic morbid obesity. 11. History of methicillin-resistant Staphylococcus aureus infections in the past. PLAN: The patient will have an interview and evaluation by [facility] to see if it would be satisfactory as a potential alternative for eventual placement. Her sons wish to take her to [place], but the patient has an extreme aversion to going to [place] with significant anxiety and panic attacks even thinking about it. Continue evaluation and management. Work with Social Service on discharge planning. #[id number] [facility]
[2016-04-24] MEDS ORDERED: SODIUM CHLORIDE 0.9% 250ML 250 ML ONE (20:23)
[2016-04-24] MEDS ORDERED: AZITHROMYCIN IV 500 MG VIAL IVPB ONE (20:25)
[2016-04-24] MEDS: DULoxetine HCL 30 MG CAP PO SCH (21:03)
[2016-04-24] MEDS: MONTELUKAST SODIUM 10 MG TAB PO SCH (21:03)
[2016-04-24] MEDS: MIRTAZAPINE 15 MG TAB PO SCH (21:04)
[2016-04-24] MEDS: ENOXAPARIN SODIUM 40 MG/0.4 ML SYG SUBCU SCH ×2 (21:04→21:20)
[2016-04-24] MEDS: AZITHROMYCIN IV 500 MG in SODIUM CHLORIDE 0.9% 250ML 250 ML IVPB SCH (21:05)
[2016-04-25] MEDS: HYDROcodone 5MG/APAP 325MG 1 EA TAB PO PRN ×4 (01:02→20:03)
[2016-04-25] MEDS ORDERED: SODIUM CHL 0.9% 50ML MIN-BAG+ 50 ML IVPB ONE ×2 (04:25→15:02)
[2016-04-25] MEDS ORDERED: CEFEPIME 2 GM VIAL IVPB ONE ×2 (04:26→15:03)
[2016-04-25] MEDS ORDERED: LEVOTHYROXINE SODIUM 0.1 MG TAB ONE (04:26)
[2016-04-25] MEDS ORDERED: LEVOTHYROXINE SODIUM 0.075 MG TAB ONE (04:26)
[2016-04-25] MEDS: SODIUM CHLORIDE 0.9% (FLUSH) 10 ML SYG IV PRN (05:40)
[2016-04-25] MEDS: CEFEPIME 2 GM in SODIUM CHL 0.9% 50ML MIN-BAG+ 50 ML IVPB SCH ×2 (05:46→18:22)
[2016-04-25] MEDS: LEVOTHYROXINE SODIUM 0.1 MG, LEVOTHYROXINE SODIUM 0.075 MG PO SCH ×2 (06:20)
[2016-04-25] MEDS: SUCRALFATE 1 GM TAB PO SCH ×4 (06:21→20:41)
[2016-04-25] MEDS: METOPROLOL TARTRATE 50 MG TAB PO SCH ×2 (07:45→16:55)
[2016-04-25] MEDS: INSULIN LISPRO 100 UNITS/ML PEN SUBCU SCH ×4 (07:46→20:57)
[2016-04-25] MEDS: ULORIC 40 MG PO SCH (09:40)
[2016-04-25] MEDS: MIRABEGRON 25 MG PO SCH (09:42)
[2016-04-25] MEDS: LOSARTAN POTASSIUM 25 MG TAB PO SCH ×2 (09:42→20:42)
[2016-04-25] MEDS: BIFIDOBACTERIUM INFANTIS 4 MG CAP PO SCH (09:43)
[2016-04-25] MEDS: FUROSEMIDE 40 MG TAB PO SCH ×2 (09:43→16:55)
[2016-04-25] MEDS: guaiFENesin ER TAB 600 MG TAB PO SCH ×2 (09:44→20:41)
[2016-04-25] MEDS: POTASSIUM CHLORIDE 20 MEQ TAB PO SCH (09:44)
[2016-04-25] MEDS: BENZONATATE PERLES 100 MG CAP PO SCH ×3 (09:45→20:41)
[2016-04-25] MEDS: NYSTATIN SUSPENSION 5 ML UD MT SCH ×3 (09:45→20:40)
[2016-04-25] MEDS: predniSONE 5 MG TAB PO SCH ×2 (09:46→15:17)
[2016-04-25] MEDS: SITagliptin 50 MG TAB PO SCH (09:47)
[2016-04-25] MEDS: INSULIN DETEMIR 100 UNITS/ML PEN SUBCU SCH (09:48)
[2016-04-25] MEDS: IPRATROPIUM/ALBUTEROL 3 ML VIAL NEB SCH ×4 (09:51→19:40)
[2016-04-25] MEDS: PREGABALIN 100 MG CAP PO SCH ×3 (09:56→20:41)
[2016-04-25] MEDS: SODIUM CHLORIDE 0.9% (FLUSH) 10 ML SYG IV SCH ×2 (10:00→20:42)
[2016-04-25] MEDS: CHLORHEXIDINE GLUCONATE 4 % 15 ML UD TOP SCH (10:08)
[2016-04-25] MEDS: SILVER SULFADIAZINE 1 % 25 GM TUBE TOP SCH (10:09)
[2016-04-25] MEDS: POTASSIUM CHLORIDE 10 MEQ TAB PO SCH ×2 (12:07→20:41)
[2016-04-25] MEDS ORDERED: SODIUM CHLORIDE 0.9% 250ML 250 ML ONE (19:52)
--- NOTE | 2016-04-25 19:53 | PN ---
DATE: 04/25/16 SUBJECTIVE: The patient is sitting up and in many ways appears to be more alert and in less distress today. No significant shake or tremors. She did have a migraine headache behind her right eye last evening which was helped eventually by some Hydrocodone which she will have available at [facility]. Discussed the situation with her son who continues to assist the mom with her ongoing care. OBJECTIVE: Afebrile, pulse 91, blood pressure 154/80, pulse oximetry 93% room air. Intake and output shows fairly significant output and will continue to decrease some of the IV volume. LUNGS: Relatively clear. HEART: Tones regular. ABDOMEN: Obese and somewhat tender in the epigastrium, otherwise soft. No bowel movement today. Weight is up a little bit even with the generous diuresis noted. LABORATORY: Hemoglobin is up to 9.3 with white count 12,800 with 77% neutrophils. Chemistry shows potassium 4.4, CO2 of 32, BUN has come down to 58 and creatinine of 1.4. Fasting blood sugar is 118 which has been helped by the 10 units of Levemir given which eventually will need to be stopped as she continues to taper down off of the corticosteroids. Blood cultures are negative. The patient is seen in consultation by Dr. Pendleton who will assist in following her lateral left leg incision which has some drainage and will require some additional wound care. ASSESSMENT: 1. Acute right lower lobe infiltrative pneumonia, most likely health care acquired with the patient residing in [facility], now on her third day of treatment with cefepime and azithromycin. 2. Chronic obstructive pulmonary disease with an acute exacerbation, currently on chronic steroid dosing with chronic oxygen supplementation and pulmonary hygiene. 3. Hypokalemia, requiring supplementation. 4. Hyponatremia, improved. 5. Leukocytosis, improved. 6. Chronic congestive heart failure with diastolic dysfunction and an ejection fraction of 55% in February of 2015. 7. Chronic lymphedema to the lower extremities. 8. Wound healing after sutures placed with a localized infection with wound care team approach to ongoing healing, especially with poor health of the skin with the associated lymphedema. 9. Diabetes mellitus, type 2. 10. Chronic morbid obesity. 11. History of methicillin-resistant Staphylococcus aureus infections in the past. PLAN: Will continue with supportive care. Will place a saline lock to help decrease some of the fluid intake. Check for the status of Lasix. Eventually will be able to stop the Levemir. Currently being evaluated with Social Service for return back to [facility]. Suggest physical therapy rehabilitation to increase strength and to reduce risk of falls upon her arrival. Reevaluate in the morning and consider outpatient therapy when stable. #[id number] MTDD
[2016-04-25] MEDS ORDERED: AZITHROMYCIN IV 500 MG VIAL IVPB ONE (19:54)
[2016-04-25] MEDS: MONTELUKAST SODIUM 10 MG TAB PO SCH (20:40)
[2016-04-25] MEDS: DULoxetine HCL 30 MG CAP PO SCH (20:41)
[2016-04-25] MEDS: TEMAZEPAM 15 MG CAP PO PRN (20:41)
[2016-04-25] MEDS: MIRTAZAPINE 15 MG TAB PO SCH (20:41)
[2016-04-25] MEDS: AZITHROMYCIN IV 500 MG in SODIUM CHLORIDE 0.9% 250ML 250 ML IVPB SCH (20:42)
[2016-04-25] MEDS: ENOXAPARIN SODIUM 40 MG/0.4 ML SYG SUBCU SCH (20:43)
[2016-04-26] MEDS ORDERED: LEVOTHYROXINE SODIUM 0.075 MG TAB ONE (04:04)
[2016-04-26] MEDS ORDERED: SODIUM CHL 0.9% 50ML MIN-BAG+ 50 ML IVPB ONE (04:04)
[2016-04-26] MEDS ORDERED: CEFEPIME 2 GM VIAL IVPB ONE (04:05)
[2016-04-26] MEDS ORDERED: LEVOTHYROXINE SODIUM 0.1 MG TAB ONE (04:05)
[2016-04-26] MEDS: CEFEPIME 2 GM in SODIUM CHL 0.9% 50ML MIN-BAG+ 50 ML IVPB SCH ×2 (05:43→19:38)
[2016-04-26] MEDS: SODIUM CHLORIDE 0.9% (FLUSH) 10 ML SYG IV PRN (05:44)
[2016-04-26] MEDS: LEVOTHYROXINE SODIUM 0.1 MG, LEVOTHYROXINE SODIUM 0.075 MG PO SCH ×2 (06:23)
[2016-04-26] MEDS: SUCRALFATE 1 GM TAB PO SCH ×4 (06:23→20:46)
[2016-04-26] MEDS: INSULIN LISPRO 100 UNITS/ML PEN SUBCU SCH ×4 (07:01→21:14)
[2016-04-26] MEDS: METOPROLOL TARTRATE 50 MG TAB PO SCH ×2 (08:02→17:16)
[2016-04-26] MEDS: IPRATROPIUM/ALBUTEROL 3 ML VIAL NEB SCH ×4 (09:10→20:05)
[2016-04-26] MEDS: HYDROcodone 5MG/APAP 325MG 1 EA TAB PO PRN ×3 (09:33→20:43)
[2016-04-26] MEDS: SITagliptin 50 MG TAB PO SCH (09:34)
[2016-04-26] MEDS: FUROSEMIDE 40 MG TAB PO SCH ×2 (09:34→17:17)
[2016-04-26] MEDS: predniSONE 10 MG TAB PO SCH (09:34)
[2016-04-26] MEDS: BENZONATATE PERLES 100 MG CAP PO SCH ×4 (09:34→20:43)
[2016-04-26] MEDS: PREGABALIN 100 MG CAP PO SCH ×4 (09:34→20:42)
[2016-04-26] MEDS: guaiFENesin ER TAB 600 MG TAB PO SCH ×2 (09:34→20:43)
[2016-04-26] MEDS: BIFIDOBACTERIUM INFANTIS 4 MG CAP PO SCH (09:35)
[2016-04-26] MEDS: POTASSIUM CHLORIDE 20 MEQ TAB PO SCH (09:35)
[2016-04-26] MEDS: LOSARTAN POTASSIUM 25 MG TAB PO SCH ×2 (09:35→20:43)
[2016-04-26] MEDS: MIRABEGRON 25 MG PO SCH (09:36)
[2016-04-26] MEDS: ULORIC 40 MG PO SCH (09:36)
[2016-04-26] MEDS: NYSTATIN SUSPENSION 5 ML UD MT SCH ×3 (09:37→20:42)
[2016-04-26] MEDS: INSULIN DETEMIR 100 UNITS/ML PEN SUBCU SCH (09:37)
[2016-04-26] MEDS: SODIUM CHLORIDE 0.9% (FLUSH) 10 ML SYG IV SCH ×2 (09:38→20:45)
[2016-04-26] MEDS: SILVER SULFADIAZINE 1 % 25 GM TUBE TOP SCH (09:43)
[2016-04-26] MEDS: CHLORHEXIDINE GLUCONATE 4 % 15 ML UD TOP SCH (09:43)
[2016-04-26] MEDS: POTASSIUM CHLORIDE 10 MEQ TAB PO SCH ×2 (12:14→20:42)
[2016-04-26] MEDS: IV SET AND CAP CHANGE INJ INJ SCH (19:36)
[2016-04-26] MEDS: DULoxetine HCL 30 MG CAP PO SCH (20:42)
[2016-04-26] MEDS: DOXYCYCLINE HYCLATE CAP 100 MG CAP PO SCH (20:42)
[2016-04-26] MEDS: MONTELUKAST SODIUM 10 MG TAB PO SCH (20:43)
[2016-04-26] MEDS: MIRTAZAPINE 15 MG TAB PO SCH (20:43)
[2016-04-26] MEDS: ENOXAPARIN SODIUM 40 MG/0.4 ML SYG SUBCU SCH (20:44)
--- NOTE | 2016-04-26 21:50 | PN ---
DATE: 04/26/16 SUPERVISING PHYSICIAN: Osmany Daigle M.D. SUBJECTIVE: The patient is lying in bed. She complains of shortness of breath and just generally feeling poorly. Otherwise she denies any chest pain, abdominal pain, nausea or vomiting. OBJECTIVE: VITAL SIGNS: She is afebrile, pulse rate 98, blood pressure 121/73, respiratory rate 20, O2 sat is 86% to 90% on 2 liters nasal cannula. RESPIRATORY: Lungs are essentially clear to auscultation bilaterally. She is diminished at the bases. HEART: Regular rate and rhythm. ABDOMEN: Obese, soft , nondistended. Bowel sounds are positive. NEUROLOGIC: She is awake, alert and oriented times three. LABORATORY: WBCs are 12.8, hemoglobin and hematocrit are stable at 9.3 and 31.4. Carbon dioxide 32, BUN 56, creatinine 1.4. All other labs and films have been reviewed via the EMR. ASSESSMENT: 1. Acute right lower lobe infiltrative pneumonia most likely healthcare acquired with the patient residing at [facility]. 2. Chronic obstructive pulmonary disease with acute exacerbation currently on chronic steroid dosing and chronic oxygen supplementation. 3. Hypokalemia that has improved. 4. Hyponatremia that has improved. 5. Leukocytosis that has improved. 6. Chronic congestive heart failure with diastolic dysfunction and an ejection fraction of 55% in February of 2015. 7. Chronic lymphedema to the lower extremities. 8. Diabetes mellitus type 2. 9. Chronic morbid obesity. 10. Wound to left lower leg that requires ongoing wound care. 11. History of Methicillin resistant Staphylococcus aureus in the past. PLAN: We will continue with present supportive care. She lost her IV site today, so I have discontinued her Cefepime and her Azithromycin and changed it to Doxycycline. Plans are in motion for her to be discharged to a longterm care in [place] where he oldest son lives. Hopefully she can be discharged there tomorrow. At this point, we will continue to encourage good pulmonary toilet. Hopefully she can be discharged tomorrow. Dr. Daigle is the collaborating physician available for consultation. #[id number] [facility]
[2016-04-26] MEDS: TEMAZEPAM 15 MG CAP PO PRN (21:58)
[2016-04-26] MEDS: ALBUTEROL SULFATE 2.5 MG/3 ML VIAL NEB PRN (23:00)
[2016-04-27] MEDS: HYDROcodone 5MG/APAP 325MG 1 EA TAB PO PRN (00:46)
[2016-04-27] MEDS ORDERED: LEVOTHYROXINE SODIUM 0.1 MG TAB PO ONE (06:00)
[2016-04-27] MEDS ORDERED: LEVOTHYROXINE SODIUM 0.1 MG TAB ONE (06:06)
[2016-04-27] MEDS ORDERED: LEVOTHYROXINE SODIUM 0.075 MG TAB ONE ×2 (06:06→06:07)
[2016-04-27] MEDS: SUCRALFATE 1 GM TAB PO SCH ×2 (06:31→12:06)
[2016-04-27] MEDS: LEVOTHYROXINE SODIUM 0.1 MG, LEVOTHYROXINE SODIUM 0.075 MG PO SCH ×2 (06:31)
[2016-04-27] MEDS: METOPROLOL TARTRATE 50 MG TAB PO SCH (08:01)
[2016-04-27] MEDS: IPRATROPIUM/ALBUTEROL 3 ML VIAL NEB SCH ×3 (09:04→13:16)
[2016-04-27] MEDS: INSULIN LISPRO 100 UNITS/ML PEN SUBCU SCH ×2 (09:50→12:05)
[2016-04-27] MEDS: SITagliptin 50 MG TAB PO SCH (09:52)
[2016-04-27] MEDS: DOXYCYCLINE HYCLATE CAP 100 MG CAP PO SCH (09:52)
[2016-04-27] MEDS: BENZONATATE PERLES 100 MG CAP PO SCH ×2 (09:52→15:15)
[2016-04-27] MEDS: POTASSIUM CHLORIDE 20 MEQ TAB PO SCH (09:53)
[2016-04-27] MEDS: NYSTATIN SUSPENSION 5 ML UD MT SCH ×2 (09:53→15:15)
[2016-04-27] MEDS: LOSARTAN POTASSIUM 25 MG TAB PO SCH (09:53)
[2016-04-27] MEDS: predniSONE 10 MG TAB PO SCH (09:53)
[2016-04-27] MEDS: guaiFENesin ER TAB 600 MG TAB PO SCH (09:54)
[2016-04-27] MEDS: BIFIDOBACTERIUM INFANTIS 4 MG CAP PO SCH (09:54)
[2016-04-27] MEDS: PREGABALIN 100 MG CAP PO SCH ×2 (09:54→15:15)
[2016-04-27] MEDS: SODIUM CHLORIDE 0.9% (FLUSH) 10 ML SYG IV SCH (09:55)
[2016-04-27] MEDS: ULORIC 40 MG PO SCH (09:56)
[2016-04-27] MEDS: MIRABEGRON 25 MG PO SCH (09:56)
[2016-04-27] MEDS: CHLORHEXIDINE GLUCONATE 4 % 15 ML UD TOP SCH (09:58)
[2016-04-27] MEDS: SILVER SULFADIAZINE 1 % 25 GM TUBE TOP SCH (09:58)
[2016-04-27] MEDS: FUROSEMIDE 40 MG TAB PO SCH (09:59)
[2016-04-27] MEDS: INSULIN DETEMIR 100 UNITS/ML PEN SUBCU SCH (09:59)
[2016-04-27] MEDS: POTASSIUM CHLORIDE 10 MEQ TAB PO SCH (12:06)
[2016-04-27 12:09] VITALS: O2SAT 96
[2016-04-27 15:01] VITALS: BP 115/70; TEMP 96.9
--- NOTE | 2016-04-27 21:05 | DS ---
SUPERVISING PHYSICIAN: Osmany Daigle M.D. DISCHARGE DIAGNOSIS: 1. Acute right lower lobe infiltrative pneumonia most likely healthcare acquired with the patient residing at [facility]. 2. Chronic obstructive pulmonary disease with acute exacerbation currently on chronic steroid dosing and chronic oxygen supplementation. 3. Hypokalemia that has improved. 4. Hyponatremia that has improved. 5. Leukocytosis that has improved. 6. Chronic congestive heart failure with diastolic dysfunction and an ejection fraction of 55% in February of 2015. 7. Chronic lymphedema to the lower extremities. 8. Diabetes mellitus type 2. 9. Chronic morbid obesity. 10. Wound to left lower leg that requires ongoing wound care. 11. History of Methicillin resistant Staphylococcus aureus in the past. HISTORY OF PRESENT ILLNESS: This is a 70 year-old female patient who lives at [facility]. She has an extensive history of chronic obstructive pulmonary disease with hypoxia and she is on O2 chronically. She has had multiple admissions over the last month for multiple different symptoms and diagnoses. On the date of admission, she had some difficulty swallowing and her throat was sore. She was brought to the Emergency Room. Per CT she was found to have the start of a right lower lobe pneumonia and she had some desaturations into the high 80s. She also had a wound on her lateral left leg. She has been seeing Dr. Butler, her primary care physician, for this. She was also found to be hypokalemic in the E. R. with a potassium of 2.5. She was also started on Azithromycin and Cefepime. She is chronically on quite high doses of diuretics and has a history of MRSA infections in the past. She has some chronic renal insufficiency and her baseline creatinine is about 1.5. She was admitted to the hospital for right lower lobe pneumonia most likely healthcare acquired as she lives in [facility]. HOSPITAL COURSE: During her stay here, she slowly improved. She also was noted to have a new wound to her left lower leg. Wound care was ordered for her wound. It is slightly improved. She continued on her antibiotic therapy as well as good pulmonary toilet over the next several days. She also had physical therapy as she is quite weak and has a very difficult time getting around. She also had a Robles catheter placed at her request as she is very weak and she has a difficult time getting up to the bedside commode. Dr. Pendleton was consulted at some point for her wound care. He gave recommendations as to the wound care to be cleaned with Hibiclens and use of Silvadene. She has a son that lives in [place] as well as a son that lives here in [place]. Over the last year or so, she has been trying to move into a rodent exterminator care facility in [place] to be close to her older son, but she was accepted at [facility]. She was on Azithromycin and Cefepime, and she lost her IV site, and we changed her to Doxycycline which she is presently on. Physical Therapy recommended she go to a [facility] with continued rehabilitation. She has shortness of breath and deconditioning from her hospital stay. She needs assistance for transfer and needs supervision for all gait. At this point, she has reached her full potential at the hospital and has reached her baseline status. H&H is stable at 9.6 and 32.9. Creatinine is 1.21. She will be discharged today. DISCHARGE PLAN: Unfortunately we were unable to get transportation via ambulance to [facility] in [place] at this time. Arrangements were made with her son in [place] that he would come get her this weekend from [facility], so she will be discharged to [facility] so he can take her to [place], and be admitted at that time. Nikole Herrera, our Summer School Coordinator, made arrangements between her son, Garry, and the [facility] facility that they would take her as a transfer from [facility], so she will be discharged to [facility] today in stable condition. She is to resume a diabetic diet. She is to continue her previous home medications. We have done some adjusting on her Furosemide and she is now at 40 mg twice a day. She is also to continue on her Doxycycline twice a day for 10 additional days. She is to return to the hospital or call Dr. Butler's office for any further problems. Hopefully she will go to [place] this weekend when her son comes to pick her up. DISCHARGE MEDICATIONS: 1. Clonazepam. 2. Singulair. 3. Zanaflex. 4. Hydrocodone. 5. Folic acid. 6. Metolazone. 7. [place]-3 fatty acids. 8. Levothyroxine. 9. Mirtazapine. 10. Vitamin E. 11. Potassium chloride. 12. Metformin. 13. Albuterol sulfate nebulizers. 14. Benzonatate. 15. Atrovent. 16. Diphenhydramine. 17. Cranberry, Vitamin C and Vitamin E. 18. Myrbetriq. 19. Rizatriptan benzoate. 20. Sonata. 21. Nasacort. 22. Nitroglycerin. 23. Acetaminophen. 24. Uloric. 25. Pantoprazole. 26. Carafate. 27. Lyrica. 28. Furosemide. 29. Bumex. 30. Guaifenesin. 31. Januvia. 32. Vitamin D. 33. Vitamin B12. 34. Lactobacillus. 35. Metoprolol. 36. Losartan. 37. Nystatin suspension. 38. Cymbalta. 39. Doxycycline. 40. Prednisone[address]. Daigle is the collaborating physician available for consultation. #[id number] [facility]
== END 2016-04-27 16:20 | disposition home or self-care (01) | DRG 190 ==
LOC: ER 11:37 → MS 15:54
PROVIDERS: ADMIT Family Medicine; ATTEND Nurse Practitioner Acute Care
DX: J44.0 Chronic obstructive pulmonary disease with (acute) lower respiratory infection (principal); J18.9 Pneumonia, unspecified organism; E87.1 Hypo-osmolality and hyponatremia; I13.0 Hypertensive heart and chronic kidney disease with heart failure and stage 1 through stage 4 chronic kidney disease, or unspecified chronic kidney disease; I50.32 Chronic diastolic (congestive) heart failure; Z68.43 Body mass index [BMI] 50.0-59.9, adult; R09.02 Hypoxemia; J44.1 Chronic obstructive pulmonary disease with (acute) exacerbation; E87.6 Hypokalemia; E11.22 Type 2 diabetes mellitus with diabetic chronic kidney disease; N18.3 Chronic kidney disease, stage 3 (moderate); I89.0 Lymphedema, not elsewhere classified; F32.9 Major depressive disorder, single episode, unspecified; G43.909 Migraine, unspecified, not intractable, without status migrainosus; S81.802D Unspecified open wound, left lower leg, subsequent encounter; L08.9 Local infection of the skin and subcutaneous tissue, unspecified; F41.9 Anxiety disorder, unspecified; M06.9 Rheumatoid arthritis, unspecified; K21.9 Gastro-esophageal reflux disease without esophagitis; E78.5 Hyperlipidemia, unspecified; D63.8 Anemia in other chronic diseases classified elsewhere; F41.0 Panic disorder [episodic paroxysmal anxiety]; I25.10 Atherosclerotic heart disease of native coronary artery without angina pectoris; L40.9 Psoriasis, unspecified; Y95 Nosocomial condition; E66.01 Morbid (severe) obesity due to excess calories; Z86.14 Personal history of Methicillin resistant Staphylococcus aureus infection; Z99.81 Dependence on supplemental oxygen; Z88.5 Allergy status to narcotic agent; Z66 Do not resuscitate; Z79.52 Long term (current) use of systemic steroids